=== PATIENT | female | born 1970 | race Caucasian/White ===

== ENCOUNTER 2017-04-21 10:52 | Outpatient (CLI) | payer MEDICAID | END 2017-04-21 10:53 | disposition critical access hospital (66) | LOC: EMS 10:52 | PROVIDERS: ATTEND Surgery | DX: R46.4 Slowness and poor responsiveness (principal); R73.09 Other abnormal glucose | CPT/HCPCS: A0425; A0427 ==

== ENCOUNTER 2017-04-21 11:21 | Inpatient (IN) | payer MEDICAID ==
[2017-04-21] MEDS ORDERED: SODIUM CHLORIDE 0.9% 1,000 ML IV ONE ×4 (11:36→18:14)
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
[2017-04-21 12:14] LABS: MUDS CUTOFF CONCENTRATIONS CUTOFF CONC BELOW:
[2017-04-21 12:20] LABS: VBG BASE EXCESS -32.2 mmol/L (-2 - +2); VBG PCO2 21.6 mmHg (41-51); VBG PH 6.741 (7.31-7.41); VBG PO2 71.2 mmHg (25-47); VBG TOTAL CO2 3.5 mmol/L (24-29)
[2017-04-21 12:21] LABS: BASOPHILS # (AUTO) 0.2 10^3/uL (0.0-0.1); BASOPHILS % (AUTO) 0.7 %; HGB - HEMOGLOBIN 12.2 g/dL (12.0-16.0); LYMPHOCYTES # (AUTO) 1.5 10^3/uL (1.5-3.5); LYMPHOCYTES % (AUTO) 5.8 %; MEAN CORPUSCULAR HGB CONC 30.5 g/dL (32.0-36.0); MEAN PLATELET VOLUME 8.5 fL (7.9-10.8); MONOCYTES # (AUTO) 3.4 10^3/uL (0.0-1.0); MONOCYTES % (AUTO) 13.7 %; NEUTROPHILS # (AUTO) 20.1 10^3/uL (1.5-6.6); NEUTROPHILS % (AUTO) 79.8 %; PLT - PLATELET COUNT 355 10^3/uL (130-450); RED BLOOD COUNT 3.82 10^6/uL (4.20-5.40); RED CELL DISTRIBUTION WIDTH 15.2 % (12.0-15.0); WHITE BLOOD COUNT 25.2 x10^3/uL (4.8-10.8)
[2017-04-21] MEDS ORDERED: INSULIN REGULAR HUMAN 100 UNIT in SODIUM CHLORIDE 0.9% 100ML 99 ML IV STA (12:22)
[2017-04-21] MEDS ORDERED: INSULIN REGULAR HUMAN 100 UNIT/1 ML 10 ML MDV IVP STA (12:22)
[2017-04-21 12:23] LABS: BILIRUBIN,URINE NEGATIVE (NEGATIVE); GLUCOSE, URINE (UA) >=1000 mg/dL (NEGATIVE); KETONES,URINE (UA) 40 mg/dL (NEGATIVE); LEUKOCYTE ESTERASE, URINE NEGATIVE (NEGATIVE); NITRITE,URINE NEGATIVE (NEGATIVE); OCCULT BLOOD,URINE LARGE (NEGATIVE); PROTEIN,URINE 100 mg/dL (NEGATIVE); UROBILINOGEN,URINE 0.2 (NORMAL) E.U./dL (NORMAL)
[2017-04-21 12:27] LABS: CLARITY,URINE CLOUDY (CLEAR); HCG UR QUAL NEGATIVE
[2017-04-21 12:33] LABS: AMORPHOUS SEDIMENT,UR Few /LPF; BACTERIA,URINE Moderate /HPF (None Seen); SQUAMOUS EPITHELIAL CELL,UR FEW Squamous (<= Few)
[2017-04-21 12:35] LABS: AMPHETAMINE SCREEN,URINE NEGATIVE (NEGATIVE); BENZODIAZEPINES SCREEN, URINE NEGATIVE (NEGATIVE); COCAINE SCREEN URINE NEGATIVE (NEGATIVE); METHADONE SCREEN, URINE NEGATIVE (NEGATIVE); METHAMPHETAMINES SCREEN, URINE NEGATIVE (NEGATIVE); OPIATE SCREEN, URINE NEGATIVE (NEGATIVE); OXYCODONE SCREEN, URINE NEGATIVE (NEGATIVE); PROPOXYPHENE SCREEN, URINE NEGATIVE (NEGATIVE); TRICYCLIC ANTIDEPRESSANT,URINE NEGATIVE (NEGATIVE)
[2017-04-21 12:41] LABS: ACETAMINOPHEN < 10 ug/mL (10-30); ALBUMIN 3.6 g/dL (3.2-5.5); ALBUMIN/GLOBULIN RATIO 0.9 (1.0-2.2); ALKALINE PHOSPHATASE 139 IU/L (42-121); ALT ALANINE AMINOTRANSFERASE 64 IU/L (10-60); AST ASPARTATE AMINOTRANSFERASE 78 IU/L (10-42); BILIRUBIN,TOTAL 1.7 mg/dL (0.2-1.0); BUN - BLOOD UREA NITROGEN 28 mg/dL (6-20); CALCIUM 8.4 mg/dL (8.5-10.3); CARBON DIOXIDE - CO2 < 6 mmol/L (21-32); CHLORIDE 88 mmol/L (101-111); CREATININE 2.5 mg/dL (0.4-1.0); GFR - MDRD 21 (>89); GLUCOSE 603 mg/dL (70-100); LIPASE 50 U/L (22-51); SALICYLATE < 6.0 mg/dL; SODIUM 123 mmol/L (135-145); TOTAL PROTEIN 7.4 g/dL (6.7-8.2)
[2017-04-21] MEDS ORDERED: cefTRIAXone 1 GM in SODIUM CHLORIDE 0.9% MINIBAG 100 ML IV STA (12:44)
[2017-04-21 12:53] LABS: RBC MORPHOLOGY (MULTIPLE) 1+ ANISOCYTOSIS (NORMAL)
[2017-04-21 13:00] LABS: KETONES, SERUM (ACETEST) SMALL (NEGATIVE)
[2017-04-21 13:39] LABS: VBG BASE EXCESS -33.5 mmol/L (-2 - +2); VBG PCO2 21.8 mmHg (41-51); VBG PH 6.694 (7.31-7.41); VBG PO2 50.5 mmHg (25-47); VBG TOTAL CO2 3.3 mmol/L (24-29)
[2017-04-21 14:01] LABS: BUN - BLOOD UREA NITROGEN 29 mg/dL (6-20); CALCIUM 7.9 mg/dL (8.5-10.3); CHLORIDE 94 mmol/L (101-111); CREATININE 2.3 mg/dL (0.4-1.0); GFR - MDRD 23 (>89); GLUCOSE 496 mg/dL (70-100); MAGNESIUM 2.5 mg/dL (1.7-2.8); SODIUM 126 mmol/L (135-145)
[2017-04-21 14:02] LABS: CARBON DIOXIDE - CO2 < 6 mmol/L (21-32)
[2017-04-21 14:33] LABS: HB2 TOTAL 13.6 g/dL; HEMOGLOBIN A1C 1.66 g/dL; HEMOGLOBIN A1C % 13.3 % (4.6-6.2)
[2017-04-21] MEDS: SODIUM CHLORIDE FLUSH 0.9% 10 ML SYRINGE IVP SCH ×2 (14:45→22:59)
[2017-04-21 15:19] LABS: KETONES, SERUM (ACETEST) MODERATE (NEGATIVE)
[2017-04-21 15:24] LABS: BUN - BLOOD UREA NITROGEN 28 mg/dL (6-20); CALCIUM 8.2 mg/dL (8.5-10.3); CHLORIDE 94 mmol/L (101-111); CREATININE 2.4 mg/dL (0.4-1.0); GFR - MDRD 22 (>89); GLUCOSE 419 mg/dL (70-100); MAGNESIUM 2.3 mg/dL (1.7-2.8); SODIUM 128 mmol/L (135-145)
[2017-04-21 15:26] LABS: CARBON DIOXIDE - CO2 6 mmol/L (21-32)
[2017-04-21 15:32] LABS: GLUCOSE, URINE (UA) >=1000 mg/dL (NEGATIVE); KETONES,URINE (UA) 40 mg/dL (NEGATIVE); LEUKOCYTE ESTERASE, URINE NEGATIVE (NEGATIVE); NITRITE,URINE NEGATIVE (NEGATIVE); OCCULT BLOOD,URINE MODERATE (NEGATIVE); PROTEIN,URINE 100 mg/dL (NEGATIVE); UROBILINOGEN,URINE 0.2 (NORMAL) E.U./dL (NORMAL)
[2017-04-21 15:38] LABS: BILIRUBIN,URINE NEGATIVE (NEGATIVE); CLARITY,URINE CLEAR (CLEAR); ICTOTEST,URINE NEGATIVE
[2017-04-21 15:46] LABS: AMORPHOUS SEDIMENT,UR Few /LPF; BACTERIA,URINE Few /HPF (None Seen); RBC,URINE 0-5 /HPF (0-5); SQUAMOUS EPITHELIAL CELL,UR FEW Squamous (<= Few)
[2017-04-21] MEDS: NS W/40 MEQ KCL 1,000 ML IV SCH ×2 (17:00→22:59)
[2017-04-21 17:27] LABS: KETONES, SERUM (ACETEST) MODERATE (NEGATIVE)
[2017-04-21 17:32] LABS: BUN - BLOOD UREA NITROGEN 30 mg/dL (6-20); CALCIUM 7.9 mg/dL (8.5-10.3); CHLORIDE 101 mmol/L (101-111); CREATININE 2.3 mg/dL (0.4-1.0); GFR - MDRD 23 (>89); GLUCOSE 287 mg/dL (70-100); MAGNESIUM 1.9 mg/dL (1.7-2.8); SODIUM 129 mmol/L (135-145)
[2017-04-21 17:33] LABS: CARBON DIOXIDE - CO2 6 mmol/L (21-32)
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
[2017-04-21] MEDS: INSULIN GLARGINE 300 UNIT/3 ML PEN SUBQ SCH (18:45)
[2017-04-21 19:42] LABS: CREATININE 2.3 mg/dL (0.4-1.0)
[2017-04-21] MEDS: POTASSIUM CHLOR 10 MEQ/100 ML 10 MEQ/100 ML BAG IV SCH ×3 (19:48→21:51)
[2017-04-21] MEDS: INSULIN REGULAR HUMAN 100 UNIT/1 ML 10 ML MDV SUBQ SCH (19:53)
[2017-04-22] MEDS: INSULIN REGULAR HUMAN 100 UNIT/1 ML 10 ML MDV SUBQ SCH ×4 (00:40→17:52)
[2017-04-22 03:27] LABS: AMYLASE 242 U/L (28-100); KETONES, SERUM (ACETEST) MODERATE (NEGATIVE)
[2017-04-22] MEDS: NS W/40 MEQ KCL 1,000 ML IV SCH ×4 (04:06→20:07)
[2017-04-22] MEDS: INSULIN REGULAR HUMAN 100 UNIT in SODIUM CHLORIDE 0.9% 100ML 99 ML IV SCH ×2 (04:06→21:22)
[2017-04-22 04:52] LABS: BASOPHILS % (AUTO) 0.6 %; HGB - HEMOGLOBIN 10.8 g/dL (12.0-16.0); LYMPHOCYTES % (AUTO) 2.4 %; MEAN CORPUSCULAR HEMOGLOBIN 31.1 pg (27.0-31.0); MEAN CORPUSCULAR HGB CONC 32.1 g/dL (32.0-36.0); MEAN CORPUSCULAR VOLUME 96.7 fL (81.0-99.0); MEAN PLATELET VOLUME 8.2 fL (7.9-10.8); MONOCYTES % (AUTO) 10.9 %; NEUTROPHILS % (AUTO) 86.1 %; PLT - PLATELET COUNT 238 10^3/uL (130-450); RED BLOOD COUNT 3.47 10^6/uL (4.20-5.40); RED CELL DISTRIBUTION WIDTH 15.3 % (12.0-15.0); WHITE BLOOD COUNT 17.2 x10^3/uL (4.8-10.8)
[2017-04-22 04:57] LABS: ABNORMAL LYMPHS % (MANUAL) 0 %
[2017-04-22 05:22] LABS: BAND NEUTROPHILS % (MANUAL) 10 %; DIFFERENTIAL COMMENT MANUAL DIFFERENTIAL; LYMPHOCYTES # (MANUAL) 0.2 10^3/uL (1.5-3.5); LYMPHOCYTES % (MANUAL) 1 %; NEUTROPHILS % (MANUAL) 83 %; PLATELET ESTIMATE, MANUAL NORMAL (130-450,000) (NORMAL); RBC MORPHOLOGY (MULTIPLE) NORMAL APPEARANCE (NORMAL)
[2017-04-22] MEDS: SODIUM CHLORIDE FLUSH 0.9% 10 ML SYRINGE IVP SCH ×3 (07:43→20:47)
[2017-04-22] MEDS ORDERED: LORazepam 2 MG/ML VIAL IVP PRN (07:50)
[2017-04-22] MEDS ORDERED: MAGNESIUM SULFATE 2 GRAM 2 GM/50 ML BAG IV ONE (07:50)
--- NOTE | 2017-04-22 07:56 | PROVIDER PROGRESS NOTE ---
Subjective - Prog Note Date Prog Note Date: 04/22/17 Prog Note Time: 17:45 - Subjective Subjective: She remains off the IV drip of insulin. That stopped last night sometime around 1900. She has been on Lantus, sliding scale insulin as well as fixed dose 4 units every 6 hours. She is eating very little. She sleeps most of the day, will awaken and speak to me, her daughter, but goes right back to sleep. Daughter thinks that she may have been down since at least 8:30 the night before admission. That was the last time she used her phone. Her blood pressures finally Is now in the 1 teens and 120s systolic regularly. Current Medications - Current Medications Current Medications: Active Medications Insulin Human Regular 100 unit (/ Sodium Chloride) 100 mls @ 6 mls/hr IV .[id number] [facility]; 6 UNIT/HR PRN Reason: Protocol Last Admin: 04/22/17 04:06 Dose: Not Given Potassium Chloride/Sodium Chloride (Normal Saline 0.9% W/40 Meq Kcl) 1,000 mls @ 200 mls/hr IV .Q5H [facility] Last Infusion: 04/22/17 07:00 Dose: 200 mls/hr Ceftriaxone Sodium 1 gm/ (Sodium Chloride) 100 mls @ 200 mls/hr IV DAILY [facility] Multivitamins 10 ml/ Sodium (Chloride) 1,010 mls @ 100 mls/hr IV DAILY [facility] Thiamine HCl 100 mg/ Folic (Acid 1 mg/ Sodium Chloride) 101.2 mls @ 50.6 mls/ hr IV DAILY [facility] Magnesium Sulfate (Magnesium Sulfate) 2 gm in 50 mls @ 50 mls/hr IV ONCE ONE Stop: 04/22/17 08:49 Insulin Glargine (Lantus Solostar) 20 unit SUBQ QPM [facility] Last Admin: 04/21/17 18:45 Dose: 20 unit Insulin Human Regular (Novolin R) 3 unit SUBQ Q6HR [facility] Last Admin: 04/22/17 06:21 Dose: 3 unit Lorazepam (Ativan Inj (Vial)) 2 mg IVP Q30M PRN; Protocol PRN Reason: CIWA >8 Sodium Chloride (Normal Saline Flush 0.9%) 10 ml IVP Q8HR [facility] Last Admin: 04/22/17 07:43 Dose: 10 ml Sodium Chloride (Normal Saline Flush 0.9%) 10 ml IVP PRN PRN PRN Reason: NEEDED PER PROVIDER ORDERS Home Medications Unobtainable [HOME MEDICATIONS UNOBTAINABLE] 04/21/17 Objective - Vital Signs/Intake & Output Reviewed Vital Signs: Yes Vital Signs: Vital Signs Temp Pulse Resp BP 04/22/17 07:00 121 H 15 120/69 04/22/17 06:00 120 H 14 119/58 L 04/22/17 05:00 126 H 15 103/58 L 04/22/17 04:00 36.7 C 124 H 14 115/63 Intake & Output: Intake & Output 04/19/17 04/20/17 04/21/17 04/22/17 23:59 23:59 23:59 23:59 Intake Total 4391.067 1580.000 Output Total 765 1845 Balance 3626.067 -265.000 - Objective General Appearance: positive: No acute distress, Other (asleep, stays awake for a few moments, answers appropriately then goes to sleep but doesn't remember why she's here or what happened to bring her here.) Eyes Bilateral: positive: PERRL, EOMI Neck: positive: No JVD. negative: Lymphadenopathy (R), Lymphadenopathy (L), Stiff neck, Carotid bruit Respiratory: positive: Chest non-tender. negative: Wheezes, Rales, Rhonchi Cardiovascular: positive: Regular rate & rhythm. negative: Systolic murmur, Gallop/S4, Friction rub Abdomen: positive: Non-tender, No organomegaly, Nml bowel sounds, No distention. negative: Guarding, Rebound Skin: positive: Warm, Dry Extremities: positive: No pedal edema Neurologic/Psychiatric: positive: CN's nml (2-12), Motor nml, Disoriented to place (at times), Disoriented to time (at times) - Lab Results Fish Bones: 04/22/17 04:10 04/22/17 06:10 Other Labs: Lab Results x24hrs 04/22/17 04/22/17 04/22/17 Range/Units 07:10 04:10 04:10 WBC 17.2 H (4.8-10.8) x10^3/uL RBC 3.47 L (4.20-5.40) 10^6/uL Hgb 10.8 L (12.0-16.0) g/dL Hct 33.5 L (37.0-47.0) % MCV 96.7 (81.0-99.0) fL MCH 31.1 H (27.0-31.0) pg MCHC 32.1 (32.0-36.0) g/dL RDW 15.3 H (12.0-15.0) % Plt Count 238 (130-450) 10^3/uL MPV 8.2 (7.9-10.8) fL Neut # Not Reportable Lymph # Not Reportable Price # Not Reportable Eos # Not Reportable Baso # Not Reportable Absolute Nucleated RBC Not Reportable Total Counted 100 Band Neuts % (Manual) 10 (0 - 10) % Abnorm Lymph % (Manual) 0 % Nucleated RBC % Not Reportable Neutrophils # (Manual) 16.0 H (1.5-6.6) 10^3/uL Lymphocytes # (Manual) 0.2 L (1.5-3.5) 10^3/uL Monocytes # (Manual) 1.0 (0.0-1.0) 10^3/uL Eosinophils # (Manual) 0.0 (0-0.7) 10^3/uL Basophils # (Manual) 0.0 (0-0.1) 10^3/uL Differential Comment MANUAL DIFFERENTIAL Platelet Estimate NORMAL (130-450,000) (NORMAL) RBC Morph Micro Appear NORMAL APPEARANCE (NORMAL) VBG pH (7.31-7.41) VBG pCO2 (41-51) mmHg VBG pO2 (25-47) mmHg VBG HCO3 (23-28) mmol/L VBG Total CO2 (24-29) mmol/L VBG O2 Saturation (60-80) % VBG Base Excess (-2 - +2) mmol/L Sodium (135-145) mmol/L Potassium (3.5-5.0) mmol/L Chloride (101-111) mmol/L Carbon Dioxide (21-32) mmol/L Anion Gap (6-13) BUN (6-20) mg/dL Creatinine (0.4-1.0) mg/dL Estimated GFR (MDRD) (>89) Glucose (70-100) mg/dL Calcium (8.5-10.3) mg/dL Magnesium (1.7-2.8) mg/dL Troponin I 0.04 (<0.49) ng/mL Amylase (28-100) U/L Urine Color Urine Clarity (CLEAR) Urine pH (5.0-7.5) PH Ur Specific Dent (1.002-1.030) Urine Protein (NEGATIVE) mg/dL Urine Glucose (UA) (NEGATIVE) mg/dL Urine Ketones (NEGATIVE) mg/dL Urine Occult Blood (NEGATIVE) Urine Nitrite (NEGATIVE) Urine Bilirubin (NEGATIVE) Urine Urobilinogen (NORMAL) E.U./dL Ur Leukocyte Esterase (NEGATIVE) Urine RBC (0-5) /HPF Urine WBC (0-5) /HPF Ur Squamous Epith Cells (<= Few) Amorphous Sediment /LPF Urine Bacteria (None Seen) /HPF Ur Microscopic Review Urine Culture Comments Serum Ketones MODERATE H (NEGATIVE) 04/22/17 04/22/17 04/22/17 Range/Units 03:05 00:10 00:10 WBC (4.8-10.8) x10^3/uL RBC (4.20-5.40) 10^6/uL Hgb (12.0-16.0) g/dL Hct (37.0-47.0) % MCV (81.0-99.0) fL MCH (27.0-31.0) pg MCHC (32.0-36.0) g/dL RDW (12.0-15.0) % Plt Count (130-450) 10^3/uL MPV (7.9-10.8) fL Neut # Lymph # Price # Eos # Baso # Absolute Nucleated RBC Total Counted Band Neuts % (Manual) (0 - 10) % Abnorm Lymph % (Manual) % Nucleated RBC % Neutrophils # (Manual) (1.5-6.6) 10^3/uL Lymphocytes # (Manual) (1.5-3.5) 10^3/uL Monocytes # (Manual) (0.0-1.0) 10^3/uL Eosinophils # (Manual) (0-0.7) 10^3/uL Basophils # (Manual) (0-0.1) 10^3/uL Differential Comment Platelet Estimate (NORMAL) RBC Morph Micro Appear (NORMAL) VBG pH (7.31-7.41) VBG pCO2 (41-51) mmHg VBG pO2 (25-47) mmHg VBG HCO3 (23-28) mmol/L VBG Total CO2 (24-29) mmol/L VBG O2 Saturation (60-80) % VBG Base Excess (-2 - +2) mmol/L Sodium (135-145) mmol/L Potassium (3.5-5.0) mmol/L Chloride (101-111) mmol/L Carbon Dioxide (21-32) mmol/L Anion Gap (6-13) BUN (6-20) mg/dL Creatinine (0.4-1.0) mg/dL Estimated GFR (MDRD) (>89) Glucose (70-100) mg/dL Calcium (8.5-10.3) mg/dL Magnesium (1.7-2.8) mg/dL Troponin I < 0.04 (<0.49) ng/mL Amylase 242 H (28-100) U/L Urine Color Urine Clarity (CLEAR) Urine pH (5.0-7.5) PH Ur Specific Dent (1.002-1.030) Urine Protein (NEGATIVE) mg/dL Urine Glucose (UA) (NEGATIVE) mg/dL Urine Ketones (NEGATIVE) mg/dL Urine Occult Blood (NEGATIVE) Urine Nitrite (NEGATIVE) Urine Bilirubin (NEGATIVE) Urine Urobilinogen (NORMAL) E.U./dL Ur Leukocyte Esterase (NEGATIVE) Urine RBC (0-5) /HPF Urine WBC (0-5) /HPF Ur Squamous Epith Cells (<= Few) Amorphous Sediment /LPF Urine Bacteria (None Seen) /HPF Ur Microscopic Review Urine Culture Comments Serum Ketones MODERATE H MODERATE H (NEGATIVE) 04/22/17 04/21/17 04/21/17 Range/Units 00:10 19:00 19:00 WBC (4.8-10.8) x10^3/uL RBC (4.20-5.40) 10^6/uL Hgb (12.0-16.0) g/dL Hct (37.0-47.0) % MCV (81.0-99.0) fL MCH (27.0-31.0) pg MCHC (32.0-36.0) g/dL RDW (12.0-15.0) % Plt Count (130-450) 10^3/uL MPV (7.9-10.8) fL Neut # Lymph # Price # Eos # Baso # Absolute Nucleated RBC Total Counted Band Neuts % (Manual) (0 - 10) % Abnorm Lymph % (Manual) % Nucleated RBC % Neutrophils # (Manual) (1.5-6.6) 10^3/uL Lymphocytes # (Manual) (1.5-3.5) 10^3/uL Monocytes # (Manual) (0.0-1.0) 10^3/uL Eosinophils # (Manual) (0-0.7) 10^3/uL Basophils # (Manual) (0-0.1) 10^3/uL Differential Comment Platelet Estimate (NORMAL) RBC Morph Micro Appear (NORMAL) VBG pH (7.31-7.41) VBG pCO2 (41-51) mmHg VBG pO2 (25-47) mmHg VBG HCO3 (23-28) mmol/L VBG Total CO2 (24-29) mmol/L VBG O2 Saturation (60-80) % VBG Base Excess (-2 - +2) mmol/L Sodium 132 L (135-145) mmol/L Potassium 2.9 L (3.5-5.0) mmol/L Chloride 106 (101-111) mmol/L Carbon Dioxide 9 L* (21-32) mmol/L Anion Gap 17.0 H (6-13) BUN 29 H (6-20) mg/dL Creatinine 2.3 H (0.4-1.0) mg/dL Estimated GFR (MDRD) 23 L (>89) Glucose 152 H 211 H (70-100) mg/dL Calcium 8.0 L (8.5-10.3) mg/dL Magnesium (1.7-2.8) mg/dL Troponin I < 0.04 (<0.49) ng/mL Amylase (28-100) U/L Urine Color Urine Clarity (CLEAR) Urine pH (5.0-7.5) PH Ur Specific [place] (1.002-1.030) Urine Protein (NEGATIVE) mg/dL Urine Glucose (UA) (NEGATIVE) mg/dL Urine Ketones (NEGATIVE) mg/dL Urine Occult Blood (NEGATIVE) Urine Nitrite (NEGATIVE) Urine Bilirubin (NEGATIVE) Urine Urobilinogen (NORMAL) E.U./dL Ur Leukocyte Esterase (NEGATIVE) Urine RBC (0-5) /HPF Urine WBC (0-5) /HPF Ur Squamous Epith Cells (<= Few) Amorphous Sediment /LPF Urine Bacteria (None Seen) /HPF Ur Microscopic Review Urine Culture Comments Serum Ketones (NEGATIVE) 04/21/17 04/21/17 04/21/17 Range/Units 17:08 16:01 15:24 WBC (4.8-10.8) x10^3/uL RBC (4.20-5.40) 10^6/uL Hgb (12.0-16.0) g/dL Hct (37.0-47.0) % MCV (81.0-99.0) fL MCH (27.0-31.0) pg MCHC (32.0-36.0) g/dL RDW (12.0-15.0) % Plt Count (130-450) 10^3/uL MPV (7.9-10.8) fL Neut # Lymph # Price # Eos # Baso # Absolute Nucleated RBC Total Counted Band Neuts % (Manual) (0 - 10) % Abnorm Lymph % (Manual) % Nucleated RBC % Neutrophils # (Manual) (1.5-6.6) 10^3/uL Lymphocytes # (Manual) (1.5-3.5) 10^3/uL Monocytes # (Manual) (0.0-1.0) 10^3/uL Eosinophils # (Manual) (0-0.7) 10^3/uL Basophils # (Manual) (0-0.1) 10^3/uL Differential Comment Platelet Estimate (NORMAL) RBC Morph Micro Appear (NORMAL) VBG pH (7.31-7.41) VBG pCO2 (41-51) mmHg VBG pO2 (25-47) mmHg VBG HCO3 (23-28) mmol/L VBG Total CO2 (24-29) mmol/L VBG O2 Saturation (60-80) % VBG Base Excess (-2 - +2) mmol/L Sodium 129 L (135-145) mmol/L Potassium 3.2 L (3.5-5.0) mmol/L Chloride 101 (101-111) mmol/L Carbon Dioxide 6 L* (21-32) mmol/L Anion Gap 22.0 H (6-13) BUN 30 H (6-20) mg/dL Creatinine 2.3 H (0.4-1.0) mg/dL Estimated GFR (MDRD) 23 L (>89) Glucose 287 H 334 H (70-100) mg/dL Calcium 7.9 L (8.5-10.3) mg/dL Magnesium 1.9 (1.7-2.8) mg/dL Troponin I (<0.49) ng/mL Amylase (28-100) U/L Urine Color YELLOW Urine Clarity CLEAR (CLEAR) Urine pH 6.0 (5.0-7.5) PH Ur Specific Dent 1.025 (1.002-1.030) Urine Protein 100 H (NEGATIVE) mg/dL Urine Glucose (UA) >=1000 H (NEGATIVE) mg/dL Urine Ketones 40 H (NEGATIVE) mg/dL Urine Occult Blood MODERATE H (NEGATIVE) Urine Nitrite NEGATIVE (NEGATIVE) Urine Bilirubin NEGATIVE (NEGATIVE) Urine Urobilinogen 0.2 (NORMAL) (NORMAL) E.U./dL Ur Leukocyte Esterase NEGATIVE (NEGATIVE) Urine RBC 0-5 (0-5) /HPF Urine WBC 6-10 H (0-5) /HPF Ur Squamous Epith Cells FEW Squamous (<= Few) Amorphous Sediment Few /LPF Urine Bacteria Few (None Seen) /HPF Ur Microscopic Review INDICATED Urine Culture Comments INDICATED Serum Ketones MODERATE H (NEGATIVE) 04/21/17 04/21/17 04/21/17 Range/Units 15:01 14:20 13:30 WBC (4.8-10.8) x10^3/uL RBC (4.20-5.40) 10^6/uL Hgb (12.0-16.0) g/dL Hct (37.0-47.0) % MCV (81.0-99.0) fL MCH (27.0-31.0) pg MCHC (32.0-36.0) g/dL RDW (12.0-15.0) % Plt Count (130-450) 10^3/uL MPV (7.9-10.8) fL Neut # Lymph # Price # Eos # Baso # Absolute Nucleated RBC Total Counted Band Neuts % (Manual) (0 - 10) % Abnorm Lymph % (Manual) % Nucleated RBC % Neutrophils # (Manual) (1.5-6.6) 10^3/uL Lymphocytes # (Manual) (1.5-3.5) 10^3/uL Monocytes # (Manual) (0.0-1.0) 10^3/uL Eosinophils # (Manual) (0-0.7) 10^3/uL Basophils # (Manual) (0-0.1) 10^3/uL Differential Comment Platelet Estimate (NORMAL) RBC Morph Micro Appear (NORMAL) VBG pH (7.31-7.41) VBG pCO2 (41-51) mmHg VBG pO2 (25-47) mmHg VBG HCO3 (23-28) mmol/L VBG Total CO2 (24-29) mmol/L VBG O2 Saturation (60-80) % VBG Base Excess (-2 - +2) mmol/L Sodium 128 L 126 L (135-145) mmol/L Potassium 3.3 L 3.6 (3.5-5.0) mmol/L Chloride 94 L 94 L (101-111) mmol/L Carbon Dioxide 6 L* < 6 L* (21-32) mmol/L Anion Gap 29.0 H 29.0 H (6-13) BUN 28 H 29 H (6-20) mg/dL Creatinine 2.4 H 2.3 H (0.4-1.0) mg/dL Estimated GFR (MDRD) 22 L 23 L (>89) Glucose 419 H 453 H 496 H (70-100) mg/dL Calcium 8.2 L 7.9 L (8.5-10.3) mg/dL Magnesium 2.3 2.5 (1.7-2.8) mg/dL Troponin I (<0.49) ng/mL Amylase (28-100) U/L Urine Color Urine Clarity (CLEAR) Urine pH (5.0-7.5) PH Ur Specific Dent (1.002-1.030) Urine Protein (NEGATIVE) mg/dL Urine Glucose (UA) (NEGATIVE) mg/dL Urine Ketones (NEGATIVE) mg/dL Urine Occult Blood (NEGATIVE) Urine Nitrite (NEGATIVE) Urine Bilirubin (NEGATIVE) Urine Urobilinogen (NORMAL) E.U./dL Ur Leukocyte Esterase (NEGATIVE) Urine RBC (0-5) /HPF Urine WBC (0-5) /HPF Ur Squamous Epith Cells (<= Few) Amorphous Sediment /LPF Urine Bacteria (None Seen) /HPF Ur Microscopic Review Urine Culture Comments Serum Ketones MODERATE H (NEGATIVE) 04/21/17 Range/Units 13:29 WBC (4.8-10.8) x10^3/uL RBC (4.20-5.40) 10^6/uL Hgb (12.0-16.0) g/dL Hct (37.0-47.0) % MCV (81.0-99.0) fL MCH (27.0-31.0) pg MCHC (32.0-36.0) g/dL RDW (12.0-15.0) % Plt Count (130-450) 10^3/uL MPV (7.9-10.8) fL Neut # Lymph # Price # Eos # Baso # Absolute Nucleated RBC Total Counted Band Neuts % (Manual) (0 - 10) % Abnorm Lymph % (Manual) % Nucleated RBC % Neutrophils # (Manual) (1.5-6.6) 10^3/uL Lymphocytes # (Manual) (1.5-3.5) 10^3/uL Monocytes # (Manual) (0.0-1.0) 10^3/uL Eosinophils # (Manual) (0-0.7) 10^3/uL Basophils # (Manual) (0-0.1) 10^3/uL Differential Comment Platelet Estimate (NORMAL) RBC Morph Micro Appear (NORMAL) VBG pH 6.694 L (7.31-7.41) VBG pCO2 21.8 L (41-51) mmHg VBG pO2 50.5 H (25-47) mmHg VBG HCO3 2.6 L (23-28) mmol/L VBG Total CO2 3.3 L (24-29) mmol/L VBG O2 Saturation 80.0 (60-80) % VBG Base Excess -33.5 L (-2 - +2) mmol/L Sodium (135-145) mmol/L Potassium (3.5-5.0) mmol/L Chloride (101-111) mmol/L Carbon Dioxide (21-32) mmol/L Anion Gap (6-13) BUN (6-20) mg/dL Creatinine (0.4-1.0) mg/dL Estimated GFR (MDRD) (>89) Glucose (70-100) mg/dL Calcium (8.5-10.3) mg/dL Magnesium (1.7-2.8) mg/dL Troponin I (<0.49) ng/mL Amylase (28-100) U/L Urine Color Urine Clarity (CLEAR) Urine pH (5.0-7.5) PH Ur Specific Dent (1.002-1.030) Urine Protein (NEGATIVE) mg/dL Urine Glucose (UA) (NEGATIVE) mg/dL Urine Ketones (NEGATIVE) mg/dL Urine Occult Blood (NEGATIVE) Urine Nitrite (NEGATIVE) Urine Bilirubin (NEGATIVE) Urine Urobilinogen (NORMAL) E.U./dL Ur Leukocyte Esterase (NEGATIVE) Urine RBC (0-5) /HPF Urine WBC (0-5) /HPF Ur Squamous Epith Cells (<= Few) Amorphous Sediment /LPF Urine Bacteria (None Seen) /HPF Ur Microscopic Review Urine Culture Comments Serum Ketones (NEGATIVE) Assessment/Plan - Problem List (1) Acute metabolic encephalopathy Impression: from DKA, dehydration and I wonder if there was any hypoxia while down bc she's not waking up very quickly. her labs have normalized. Vitals have normalized. Urine tox screen ordered this am and negative. CT of head in am if not back to baseline. (2) DKA (diabetic ketoacidoses) Impression: new diagnosis suspect chronic pancreatitis resolved. Qualifiers: Diabetes mellitus type: type 2 Diabetes mellitus complication detail: with coma Qualified Code(s): E11.11 - Type 2 diabetes mellitus with ketoacidosis with coma (3) Type 2 diabetes mellitus, uncontrolled Impression: new diagnosis for her. waiting for her to become more alert to begin education. right now on lantus and short acting q6h. discussed with her daughter. Qualifiers: Diabetes mellitus complication status: with unspecified complications
[2017-04-22 08:20] LABS: ALBUMIN 2.9 g/dL (3.2-5.5); ALBUMIN/GLOBULIN RATIO 0.9 (1.0-2.2); BILIRUBIN,TOTAL 1.4 mg/dL (0.2-1.0); CREATININE 2.1 mg/dL (0.4-1.0); TOTAL PROTEIN 6.2 g/dL (6.7-8.2)
[2017-04-22] MEDS ORDERED: cefTRIAXone 1 GM VIAL IVP SCH (09:00)
[2017-04-22 09:05] LABS: INR 1.2 (0.8-1.2); PT - PROTHROMBIN TIME 13.4 secs (9.9-12.6)
[2017-04-22] MEDS: SODIUM BICARBONATE 100 MEQ in DEXTROSE 5% 1,000 ML IV SCH ×2 (11:00→21:39)
[2017-04-22] MEDS: cefTRIAXone 1 GM in SODIUM CHLORIDE 0.9% MINIBAG 100 ML IV SCH (11:00)
[2017-04-22] MEDS: SODIUM CHLORIDE FLUSH 0.9% 10 ML SYRINGE IVP PRN (11:19)
[2017-04-22] MEDS: THIAMINE INJ 100 MG, FOLIC ACID INJ 1 MG in SODIUM CHLORIDE 0.9% 100ML 100 ML IV SCH (11:25)
[2017-04-22] MEDS: MULTIVITAMIN 10 ML in SODIUM CHLORIDE 0.9% 1,000 ML IV SCH (13:15)
[2017-04-22 17:13] LABS: MUDS CUTOFF CONCENTRATIONS CUTOFF CONC BELOW:
[2017-04-22 17:29] LABS: AMPHETAMINE SCREEN,URINE NEGATIVE (NEGATIVE); BENZODIAZEPINES SCREEN, URINE NEGATIVE (NEGATIVE); COCAINE SCREEN URINE NEGATIVE (NEGATIVE); METHADONE SCREEN, URINE NEGATIVE (NEGATIVE); METHAMPHETAMINES SCREEN, URINE NEGATIVE (NEGATIVE); OPIATE SCREEN, URINE NEGATIVE (NEGATIVE); OXYCODONE SCREEN, URINE NEGATIVE (NEGATIVE); PROPOXYPHENE SCREEN, URINE NEGATIVE (NEGATIVE); TRICYCLIC ANTIDEPRESSANT,URINE NEGATIVE (NEGATIVE)
[2017-04-22] MEDS: INSULIN GLARGINE 300 UNIT/3 ML PEN SUBQ SCH (20:45)
[2017-04-23] MEDS: INSULIN REGULAR HUMAN 100 UNIT/1 ML 10 ML MDV SUBQ SCH ×3 (00:08→11:56)
[2017-04-23] MEDS: NS W/40 MEQ KCL 1,000 ML IV SCH ×3 (01:07→10:41)
[2017-04-23 05:04] LABS: BASOPHILS % (AUTO) 0.4 %; HGB - HEMOGLOBIN 10.1 g/dL (12.0-16.0); LYMPHOCYTES # (AUTO) 0.9 10^3/uL (1.5-3.5); LYMPHOCYTES % (AUTO) 9.1 %; MEAN CORPUSCULAR HEMOGLOBIN 32.2 pg (27.0-31.0); MEAN CORPUSCULAR HGB CONC 34.1 g/dL (32.0-36.0); MEAN CORPUSCULAR VOLUME 94.3 fL (81.0-99.0); MEAN PLATELET VOLUME 8.1 fL (7.9-10.8); MONOCYTES # (AUTO) 1.1 10^3/uL (0.0-1.0); MONOCYTES % (AUTO) 11.2 %; NEUTROPHILS # (AUTO) 7.5 10^3/uL (1.5-6.6); NEUTROPHILS % (AUTO) 79.3 %; PLT - PLATELET COUNT 166 10^3/uL (130-450); RED BLOOD COUNT 3.15 10^6/uL (4.20-5.40); RED CELL DISTRIBUTION WIDTH 16.1 % (12.0-15.0); WHITE BLOOD COUNT 9.5 x10^3/uL (4.8-10.8)
--- NOTE | 2017-04-23 06:44 | PROVIDER PROGRESS NOTE ---
Subjective - Prog Note Date Prog Note Date: 04/23/17 Prog Note Time: 06:42 - Subjective Pt reports feeling: Improved Subjective: she is awake, eating her grilled cheese and tomato soup. doesn't remember last 3 days. remembers falling last week. she and daughter and friend discuss a 5th of vodka a day for her intake. She has been changing with mentation for close to 2 years. Falling asleep while out with friends, drooling, slack. When living in [place], did other recreational drugs like speed. Current Medications - Current Medications Current Medications: Active Medications Insulin Human Regular 100 unit (/ Sodium Chloride) 100 mls @ 6 mls/hr IV .[id number] [facility]; 6 UNIT/HR PRN Reason: Protocol Last Admin: 04/22/17 21:22 Dose: Not Given Potassium Chloride/Sodium Chloride (Normal Saline 0.9% W/40 Meq Kcl) 1,000 mls @ 200 mls/hr IV .Q5H [facility] Last Admin: 04/23/17 05:12 Dose: Not Given Ceftriaxone Sodium 1 gm/ (Sodium Chloride) 100 mls @ 200 mls/hr IV DAILY [facility] Last Infusion: 04/22/17 11:40 Dose: Infused Multivitamins 10 ml/ Sodium (Chloride) 1,010 mls @ 100 mls/hr IV DAILY [facility] Last Infusion: 04/22/17 23:30 Dose: Infused Thiamine HCl 100 mg/ Folic (Acid 1 mg/ Sodium Chloride) 101.2 mls @ 50.6 mls/ hr IV DAILY [facility] Last Infusion: 04/22/17 13:15 Dose: Infused Sodium Bicarbonate 100 meq/ (Dextrose) 1,100 mls @ 100 mls/hr IV .Q11H [facility] Last Infusion: 04/23/17 05:00 Dose: 100 mls/hr Insulin Glargine (Lantus Solostar) 20 unit SUBQ QPM [facility] Last Admin: 04/22/17 20:45 Dose: 20 unit Insulin Human Regular (Novolin R) 4 unit SUBQ Q6HR [facility] Last Admin: 04/23/17 06:21 Dose: 4 unit Lorazepam (Ativan Inj (Vial)) 2 mg IVP Q30M PRN; Protocol PRN Reason: CIWA >8 Sodium Chloride (Normal Saline Flush 0.9%) 10 ml IVP Q8HR [facility] Last Admin: 04/22/17 20:47 Dose: 10 ml Sodium Chloride (Normal Saline Flush 0.9%) 10 ml IVP PRN PRN PRN Reason: NEEDED PER PROVIDER ORDERS Last Admin: 04/22/17 11:19 Dose: 10 ml Home Medications Unobtainable [HOME MEDICATIONS UNOBTAINABLE] 04/21/17 Objective - Vital Signs/Intake & Output Reviewed Vital Signs: Yes Vital Signs: Vital Signs Pulse Resp BP Pulse Ox 04/23/17 06:00 98 10 L 114/71 04/23/17 05:00 110 H 18 132/83 H 04/23/17 04:00 106 H 18 131/84 H 97 04/23/17 03:00 105 H 16 134/80 H Intake & Output: Intake & Output 04/20/17 04/21/17 04/22/17 04/23/17 23:59 23:59 23:59 23:59 Intake Total 4396.667 7037.867 1799.999 Output Total 765 5500 1530 Balance 3631.667 1537.867 269.999 - Objective General Appearance: positive: No acute distress, Other (still slow with conversation but overall much more alert than the entire admit. has occ word finding problems. she has to think and slowly bring her food to her mouth, remember to chew and does all this in slow motion. Not happy w daughter and friends conversation where they share her history with me.) Eyes Bilateral: positive: PERRL, EOMI ENT: positive: Pharynx nml Neck: positive: No JVD. negative: Stiff neck, Carotid bruit Respiratory: positive: Chest non-tender. negative: Wheezes, Rales, Rhonchi Cardiovascular: positive: Regular rate & rhythm. negative: Gallop/S4, Friction rub Abdomen: positive: Non-tender, No organomegaly, Nml bowel sounds, No distention Skin: positive: Warm, Dry Extremities: positive: Full ROM, No pedal edema Neurologic/Psychiatric: positive: CN's nml (2-12), Disoriented to time, Slurred/ abnml speech, Other (no recollection of last 3 days). negative: Motor nml ( slow slow responses) - Lab Results Fish Bones: 04/23/17 04:09 04/23/17 04:09 Other Labs: Lab Results x24hrs 04/23/17 04/22/17 04/22/17 Range/Units 04:09 17:00 08:50 WBC 9.5 (4.8-10.8) x10^3/uL RBC 3.15 L (4.20-5.40) 10^6/uL Hgb 10.1 L (12.0-16.0) g/dL Hct 29.7 L (37.0-47.0) % MCV 94.3 (81.0-99.0) fL MCH 32.2 H (27.0-31.0) pg MCHC 34.1 (32.0-36.0) g/dL RDW 16.1 H (12.0-15.0) % Plt Count 166 (130-450) 10^3/uL MPV 8.1 (7.9-10.8) fL Neut # 7.5 H (1.5-6.6) 10^3/uL Lymph # 0.9 L (1.5-3.5) 10^3/uL [place] # 1.1 H (0.0-1.0) 10^3/uL Eos # 0.0 (0.0-0.7) 10^3/uL Baso # 0.0 (0.0-0.1) 10^3/uL Absolute Nucleated RBC 0.01 x10^3/uL Nucleated RBC % 0.1 /100WBC PT 13.4 H (9.9-12.6) secs INR 1.2 (0.8-1.2) Sodium (135-145) mmol/L Potassium (3.5-5.0) mmol/L Chloride (101-111) mmol/L Carbon Dioxide (21-32) mmol/L Anion Gap (6-13) BUN (6-20) mg/dL Creatinine (0.4-1.0) mg/dL Estimated GFR (MDRD) (>89) Glucose (70-100) mg/dL Calcium (8.5-10.3) mg/dL Total Bilirubin (0.2-1.0) mg/dL AST (10-42) IU/L ALT (10-60) IU/L Alkaline Phosphatase (42-121) IU/L Troponin I (<0.49) ng/mL Total Protein (6.7-8.2) g/dL Albumin (3.2-5.5) g/dL Globulin (2.1-4.2) g/dL Albumin/Globulin Ratio (1.0-2.2) Urine Opiates Screen NEGATIVE (NEGATIVE) Ur Oxycodone Screen NEGATIVE (NEGATIVE) Urine Methadone Screen NEGATIVE (NEGATIVE) Ur Propoxyphene Screen NEGATIVE (NEGATIVE) Ur Barbiturates Screen NEGATIVE (NEGATIVE) Ur Tricyclics Screen NEGATIVE (NEGATIVE) Ur Phencyclidine Scrn NEGATIVE (NEGATIVE) Ur Amphetamine Screen NEGATIVE (NEGATIVE) U Methamphetamines Scrn NEGATIVE (NEGATIVE) U Benzodiazepines Scrn NEGATIVE (NEGATIVE) Urine Cocaine Screen NEGATIVE (NEGATIVE) U Cannabinoids Screen NEGATIVE (NEGATIVE) Serum Ketones (NEGATIVE) 04/22/17 04/22/17 04/22/17 Range/Units 07:10 07:10 06:10 WBC (4.8-10.8) x10^3/uL RBC (4.20-5.40) 10^6/uL Hgb (12.0-16.0) g/dL Hct (37.0-47.0) % MCV (81.0-99.0) fL MCH (27.0-31.0) pg MCHC (32.0-36.0) g/dL RDW (12.0-15.0) % Plt Count (130-450) 10^3/uL MPV (7.9-10.8) fL Neut # (1.5-6.6) 10^3/uL Lymph # (1.5-3.5) 10^3/uL [place] # (0.0-1.0) 10^3/uL Eos # (0.0-0.7) 10^3/uL Baso # (0.0-0.1) 10^3/uL Absolute Nucleated RBC x10^3/uL Nucleated RBC % /100WBC PT (9.9-12.6) secs INR (0.8-1.2) Sodium 138 (135-145) mmol/L Potassium 4.7 (3.5-5.0) mmol/L Chloride 117 H (101-111) mmol/L Carbon Dioxide 8 L* (21-32) mmol/L Anion Gap 12.0 (6-13) BUN 30 H (6-20) mg/dL Creatinine 2.1 H (0.4-1.0) mg/dL Estimated GFR (MDRD) 25 L (>89) Glucose 177 H (70-100) mg/dL Calcium 9.0 (8.5-10.3) mg/dL Total Bilirubin 1.4 H (0.2-1.0) mg/dL AST 41 (10-42) IU/L ALT 40 (10-60) IU/L Alkaline Phosphatase 100 (42-121) IU/L Troponin I 0.04 (<0.49) ng/mL Total Protein 6.2 L (6.7-8.2) g/dL Albumin 2.9 L (3.2-5.5) g/dL Globulin 3.3 (2.1-4.2) g/dL Albumin/Globulin Ratio 0.9 L (1.0-2.2) Urine Opiates Screen (NEGATIVE) Ur Oxycodone Screen (NEGATIVE) Urine Methadone Screen (NEGATIVE) Ur Propoxyphene Screen (NEGATIVE) Ur Barbiturates Screen (NEGATIVE) Ur Tricyclics Screen (NEGATIVE) Ur Phencyclidine Scrn (NEGATIVE) Ur Amphetamine Screen (NEGATIVE) U Methamphetamines Scrn (NEGATIVE) U Benzodiazepines Scrn (NEGATIVE) Urine Cocaine Screen (NEGATIVE) U Cannabinoids Screen (NEGATIVE) Serum Ketones MODERATE H (NEGATIVE) Assessment/Plan - Problem List (1) Acute metabolic encephalopathy Impression: from DKA, dehydration and I wonder if there was any hypoxia while down bc she's did not wake up very quickly. her labs and vital signs normalized by 04/22/17. Urine tox screen negative. CT of head in am if not back to baseline. But she is more awake this am. Friend and daughter feel she already had cognitive changes in the last year so what I am seeing is slightly worse but not surprising. Bc of the fall last week, will go ahead and do CT head (2) DKA (diabetic ketoacidoses) Impression: new diagnosis suspect chronic pancreatitis resolved. Qualifiers: Diabetes mellitus type: type 2 Diabetes mellitus complication detail: with coma Qualified Code(s): E11.11 - Type 2 diabetes mellitus with ketoacidosis with coma (3) Type 2 diabetes mellitus, uncontrolled Impression: new diagnosis for her. I was waiting for her to become more alert to begin education. right now on lantus and short acting q6h. discussed with her daughter and friend. With her cognition impaired, I don't know how much she will learn to be safe right now. Qualifiers: Diabetes mellitus complication status: with unspecified complications (4) Alcohol abuse Impression: on going rose mary barbosa and [facility] protocol. So far no benzo's needed. Abuse may have affected cognition and this latest illness has made it worse. Social Service Consult.
[2017-04-23] MEDS: SODIUM CHLORIDE FLUSH 0.9% 10 ML SYRINGE IVP SCH ×3 (07:04→20:58)
[2017-04-23 07:50] LABS: ALBUMIN 2.5 g/dL (3.2-5.5); ALBUMIN/GLOBULIN RATIO 0.9 (1.0-2.2); BILIRUBIN,TOTAL 0.5 mg/dL (0.2-1.0); CALCIUM 8.7 mg/dL (8.5-10.3); CREATININE 1.5 mg/dL (0.4-1.0); TOTAL PROTEIN 5.4 g/dL (6.7-8.2)
[2017-04-23] MEDS: cefTRIAXone 1 GM in SODIUM CHLORIDE 0.9% MINIBAG 100 ML IV SCH (08:48)
[2017-04-23] MEDS: MULTIVITAMIN 10 ML in SODIUM CHLORIDE 0.9% 1,000 ML IV SCH (08:59)
[2017-04-23] MEDS: THIAMINE INJ 100 MG, FOLIC ACID INJ 1 MG in SODIUM CHLORIDE 0.9% 100ML 100 ML IV SCH (08:59)
[2017-04-23] MEDS ORDERED: DEXTROSE 5% 1,000 ML IV ONE (11:52)
[2017-04-23] MEDS: DEXTROSE 5% 1,000 ML IV SCH ×2 (12:07→20:01)
[2017-04-23] MEDS: SODIUM CHLORIDE FLUSH 0.9% 10 ML SYRINGE IVP PRN (12:08)
[2017-04-23 19:29] LABS: HB2 TOTAL 10.5 g/dL; HEMOGLOBIN A1C 1.35 g/dL; HEMOGLOBIN A1C % 13.9 % (4.6-6.2)
[2017-04-23] MEDS: POTASSIUM PHOSPHATE 15 MMOL in SODIUM CHLORIDE 0.9% 250 ML IV SCH (20:01)
[2017-04-23] MEDS: INSULIN GLARGINE 300 UNIT/3 ML PEN SUBQ SCH (20:57)
[2017-04-23] MEDS: INSULIN ASPART 300 UNIT/3 ML PEN SUBQ SCH (20:57)
[2017-04-24] MEDS: POTASSIUM PHOSPHATE 15 MMOL in SODIUM CHLORIDE 0.9% 250 ML IV SCH (00:02)
[2017-04-24] MEDS: DEXTROSE 5% 1,000 ML IV SCH (03:32)
[2017-04-24 04:31] LABS: BASOPHILS % (AUTO) 0.7 %; EOSINOPHILS % (AUTO) 0.4 %; HGB - HEMOGLOBIN 9.4 g/dL (12.0-16.0); LYMPHOCYTES # (AUTO) 1.4 10^3/uL (1.5-3.5); LYMPHOCYTES % (AUTO) 28.5 %; MEAN CORPUSCULAR HEMOGLOBIN 32.2 pg (27.0-31.0); MEAN CORPUSCULAR VOLUME 94.7 fL (81.0-99.0); MEAN PLATELET VOLUME 7.9 fL (7.9-10.8); MONOCYTES # (AUTO) 0.5 10^3/uL (0.0-1.0); MONOCYTES % (AUTO) 10.8 %; NEUTROPHILS % (AUTO) 59.6 %; PLT - PLATELET COUNT 130 10^3/uL (130-450); RED BLOOD COUNT 2.91 10^6/uL (4.20-5.40); RED CELL DISTRIBUTION WIDTH 15.8 % (12.0-15.0)
[2017-04-24 04:54] LABS: ALBUMIN 2.2 g/dL (3.2-5.5); ALBUMIN/GLOBULIN RATIO 0.9 (1.0-2.2); ALKALINE PHOSPHATASE 101 IU/L (42-121); ALT ALANINE AMINOTRANSFERASE 27 IU/L (10-60); AST ASPARTATE AMINOTRANSFERASE 26 IU/L (10-42); BILIRUBIN,TOTAL 0.6 mg/dL (0.2-1.0); BUN - BLOOD UREA NITROGEN 11 mg/dL (6-20); CALCIUM 8.1 mg/dL (8.5-10.3); CARBON DIOXIDE - CO2 20 mmol/L (21-32); CHLORIDE 109 mmol/L (101-111); CREATININE 1.1 mg/dL (0.4-1.0); GFR - MDRD 53 (>89); GLUCOSE 383 mg/dL (70-100); MAGNESIUM 1.3 mg/dL (1.7-2.8); PHOSPHORUS 3.5 mg/dL (2.5-4.6); SODIUM 138 mmol/L (135-145); TOTAL PROTEIN 4.6 g/dL (6.7-8.2)
[2017-04-24 05:01] LABS: VBG PH 7.431 (7.31-7.41)
[2017-04-24] MEDS: MAGNESIUM SULFATE 2 GRAM 2 GM/50 ML BAG IV SCH ×2 (05:42→06:43)
[2017-04-24] MEDS: SODIUM CHLORIDE FLUSH 0.9% 10 ML SYRINGE IVP SCH ×3 (05:43→21:22)
[2017-04-24] MEDS ORDERED: MAGNESIUM SULFATE 2 GRAM 2 GM/50 ML BAG IV SCH (08:00)
[2017-04-24] MEDS: INSULIN ASPART 300 UNIT/3 ML PEN SUBQ SCH ×3 (08:08→21:22)
[2017-04-24] MEDS: cefTRIAXone 1 GM in SODIUM CHLORIDE 0.9% MINIBAG 100 ML IV SCH (09:32)
[2017-04-24] MEDS: MULTIVITAMIN 10 ML in SODIUM CHLORIDE 0.9% 1,000 ML IV SCH (10:13)
[2017-04-24] MEDS: THIAMINE INJ 100 MG, FOLIC ACID INJ 1 MG in SODIUM CHLORIDE 0.9% 100ML 100 ML IV SCH (10:17)
[2017-04-24] MEDS ORDERED: INSULIN ASPART 300 UNIT/3 ML PEN SUBQ SCH (12:00)
--- NOTE | 2017-04-24 18:33 | PROVIDER PROGRESS NOTE ---
Subjective - Prog Note Date Prog Note Date: 04/24/17 Prog Note Time: 18:31 - Subjective Pt reports feeling: Improved (Patient is able to communicate and make her needs known easily. She appears to be back to her baseline mentation.) Current Medications - Current Medications Current Medications: Ceftriaxone, D5W, NovoLog, Lantus, Ativan, sodium chloride, Multivitamins, thiamine, folic acid Objective - Vital Signs/Intake & Output Reviewed Vital Signs: Yes Vital Signs: Vital Signs Temp Pulse Resp BP Pulse Ox 04/24/17 17:00 36.9 C 98 123/72 04/24/17 15:56 82 13 124/71 98 Intake & Output: Intake & Output 04/21/17 04/22/17 04/23/17 04/24/17 23:59 23:59 23:59 23:59 Intake Total 4396.667 7037.867 8470.033 3663.833 Output Total 765 5500 5290 4210 Balance 3631.667 5937.827 6650.033 -546.167 - Objective General Appearance: positive: No acute distress, Alert Eyes Bilateral: positive: Normal inspection, PERRL, EOMI, No lid inflammation, Conjunctivae nml, No scleral icterus ENT: positive: ENT inspection nml, Pharynx nml, No signs of dehydration Neck: positive: Nml inspection, Thyroid nml, No JVD, Trachea midline. negative : Thyromegaly Respiratory: positive: Chest non-tender, No respiratory distress, Breath sounds nml. negative: Wheezes, Rales, Rhonchi Cardiovascular: positive: Regular rate & rhythm, No murmur, No gallop Abdomen: positive: Non-tender, No organomegaly, Nml bowel sounds, No distention. negative: Guarding, Rebound Back: positive: Nml inspection. negative: CVA tenderness (R), CVA tenderness (L ) Skin: positive: Color nml, No rash, Warm, Dry. negative: Cyanosis Extremities: positive: Non-tender, Full ROM, Nml appearance Neurologic/Psychiatric: positive: Oriented x3, CN's nml (2-12), Motor nml, Sensation nml, Mood/affect nml - Lab Results Fish Bones: 04/24/17 04:10 04/24/17 04:10 Other Labs: Lab Results x24hrs 04/24/17 04/24/17 04/24/17 Range/Units 10:00 04:10 04:10 WBC (4.8-10.8) x10^3/uL RBC (4.20-5.40) 10^6/uL Hgb (12.0-16.0) g/dL Hct (37.0-47.0) % MCV (81.0-99.0) fL MCH (27.0-31.0) pg MCHC (32.0-36.0) g/dL RDW (12.0-15.0) % Plt Count (130-450) 10^3/uL MPV (7.9-10.8) fL Neut # (1.5-6.6) 10^3/uL Lymph # (1.5-3.5) 10^3/uL [place] # (0.0-1.0) 10^3/uL Eos # (0.0-0.7) 10^3/uL Baso # (0.0-0.1) 10^3/uL Absolute Nucleated RBC x10^3/uL Nucleated RBC % /100WBC VBG pH 7.431 H (7.31-7.41) Ionized Calcium 1.14 L YES (1.15-1.33) mmol/L Sodium 138 (135-145) mmol/L Potassium 3.8 (3.5-5.0) mmol/L Chloride 109 (101-111) mmol/L Carbon Dioxide 20 L (21-32) mmol/L Anion Gap 9.0 (6-13) BUN 11 (6-20) mg/dL Creatinine 1.1 H (0.4-1.0) mg/dL Estimated GFR (MDRD) 53 L (>89) Glucose 383 H (70-100) mg/dL Glycated Hemoglobin (4.6-6.2) % Estim Average Glucose (70-100) Calcium 8.1 L (8.5-10.3) mg/dL Phosphorus 3.5 (2.5-4.6) mg/dL Magnesium 2.7 1.3 L (1.7-2.8) mg/dL Total Bilirubin 0.6 (0.2-1.0) mg/dL AST 26 (10-42) IU/L ALT 27 (10-60) IU/L Alkaline Phosphatase 101 (42-121) IU/L Total Protein 4.6 L (6.7-8.2) g/dL Albumin 2.2 L (3.2-5.5) g/dL Globulin 2.4 (2.1-4.2) g/dL Albumin/Globulin Ratio 0.9 L (1.0-2.2) 04/24/17 04/23/17 04/23/17 Range/Units 04:10 04:09 04:09 WBC 5.0 (4.8-10.8) x10^3/uL RBC 2.91 L (4.20-5.40) 10^6/uL Hgb 9.4 L (12.0-16.0) g/dL Hct 27.5 L (37.0-47.0) % MCV 94.7 (81.0-99.0) fL MCH 32.2 H (27.0-31.0) pg MCHC 34.0 (32.0-36.0) g/dL RDW 15.8 H (12.0-15.0) % Plt Count 130 (130-450) 10^3/uL MPV 7.9 (7.9-10.8) fL Neut # 3.0 (1.5-6.6) 10^3/uL Lymph # 1.4 L (1.5-3.5) 10^3/uL [place] # 0.5 (0.0-1.0) 10^3/uL Eos # 0.0 (0.0-0.7) 10^3/uL Baso # 0.0 (0.0-0.1) 10^3/uL Absolute Nucleated RBC 0.00 x10^3/uL Nucleated RBC % 0.0 /100WBC VBG pH (7.31-7.41) Ionized Calcium (1.15-1.33) mmol/L Sodium (135-145) mmol/L Potassium (3.5-5.0) mmol/L Chloride (101-111) mmol/L Carbon Dioxide (21-32) mmol/L Anion Gap (6-13) BUN (6-20) mg/dL Creatinine (0.4-1.0) mg/dL Estimated GFR (MDRD) (>89) Glucose (70-100) mg/dL Glycated Hemoglobin 13.9 H (4.6-6.2) % Estim Average Glucose 352 H (70-100) Calcium (8.5-10.3) mg/dL Phosphorus < 1.0 L* (2.5-4.6) mg/dL Magnesium (1.7-2.8) mg/dL Total Bilirubin (0.2-1.0) mg/dL AST (10-42) IU/L ALT (10-60) IU/L Alkaline Phosphatase (42-121) IU/L Total Protein (6.7-8.2) g/dL Albumin (3.2-5.5) g/dL Globulin (2.1-4.2) g/dL Albumin/Globulin Ratio (1.0-2.2) 04/23/17 Range/Units 04:09 WBC (4.8-10.8) x10^3/uL RBC (4.20-5.40) 10^6/uL Hgb (12.0-16.0) g/dL Hct (37.0-47.0) % MCV (81.0-99.0) fL MCH (27.0-31.0) pg MCHC (32.0-36.0) g/dL RDW (12.0-15.0) % Plt Count (130-450) 10^3/uL MPV (7.9-10.8) fL Neut # (1.5-6.6) 10^3/uL Lymph # (1.5-3.5) 10^3/uL [place] # (0.0-1.0) 10^3/uL Eos # (0.0-0.7) 10^3/uL Baso # (0.0-0.1) 10^3/uL Absolute Nucleated RBC x10^3/uL Nucleated RBC % /100WBC VBG pH (7.31-7.41) Ionized Calcium (1.15-1.33) mmol/L Sodium (135-145) mmol/L Potassium (3.5-5.0) mmol/L Chloride (101-111) mmol/L Carbon Dioxide (21-32) mmol/L Anion Gap (6-13) BUN (6-20) mg/dL Creatinine (0.4-1.0) mg/dL Estimated GFR (MDRD) (>89) Glucose (70-100) mg/dL Glycated Hemoglobin (4.6-6.2) % Estim Average Glucose (70-100) Calcium (8.5-10.3) mg/dL Phosphorus (2.5-4.6) mg/dL Magnesium 2.0 (1.7-2.8) mg/dL Total Bilirubin (0.2-1.0) mg/dL AST (10-42) IU/L ALT (10-60) IU/L Alkaline Phosphatase (42-121) IU/L Total Protein (6.7-8.2) g/dL Albumin (3.2-5.5) g/dL Globulin (2.1-4.2) g/dL Albumin/Globulin Ratio (1.0-2.2) Assessment/Plan - Problem List (1) Acute metabolic encephalopathy Impression: Likely related to the patient's diabetic ketoacidosis, the patient appears to be back to her baseline with regards to her mentation. She is able to make her needs known and is able to converse easily. (2) DKA (diabetic ketoacidoses) Impression: Resolved. (3) Type 2 diabetes mellitus, uncontrolled Impression: Newly diagnosed. The patient is on Lantus with a sliding scale for coverage. We will stop the D5W as her blood sugars are increasing and transfer her to the floor as she no longer has criteria for ICU admission. (4) Alcohol abuse Impression: The patient reportedly was drinking 1/5 of vodka daily.Speak with her. The patient states that she will no longer drink as she is now a diabetic. There have not been any signs of alcohol withdrawal during this admission.
[2017-04-24] MEDS ORDERED: LORazepam 0.5 MG TABLET PO PRN (19:53)
[2017-04-24] MEDS: INSULIN GLARGINE 300 UNIT/3 ML PEN SUBQ SCH (21:23)
[2017-04-25 05:21] LABS: BASOPHILS % (AUTO) 0.8 %; EOSINOPHILS # (AUTO) 0.1 10^3/uL (0.0-0.7); EOSINOPHILS % (AUTO) 1.2 %; HGB - HEMOGLOBIN 9.3 g/dL (12.0-16.0); LYMPHOCYTES # (AUTO) 1.7 10^3/uL (1.5-3.5); LYMPHOCYTES % (AUTO) 38.7 %; MEAN CORPUSCULAR HEMOGLOBIN 31.5 pg (27.0-31.0); MEAN CORPUSCULAR HGB CONC 33.3 g/dL (32.0-36.0); MEAN CORPUSCULAR VOLUME 94.6 fL (81.0-99.0); MEAN PLATELET VOLUME 7.7 fL (7.9-10.8); MONOCYTES # (AUTO) 0.4 10^3/uL (0.0-1.0); NEUTROPHILS # (AUTO) 2.2 10^3/uL (1.5-6.6); NEUTROPHILS % (AUTO) 50.3 %; PLT - PLATELET COUNT 137 10^3/uL (130-450); RED BLOOD COUNT 2.95 10^6/uL (4.20-5.40); RED CELL DISTRIBUTION WIDTH 15.9 % (12.0-15.0); WHITE BLOOD COUNT 4.5 x10^3/uL (4.8-10.8)
[2017-04-25 05:28] LABS: ALBUMIN 2.3 g/dL (3.2-5.5); ALBUMIN/GLOBULIN RATIO 0.9 (1.0-2.2); ALKALINE PHOSPHATASE 92 IU/L (42-121); ALT ALANINE AMINOTRANSFERASE 24 IU/L (10-60); AST ASPARTATE AMINOTRANSFERASE 23 IU/L (10-42); BILIRUBIN,TOTAL 0.4 mg/dL (0.2-1.0); BUN - BLOOD UREA NITROGEN 11 mg/dL (6-20); CALCIUM 8.8 mg/dL (8.5-10.3); CARBON DIOXIDE - CO2 23 mmol/L (21-32); CHLORIDE 106 mmol/L (101-111); CREATININE 0.9 mg/dL (0.4-1.0); GFR - MDRD 67 (>89); GLUCOSE 67 mg/dL (70-100); MAGNESIUM 1.9 mg/dL (1.7-2.8); PHOSPHORUS 3.2 mg/dL (2.5-4.6); SODIUM 140 mmol/L (135-145); TOTAL PROTEIN 4.9 g/dL (6.7-8.2)
[2017-04-25] MEDS ORDERED: POTASSIUM CHLORIDE 20 MEQ TABLET PO SCH (05:51)
[2017-04-25] MEDS ORDERED: POTASSIUM CHLOR 10 MEQ/100 ML 10 MEQ/100 ML BAG IV SCH (05:52)
[2017-04-25] MEDS: SODIUM CHLORIDE FLUSH 0.9% 10 ML SYRINGE IVP SCH ×3 (06:50→22:42)
[2017-04-25] MEDS: SODIUM CHLORIDE FLUSH 0.9% 10 ML SYRINGE IVP PRN (06:50)
[2017-04-25] MEDS ORDERED: POTASSIUM CHLOR 20 MEQ/100 ML 20 MEQ/100 ML BAG IV SCH (07:00)
[2017-04-25] MEDS: INSULIN ASPART 300 UNIT/3 ML PEN SUBQ SCH ×4 (08:29→22:41)
[2017-04-25] MEDS: MULTIVITAMIN 10 ML in SODIUM CHLORIDE 0.9% 1,000 ML IV SCH (08:30)
[2017-04-25] MEDS: cefTRIAXone 1 GM in SODIUM CHLORIDE 0.9% MINIBAG 100 ML IV SCH (08:30)
[2017-04-25] MEDS: THIAMINE INJ 100 MG, FOLIC ACID INJ 1 MG in SODIUM CHLORIDE 0.9% 100ML 100 ML IV SCH (08:30)
--- NOTE | 2017-04-25 08:51 | PROVIDER PROGRESS NOTE ---
Subjective - Prog Note Date Prog Note Date: 04/25/17 Prog Note Time: 08:48 - Subjective Pt reports feeling: Improved Subjective: I last saw her 04/23 and between then and now she is back to baseline and even better than what she usually is. Her best friend and daughter are at the bedside and they feel she is so good right now. They postulate alcohol in the outpt setting was affecting her cognitively as well. Now that no alcohol and glucose controlled, she is so much more lucid and thinking more clearly. no abd pain eating breakfast had hypoglcyemia this am Objective - Vital Signs/Intake & Output Vital Signs: Vital Signs x48h Temp Pulse Resp BP Pulse Ox 04/25/17 08:22 37.2 C 109 H 18 118/98 H 98 Intake & Output: Intake & Output 04/22/17 04/23/17 04/24/17 04/25/17 23:59 23:59 23:59 23:59 Intake Total 7037.867 8470.033 5253.833 200 Output Total 5500 5290 4660 Balance 3910.517 4808.033 593.833 200 - Lab Results Fish Bones: 04/25/17 04:56 04/25/17 04:56 Other Labs: Lab Results x24hrs 04/25/17 04/25/17 04/24/17 Range/Units 04:56 04:56 18:40 WBC 4.5 L (4.8-10.8) x10^3/uL RBC 2.95 L (4.20-5.40) 10^6/uL Hgb 9.3 L (12.0-16.0) g/dL Hct 27.9 L (37.0-47.0) % MCV 94.6 (81.0-99.0) fL MCH 31.5 H (27.0-31.0) pg MCHC 33.3 (32.0-36.0) g/dL RDW 15.9 H (12.0-15.0) % Plt Count 137 (130-450) 10^3/uL MPV 7.7 L (7.9-10.8) fL Neut # 2.2 (1.5-6.6) 10^3/uL Lymph # 1.7 (1.5-3.5) 10^3/uL [place] # 0.4 (0.0-1.0) 10^3/uL Eos # 0.1 (0.0-0.7) 10^3/uL Baso # 0.0 (0.0-0.1) 10^3/uL Absolute Nucleated RBC 0.00 x10^3/uL Nucleated RBC % 0.0 /100WBC Sodium 140 (135-145) mmol/L Potassium 2.8 L (3.5-5.0) mmol/L Chloride 106 (101-111) mmol/L Carbon Dioxide 23 (21-32) mmol/L Anion Gap 11.0 (6-13) BUN 11 (6-20) mg/dL Creatinine 0.9 (0.4-1.0) mg/dL Estimated GFR (MDRD) 67 L (>89) Glucose 67 L (70-100) mg/dL Calcium 8.8 (8.5-10.3) mg/dL Ionized Calcium NO Phosphorus 3.2 (2.5-4.6) mg/dL Magnesium 1.9 2.2 (1.7-2.8) mg/dL Total Bilirubin 0.4 (0.2-1.0) mg/dL AST 23 (10-42) IU/L ALT 24 (10-60) IU/L Alkaline Phosphatase 92 (42-121) IU/L Total Protein 4.9 L (6.7-8.2) g/dL Albumin 2.3 L (3.2-5.5) g/dL Globulin 2.6 (2.1-4.2) g/dL Albumin/Globulin Ratio 0.9 L (1.0-2.2) 04/24/17 Range/Units 10:00 WBC (4.8-10.8) x10^3/uL RBC (4.20-5.40) 10^6/uL Hgb (12.0-16.0) g/dL Hct (37.0-47.0) % MCV (81.0-99.0) fL MCH (27.0-31.0) pg MCHC (32.0-36.0) g/dL RDW (12.0-15.0) % Plt Count (130-450) 10^3/uL MPV (7.9-10.8) fL Neut # (1.5-6.6) 10^3/uL Lymph # (1.5-3.5) 10^3/uL [place] # (0.0-1.0) 10^3/uL Eos # (0.0-0.7) 10^3/uL Baso # (0.0-0.1) 10^3/uL Absolute Nucleated RBC x10^3/uL Nucleated RBC % /100WBC Sodium (135-145) mmol/L Potassium (3.5-5.0) mmol/L Chloride (101-111) mmol/L Carbon Dioxide (21-32) mmol/L Anion Gap (6-13) BUN (6-20) mg/dL Creatinine (0.4-1.0) mg/dL Estimated GFR (MDRD) (>89) Glucose (70-100) mg/dL Calcium (8.5-10.3) mg/dL Ionized Calcium Phosphorus (2.5-4.6) mg/dL Magnesium 2.7 (1.7-2.8) mg/dL Total Bilirubin (0.2-1.0) mg/dL AST (10-42) IU/L ALT (10-60) IU/L Alkaline Phosphatase (42-121) IU/L Total Protein (6.7-8.2) g/dL Albumin (3.2-5.5) g/dL Globulin (2.1-4.2) g/dL Albumin/Globulin Ratio (1.0-2.2) Assessment/Plan - Problem List (1) Acute metabolic encephalopathy Impression: Resolved. from DKA, dehydration and I wonder if there was any hypoxia while down bc she did not wake up very quickly. her labs and vital signs normalized by 04/22/17. Urine tox screen negative. CT of head was going to be ordered if not back to baseline but became more awake and more aware by 04/23. Friend and daughter feel she already had cognitive changes in the last year so what I am seeing is slightly worse but not surprising. CT head not ordered. (2) DKA (diabetic ketoacidoses) Impression: new diagnosis suspect chronic pancreatitis resolved. Qualifiers: Diabetes mellitus type: type 2 Diabetes mellitus complication detail: with coma Qualified Code(s): E11.11 - Type 2 diabetes mellitus with ketoacidosis with coma (3) Type 2 diabetes mellitus, uncontrolled Impression: new diagnosis for her. I was waiting for her to become more alert to begin education. Able to give herself insulin and able to feel the hypoglycemia from this morning. Plan for dc tomorrow am. Lantus 20 is in the evening. consider changing to morning since she is hypoglycemic in the morning. Diabetes mellitus complication status: with unspecified complications (4) Alcohol abuse Impression: on going bannana bag and CIWA protocol. So far no benzo's needed. Abuse may have affected cognition and this latest illness has made it worse. Social Service Consult ordered and family will speak to her today. Will stop IV vitamins and change to po.
[2017-04-25] MEDS: POTASSIUM CHLORIDE 20 MEQ TABLET PO SCH (13:48)
[2017-04-25] MEDS: INSULIN GLARGINE 300 UNIT/3 ML PEN SUBQ SCH (13:48)
[2017-04-26] MEDS: SODIUM CHLORIDE FLUSH 0.9% 10 ML SYRINGE IVP SCH (05:06)
[2017-04-26] MEDS: SODIUM CHLORIDE FLUSH 0.9% 10 ML SYRINGE IVP PRN (05:06)
[2017-04-26 05:29] LABS: ALBUMIN 2.5 g/dL (3.2-5.5); ALBUMIN/GLOBULIN RATIO 0.9 (1.0-2.2); ALKALINE PHOSPHATASE 100 IU/L (42-121); ALT ALANINE AMINOTRANSFERASE 23 IU/L (10-60); AST ASPARTATE AMINOTRANSFERASE 25 IU/L (10-42); BILIRUBIN,TOTAL 0.5 mg/dL (0.2-1.0); BUN - BLOOD UREA NITROGEN 10 mg/dL (6-20); CALCIUM 9.1 mg/dL (8.5-10.3); CARBON DIOXIDE - CO2 22 mmol/L (21-32); CHLORIDE 108 mmol/L (101-111); CREATININE 0.7 mg/dL (0.4-1.0); GFR - MDRD 89 (>89); GLUCOSE 88 mg/dL (70-100); MAGNESIUM 1.6 mg/dL (1.7-2.8); SODIUM 139 mmol/L (135-145); TOTAL PROTEIN 5.3 g/dL (6.7-8.2)
[2017-04-26] MEDS: POTASSIUM CHLORIDE 20 MEQ TABLET PO SCH (08:27)
[2017-04-26] MEDS: INSULIN GLARGINE 300 UNIT/3 ML PEN SUBQ SCH (08:32)
[2017-04-26] MEDS: INSULIN ASPART 300 UNIT/3 ML PEN SUBQ SCH (08:34)
[2017-04-26] MEDS: cefTRIAXone 1 GM in SODIUM CHLORIDE 0.9% MINIBAG 100 ML IV SCH (08:35)
[2017-04-26] MEDS ORDERED: ACETAMINOPHEN 325 MG TABLET PO PRN (10:17)
--- NOTE | 2017-04-26 10:28 | Discharge Plan ---
Discharge Plan Disposition: Home, Self Care Condition: Good Prescriptions: Blood Sugar Diagnostic [Glucometer Strips] 1 each QID #120 strip Blood-Glucose Meter [Glucometer] 1 each MC DAILY #1 each Insulin Aspart [Novolog Flexpen] 100 unit SQ TIDWM #3 insuln.pen Insulin Glargine [Lantus Solostar] 20 unit SQ DAILY #3 pen Lancets 1 each MC QID #120 each [place], Disposable [Needle] 1 each QID #120 dis.needle Diet: Diabetic Activity Restrictions: No Restrictions Shower Restrictions: No Driving Restrictions: No Weight Bearing: Full Weight Additional Instructions or Follow Up instructions: Stop drinking alcohol. If you need help look for an Alcoholics Anonymous group. No Smoking: If you smoke, Please STOP! Call for help.
--- NOTE | 2017-04-26 10:33 | DISCHARGE SUMMARY ---
Discharge Summary Admit Date: 04/21/17 Discharge Date: 04/26/17 Discharging Provider: Klaudia Rich DO Primary Care Provider: None Condition at Discharge: Good Discharge Disposition: 01 Home, Self Care - DIAGNOSES Admission Diagnoses: 1) Acute metabolic encephalopathy 2) Diabetic ketoacidosis 3) Type 2 diabetes mellitus 4) Alcohol abuse Discharge Diagnoses with Status of Each Condition: 1) Acute metabolic encephalopathy- resolved. Friends and family note that this is the clearest mentation she has had for several years. 2) Diabetic ketoacidosis- resolved. 3) Type 2 diabetes mellitus- new onset, pt is being discharged on insulin. She will need to find a PCP for refills and ongoing monitoring. 4) Alcohol abuse- Pt states that she has quit drinking alcohol. I have advised her to seek out Alcoholics Anonymous if she has difficulty with sobriety. - HPI History of Present Illness: From Dr. Cerda's note: Ms. Ros Daigle is a 46-year-old female who has been living on [facility] for about 4 years and does not have a primary care provider. The patient had pancreatitis about 8 years ago and was hospitalized at [facility] with probable alcoholic pancreatitis. There is no other medical major medical issues and she continues to drink, reportedly up to 1/5 of vodka daily. She was brought to the emergency department very minimally responsive and was found to be in diabetic ketoacidosis. - HOSPITAL COURSE Hospital Course: Ms. Ros Daigle is a 46-year-old female who has been living on [facility] for about 4 years and does not have a primary care provider. The patient had pancreatitis about 8 years ago and was hospitalized at [facility] with probable alcoholic pancreatitis. There is no other medical major medical issues and she continues to drink, reportedly up to 1/5 of vodka daily. She was brought to the emergency department very minimally responsive and was found to be in diabetic ketoacidosis.She was admitted to the intensive care unit and placed on insulin drip. Her diabetic ketoacidosis resolved after about 2 days and the next day her mentation began to improve. She was transferred out of the unit Tuesday, and has done well enough to be discharged today. - ALLERGIES Allergies/Adverse Reactions: Allergies Allergy/AdvReac Type Severity Reaction Status Date / Time No Known Drug Allergies Allergy Verified 04/26/17 02:10 - MEDICATIONS Home Medications: Ambulatory Orders Medication Instructions Recorded Confirmed Blood Sugar Diagnostic [Glucometer 1 each QID #120 strip 04/25/17 Strips] Blood-Glucose Meter [Glucometer] 1 each DAILY #1 each 04/25/17 Insulin Aspart [Novolog Flexpen] 100 unit SQ TIDWM #3 insuln.pen 04/25/17 Insulin Glargine [Lantus Solostar] 20 unit SQ DAILY #3 pen 04/25/17 Lancets 1 each QID #120 each 04/25/17 [place], Disposable [Needle] 1 each QID #120 dis.needle 04/25/17 - PHYSICAL EXAM AT DISCHARGE General Appearance: positive: No acute distress, Alert Eyes Bilateral: positive: Normal inspection, PERRL, EOMI, No lid inflammation, Conjunctivae nml, No scleral icterus ENT: positive: ENT inspection nml, Pharynx nml, No signs of dehydration. negative: Oral lesions Neck: positive: Nml inspection, Thyroid nml, No JVD, Trachea midline. negative : Thyromegaly Respiratory: positive: Chest non-tender, No respiratory distress, Breath sounds nml. negative: Wheezes, Rales, Rhonchi Cardiovascular: positive: Regular rate & rhythm, No murmur, No gallop Peripheral Pulses: positive: 1+ Abdomen: positive: Non-tender, No organomegaly, Nml bowel sounds, No distention Back: positive: Nml inspection. negative: CVA tenderness (R), CVA tenderness (L ) Skin: positive: Color nml, No rash, Warm, Dry. negative: Cyanosis Extremities: positive: Non-tender, Full ROM, Nml appearance Neurologic/Psychiatric: positive: Oriented x3, CN's nml (2-12), Motor nml, Sensation nml, Mood/affect nml - LABS Result Diagrams: 04/25/17 04:56 04/26/17 05:07 - FOLLOW UP Follow Up: With a primary care physician this week. - TIME SPENT Time Spent in Discharge (Minutes): 40
[2017-04-26 11:18] VITALS: BP 113/85
== END 2017-04-26 11:30 | disposition home or self-care (01) | DRG 637 ==
LOC: EDUNIT# → ED 11:21 → ICU 12:58 → MS2 04-24 19:07
PROVIDERS: ADMIT Specialist; ATTEND Hospitalist
DX: E11.11 Type 2 diabetes mellitus with ketoacidosis with coma (principal); G93.41 Metabolic encephalopathy; E87.1 Hypo-osmolality and hyponatremia; F10.10 Alcohol abuse, uncomplicated; I95.9 Hypotension, unspecified; E86.0 Dehydration; F17.200 Nicotine dependence, unspecified, uncomplicated; Z87.19 Personal history of other diseases of the digestive system
CPT/HCPCS: 36415; 51702; 80048; 80053; 80306; 80307; 80320; 80329; 81001; 81003; 81025; 82009; 82150; 82330; 82803; 82947; 83036; 83605; 83690; 83735; 84100; 84484; 85025; 85610; 87086; 87150; 93005; 96361; 96365; 99285; 99291

== ENCOUNTER 2017-04-28 09:13 | Emergency (ER) | payer MEDICAID ==
[2017-04-28 09:26] VITALS: BP 124/68
--- NOTE | 2017-04-28 09:47 | ED Physician Documentation ---
History of Present Illness - Stated complaint Stated Complaint: MEDICATION - Chief complaint Chief Complaint: General - History obtained from History obtained from: Patient, Family - History of Present Illness Timing: Today Pain level max: 0 Pain level now: 0 - Additonal information Additional information: Patient was recently diagnosed with DKA and new onset diabetes. She was discharged on insulin, Lantus 20units SQ q AM and novolin 100mg SQ TIDWM. This was corrected with a paper rx to a sliding scale, correction supposed to be 2, 4 , 6, 8 units SQ, but reported as 20, 40, 60, 80 units SQ. Has been hypoglycemic at home. Has stopped any alcohol use since being discharged and quit smoking as well. Came in as she is switching insurances and doesn't see her new PCP for 2 weeks. 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 - Present Medications Home Medications: Ambulatory Orders Medication Instructions Recorded Confirmed Blood Sugar Diagnostic [Glucometer 1 each QID #120 strip 04/25/17 Strips] Blood-Glucose Meter [Glucometer] 1 each DAILY #1 each 04/25/17 Insulin Aspart [Novolog Flexpen] 100 unit SQ TIDWM #3 insuln.pen 04/25/17 Insulin Glargine [Lantus Solostar] 20 unit SQ DAILY #3 pen 04/25/17 Lancets 1 each QID #120 each 04/25/17 [place], Disposable [Needle] 1 each QID #120 dis.needle 04/25/17 - Allergies Allergies/Adverse Reactions: Allergies Allergy/AdvReac Type Severity Reaction Status Date / Time No Known Drug Allergies Allergy Verified 04/26/17 02:10 - Social History Does the pt smoke?: No Smoking Status: Never smoker Does the pt drink ETOH?: No Does the pt have substance abuse?: No PD ED PE NORMAL - Vitals Vital signs reviewed: Yes - General General: Alert and oriented X 3, No acute distress - HEENT HEENT: Moist mucous membranes - Neck Neck: Supple, no meningeal sign - Cardiac Cardiac: RRR, Strong equal pulses - Respiratory Respiratory: No respiratory distress, Clear bilaterally - Abdomen Abdomen: Soft, Non tender, Non distended - Derm Derm: Warm and dry, No rash - Extremities Extremities: No edema - Neuro Neuro: Alert and oriented X 3 Results - Vitals Vitals: Vital Signs - 24 hr 04/28/17 09:17 Temperature 36.0 C L Heart Rate 102 H Respiratory 18 Rate Blood Pressure 124/68 O2 Saturation 99 Oxygen O2 Source Room air - Labs Labs: Laboratory Tests 04/28/17 09:45 POC Whole Bld Glucose 196 H PD MEDICAL DECISION MAKING - ED course Complexity details: reviewed old records, reviewed results, considered differential, d/w patient, d/w family, d/w financial planning consultant (Alana Roseitian) ED course: Patient is a 46-year-old female who presents to the emergency department with difficulties with an insulin prescription. Will have her stop her corrections as she has completely changed her diet and will just start her on the Lantus, 15 units subcu in the a.m. Will have her check her blood sugar twice a day and follow-up with her doctor in 2 weeks as scheduled. This will allow them to adjust her medications in the office. Patient and family counseled regarding signs and symptoms for which I believe and urgent re-evaluation would be necessary. Patient with good understanding of and agreement to plan and is comfortable going home at this time This document was made in part using voice recognition software. While efforts are made to proofread this document, sound alike and grammatical errors may occur. Departure - Departure Disposition: 01 Home, Self Care Clinical Impression: Type 2 diabetes mellitus, uncontrolled Qualifiers: Diabetes mellitus complication status: without complication Diabetes mellitus fci insulin use: with fci use Qualified Code(s): E11.65 - Type 2 diabetes mellitus with hyperglycemia Condition: Good Instructions: ED Diabetes General Info Follow-Up: CRISTIANO BOOKER [Physician No Access] - (as scheduled) Comments: Please stop any corrective insulin and just take the lantus 15 units in the morning. Take your blood sugar twice a day and keep a log for your doctor. Return if you worsen. Discharge Date/Time: 04/28/17 10:06
== END 2017-04-28 10:06 | disposition home or self-care (01) ==
LOC: ED 09:13
DX: E11.65 Type 2 diabetes mellitus with hyperglycemia (principal); Z79.4 Long term (current) use of insulin
CPT/HCPCS: 99283

== ENCOUNTER 2022-03-19 17:53 | Outpatient (CLI) | payer MEDICAID | END 2022-03-19 17:54 | disposition critical access hospital (66) | LOC: EMS 17:53 | DX: R06.02 Shortness of breath (principal); R05.9 Cough, unspecified; R42 Dizziness and giddiness; K59.00 Constipation, unspecified; R35.0 Frequency of micturition; R68.2 Dry mouth, unspecified; E11.65 Type 2 diabetes mellitus with hyperglycemia; Z79.4 Long term (current) use of insulin; R00.0 Tachycardia, unspecified | CPT/HCPCS: A0425; A0427; A0999 ==

== ENCOUNTER 2022-03-19 18:20 | Observation (INO) | payer MEDICAID ==
[2022-03-19] MEDS ORDERED: SODIUM CHLORIDE 0.9% 1,000 ML IV STA (18:48)
--- NOTE | 2022-03-19 18:58 | ED Physician Documentation ---
History of Present Illness - Stated complaint Stated Complaint: SOA - Chief complaint Chief Complaint: Resp - History obtained from History obtained from: Patient - Additonal information Additional information: 51-year-old woman with history of DKA, type 2 diabetes has been sick since yesterday. She developed a headache and subsequently forgot to take her insulin last night. Today she is feeling sicker, appeared very dizzy and short of breath with dry mouth. Brought in by ambulance with blood sugar in the high 400s. 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: Tubal ligation - Present Medications Home Medications: Ambulatory Orders Medication Instructions Recorded Confirmed Blood Sugar Diagnostic [Glucometer 1 each QID #120 strip 04/25/17 06/24/17 Strips] Blood-Glucose Meter [Glucometer] 1 each DAILY #1 each 04/25/17 06/24/17 Lancets 1 each QID #120 each 04/25/17 06/24/17 [place], Disposable [Needle] 1 each QID #120 dis.needle 04/25/17 06/24/17 Ascorbic Acid [Vitamin C] 1,000 mg PO DAILY 06/24/17 06/24/17 Biotin 1,000 mcg PO DAILY 06/24/17 06/24/17 Insulin Glargine [Lantus Solostar] 12 unit SQ DAILY 06/24/17 06/24/17 Insulin Regular Human [NovoLIN R] 2 unit SUBQ TIDWM 06/24/17 06/24/17 Vitamin E (Dl,Tocopheryl Acet) 1,000 unit PO DAILY 06/24/17 06/24/17 [Vitamin E] - Allergies Allergies/Adverse Reactions: Allergies Allergy/AdvReac Type Severity Reaction Status Date / Time No Known Drug Allergies Allergy Verified 04/26/17 02:10 - Social History Does the pt smoke?: No Smoking Status: Former smoker Does the pt drink ETOH?: No Does the pt have substance abuse?: No PD ED PE NORMAL - Vitals Vital signs reviewed: Yes - General General: Alert and oriented X 3, 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) - HEENT HEENT: Other (Dry mucous membranes) - Neck Neck: Supple, no meningeal sign, No bony TTP - Cardiac Cardiac: Other (Tachycardic but regular without murmur) - Respiratory Respiratory: Other (Tachypneic deep breathing without abnormal auscultation) - Abdomen Abdomen: Non tender - Back Back: No CVA TTP, No spinal TTP - Derm Derm: Normal color, Warm and dry - Extremities Extremities: No edema, No calf tenderness / cord - Neuro Neuro: Alert and oriented X 3, Normal speech Eye Opening: To Voice Motor: Obeys Commands Verbal: Oriented GCS Score: 14 Results - Vitals Vitals: Vital Signs - 24 hr 03/19/22 18:39 Temperature 35.6 C L Heart Rate 123 H Respiratory 26 H Rate Blood Pressure 112/76 O2 Saturation 100 Oxygen O2 Source Room air - Labs Labs: Laboratory Tests 03/19/22 03/19/22 03/19/22 18:50 18:50 18:50 WBC 18.0 H RBC 3.16 L Hgb 10.2 L Hct 34.8 L MCV 110.1 H MCH 32.3 H MCHC 29.3 L RDW 13.6 Plt Count 369 MPV 9.6 Neut # (Auto) Not Reportable Lymph # (Auto) Not Reportable [place] # (Auto) Not Reportable Eos # (Auto) Not Reportable Baso # (Auto) Not Reportable Absolute Nucleated RBC Not Reportable Total Counted 100 Band Neuts % (Manual) 8 Abnorm Lymph % (Manual) 0 Myelocytes % 2 H Nucleated RBC % Not Reportable Neutrophils # (Manual) 16.0 H Lymphocytes # (Manual) 1.1 L Monocytes # (Manual) 0.5 Eosinophils # (Manual) 0.0 Basophils # (Manual) 0.0 Differential Comment MANUAL DIFFERENTIAL WBC Morphology 2+ TOXIC GRANULATION Platelet Estimate NORMAL (130-450,000) Platelet Morphology NORMAL APPEARANCE RBC Morph Micro Appear 2+ MACROCYTOSIS VBG pH 6.804 L VBG pCO2 19.1 L VBG pO2 57.8 H VBG HCO3 2.9 L VBG Total CO2 3.5 L VBG O2 Saturation 83.1 H VBG Base Excess -30.4 L Sodium 129 L Potassium 4.8 Chloride 97 L Carbon Dioxide < 6 L* Anion Gap 29.0 H BUN 24 H Creatinine 1.2 H Estimated GFR (MDRD) 47 L Glucose 520 H* Calcium 9.0 Phosphorus 4.3 Magnesium 2.2 Total Bilirubin 2.3 H AST 18 ALT 14 Alkaline Phosphatase 131 H Total Protein 7.9 Albumin 3.4 Globulin 4.5 H Albumin/Globulin Ratio 0.8 L Lipase 80 H Urine Color Urine Clarity Urine pH Ur Specific [place] Urine Protein Urine Glucose (UA) Urine Ketones Urine Occult Blood Urine Nitrite Urine Bilirubin Urine Urobilinogen Ur Leukocyte Esterase Ur Microscopic Review Urine Culture Comments Urine HCG, Qual Nasal Adenovirus (PCR) Nasal B. parapertussis DNA (PCR) Nasal Coronavir 229E PCR Nasal Coronavir HKU1 PCR Nasal Coronavir NL63 PCR Nasal Coronavir OC43 PCR Nasal Enterovir/Rhinovir PCR Nasal Influenza B PCR Nasal Influenza A PCR Nasal Parainfluen 1 PCR Nasal Parainfluen 2 PCR Nasal Parainfluen 3 PCR Nasal Parainfluen 4 PCR Nasal RSV (PCR) Nasal B.pertussis DNA PCR Nasal C.pneumoniae (PCR) Gadiel Human Metapneumo PCR Nasal M.pneumoniae (PCR) Nasal SARS-CoV-2 (PCR) Ethyl Alcohol < 5.0 Serum Ketones LARGE H 03/19/22 03/19/22 03/19/22 19:11 19:54 19:54 WBC RBC Hgb Hct MCV MCH MCHC RDW Plt Count MPV Neut # (Auto) Lymph # (Auto) [place] # (Auto) Eos # (Auto) Baso # (Auto) Absolute Nucleated RBC Total Counted Band Neuts % (Manual) Abnorm Lymph % (Manual) Myelocytes % Nucleated RBC % Neutrophils # (Manual) Lymphocytes # (Manual) Monocytes # (Manual) Eosinophils # (Manual) Basophils # (Manual) Differential Comment WBC Morphology Platelet Estimate Platelet Morphology RBC Morph Micro Appear VBG pH 6.803 L VBG pCO2 17.1 L VBG pO2 66.9 H VBG HCO3 2.6 L VBG Total CO2 3.1 L VBG O2 Saturation 88.0 H VBG Base Excess -30.8 L Sodium 131 L Potassium 4.6 Chloride 98 L Carbon Dioxide < 6 L* Anion Gap 27.0 H BUN 24 H Creatinine 1.3 H Estimated GFR (MDRD) 43 L Glucose 527 H* Calcium 9.0 Phosphorus Magnesium 2.1 Total Bilirubin AST ALT Alkaline Phosphatase Total Protein Albumin Globulin Albumin/Globulin Ratio Lipase Urine Color Urine Clarity Urine pH Ur Specific [place] Urine Protein Urine Glucose (UA) Urine Ketones Urine Occult Blood Urine Nitrite Urine Bilirubin Urine Urobilinogen Ur Leukocyte Esterase Ur Microscopic Review Urine Culture Comments Urine HCG, Qual Nasal Adenovirus (PCR) NOT DETECTED Nasal B. parapertussis DNA (PCR) NOT DETECTED Nasal Coronavir 229E PCR NOT DETECTED Nasal Coronavir HKU1 PCR NOT DETECTED Nasal Coronavir NL63 PCR NOT DETECTED Nasal Coronavir OC43 PCR NOT DETECTED Nasal Enterovir/Rhinovir PCR NOT DETECTED Nasal Influenza B PCR NOT DETECTED Nasal Influenza A PCR NOT DETECTED Nasal Parainfluen 1 PCR NOT DETECTED Nasal Parainfluen 2 PCR NOT DETECTED Nasal Parainfluen 3 PCR NOT DETECTED Nasal Parainfluen 4 PCR NOT DETECTED Nasal RSV (PCR) NOT DETECTED Nasal B.pertussis DNA PCR NOT DETECTED Nasal C.pneumoniae (PCR) NOT DETECTED Gadiel Human Metapneumo PCR NOT DETECTED Nasal M.pneumoniae (PCR) NOT DETECTED Nasal SARS-CoV-2 (PCR) NOT DETECTED Ethyl Alcohol Serum Ketones 03/19/22 21:24 WBC RBC Hgb Hct MCV MCH MCHC RDW Plt Count MPV Neut # (Auto) Lymph # (Auto) [place] # (Auto) Eos # (Auto) Baso # (Auto) Absolute Nucleated RBC Total Counted Band Neuts % (Manual) Abnorm Lymph % (Manual) Myelocytes % Nucleated RBC % Neutrophils # (Manual) Lymphocytes # (Manual) Monocytes # (Manual) Eosinophils # (Manual) Basophils # (Manual) Differential Comment WBC Morphology Platelet Estimate Platelet Morphology RBC Morph Micro Appear VBG pH VBG pCO2 VBG pO2 VBG HCO3 VBG Total CO2 VBG O2 Saturation VBG Base Excess Sodium Potassium Chloride Carbon Dioxide Anion Gap BUN Creatinine Estimated GFR (MDRD) Glucose Calcium Phosphorus Magnesium Total Bilirubin AST ALT Alkaline Phosphatase Total Protein Albumin Globulin Albumin/Globulin Ratio Lipase Urine Color YELLOW Urine Clarity HAZY Urine pH 6.0 Ur Specific [place] 1.025 Urine Protein 30 H Urine Glucose (UA) >=1000 H Urine Ketones >=80 H Urine Occult Blood MODERATE H Urine Nitrite NEGATIVE Urine Bilirubin NEGATIVE Urine Urobilinogen 0.2 (NORMAL) Ur Leukocyte Esterase NEGATIVE Ur Microscopic Review INDICATED Urine Culture Comments Not Reportable Urine HCG, Qual NEGATIVE Nasal Adenovirus (PCR) Nasal B. parapertussis DNA (PCR) Nasal Coronavir 229E PCR Nasal Coronavir HKU1 PCR Nasal Coronavir NL63 PCR Nasal Coronavir OC43 PCR Nasal Enterovir/Rhinovir PCR Nasal Influenza B PCR Nasal Influenza A PCR Nasal Parainfluen 1 PCR Nasal Parainfluen 2 PCR Nasal Parainfluen 3 PCR Nasal Parainfluen 4 PCR Nasal RSV (PCR) Nasal B.pertussis DNA PCR Nasal C.pneumoniae (PCR) Gadiel Human Metapneumo PCR Nasal M.pneumoniae (PCR) Nasal SARS-CoV-2 (PCR) Ethyl Alcohol Serum Ketones PD Medical Decision Making - ED course ED course: 51-year-old woman presents with looking like she is in DKA, corroborated on labs with venous pH of 7.8, bicarb of less than 6, anion gap of 29, pseudohyponatremia, and elevated blood glucose at 520. Electrolytes initially unremarkable. She is started on IV fluid resuscitation and an insulin drip. The decision to admit was made at approximately 7:25 PM on March 19. There are no beds available in the ICU and she will be boarding in the emergency department pending bed availability or improvement. Care to overnight emergency physician at shift change. - Critical Care Time(min): 45 Time Includes: Direct patient care, Review records, Reassess patient, Document care, Coordinate care Data interpretation: Labs, Pulse ox Procedures included in critical care time: Peripheral IV Departure - Departure Disposition: 66 [facility] DC/Xfer Clinical Impression: DKA (diabetic ketoacidoses) Condition: Critical
[2022-03-19 19:01] LABS: BASOPHILS % (AUTO) 0.3 %; MONOCYTES % (AUTO) 5.3 %; RED CELL DISTRIBUTION WIDTH 13.6 % (12.0-15.0)
[2022-03-19 19:04] LABS: EOSINOPHILS % (AUTO) 0.1 %; HCT - HEMATOCRIT 34.8 % (37.0-47.0); HGB - HEMOGLOBIN 10.2 g/dL (12.0-16.0); LYMPHOCYTES % (AUTO) 7.1 %; MEAN CORPUSCULAR HEMOGLOBIN 32.3 pg (27.0-31.0); MEAN CORPUSCULAR HGB CONC 29.3 g/dL (32.0-36.0); MEAN CORPUSCULAR VOLUME 110.1 fL (81.0-99.0); MEAN PLATELET VOLUME 9.6 fL (7.9-10.8); NEUTROPHILS % (AUTO) 85.3 %; PLT - PLATELET COUNT 369 10^3/uL (130-450); RED BLOOD COUNT 3.16 10^6/uL (4.20-5.40)
[2022-03-19 19:07] LABS: ABNORMAL LYMPHS % (MANUAL) 0 %; VBG BASE EXCESS -30.4 mmol/L (-2 - +2); VBG HCO3 2.9 mmol/L (23-28); VBG OXYGEN SATURATION 83.1 % (60-80); VBG PCO2 19.1 mmHg (41-51); VBG PO2 57.8 mmHg (25-47); VBG TOTAL CO2 3.5 mmol/L (24-29)
[2022-03-19 19:09] LABS: KETONES, SERUM (ACETEST) LARGE (NEGATIVE); VBG PH 6.804 (7.31-7.41)
[2022-03-19 19:18] LABS: ALBUMIN 3.4 g/dL (3.2-5.5); ALBUMIN/GLOBULIN RATIO 0.8 (1.0-2.2); ALKALINE PHOSPHATASE 131 IU/L (42-121); ALT ALANINE AMINOTRANSFERASE 14 IU/L (10-60); AST ASPARTATE AMINOTRANSFERASE 18 IU/L (10-42); BILIRUBIN,TOTAL 2.3 mg/dL (0.2-1.0); BUN - BLOOD UREA NITROGEN 24 mg/dL (6-20); CHLORIDE 97 mmol/L (101-111); CREATININE 1.2 mg/dL (0.4-1.0); ETOH - ETHANOL < 5.0 mg/dL; GFR - MDRD 47 (>89); LIPASE 80 U/L (22-51); MAGNESIUM 2.2 mg/dL (1.7-2.8); PHOSPHORUS 4.3 mg/dL (2.5-4.6); POTASSIUM 4.8 mmol/L (3.5-5.0); SODIUM 129 mmol/L (135-145); TOTAL PROTEIN 7.9 g/dL (6.7-8.2)
[2022-03-19] MEDS ORDERED: ONDANSETRON 4 MG/2 ML VIAL IVP STA (19:22)
[2022-03-19 19:24] LABS: CARBON DIOXIDE - CO2 < 6 mmol/L (21-32); GLUCOSE 520 mg/dL (70-100)
[2022-03-19] MEDS ORDERED: ONDANSETRON 4 MG/2 ML VIAL IVP PRN (19:25)
[2022-03-19] MEDS ORDERED: ACETAMINOPHEN 500 MG TABLET PO PRN (19:25)
[2022-03-19] MEDS ORDERED: INSULIN REGULAR HUMAN 100 UNIT/1 ML 10 ML MDV ONE (19:43)
[2022-03-19] MEDS ORDERED: NS W/20 MEQ KCL 1,000 ML IV STA (19:47)
[2022-03-19 19:52] LABS: BAND NEUTROPHILS % (MANUAL) 8 %; LYMPHOCYTES # (MANUAL) 1.1 10^3/uL (1.5-3.5); LYMPHOCYTES % (MANUAL) 6 %; MONOCYTES # (MANUAL) 0.5 10^3/uL (0.0-1.0); MYELOCYTES % (MANUAL) 2 %
[2022-03-19 19:53] LABS: DIFFERENTIAL COMMENT MANUAL DIFFERENTIAL; PLATELET ESTIMATE, MANUAL NORMAL (130-450,000) (NORMAL); PLATELET MORPHOLOGY NORMAL APPEARANCE (NORMAL); RBC MORPHOLOGY (MULTIPLE) 2+ MACROCYTOSIS (NORMAL); WBC MORPHOLOGY (MULTIPLE) 2+ TOXIC GRANULATION (NORMAL)
[2022-03-19] MEDS ORDERED: INSULIN REGULAR HUMAN 100 UNIT in SODIUM CHLORIDE 0.9% 100ML 99 ML IV SCH (20:00)
[2022-03-19 20:01] LABS: VBG BASE EXCESS -30.8 mmol/L (-2 - +2); VBG HCO3 2.6 mmol/L (23-28); VBG PCO2 17.1 mmHg (41-51); VBG PO2 66.9 mmHg (25-47); VBG TOTAL CO2 3.1 mmol/L (24-29)
[2022-03-19 20:03] LABS: VBG PH 6.803 (7.31-7.41)
[2022-03-19 20:11] LABS: BUN - BLOOD UREA NITROGEN 24 mg/dL (6-20); CHLORIDE 98 mmol/L (101-111); CREATININE 1.3 mg/dL (0.4-1.0); GFR - MDRD 43 (>89); MAGNESIUM 2.1 mg/dL (1.7-2.8); POTASSIUM 4.6 mmol/L (3.5-5.0); SODIUM 131 mmol/L (135-145)
[2022-03-19 20:15] LABS: CARBON DIOXIDE - CO2 < 6 mmol/L (21-32); GLUCOSE 527 mg/dL (70-100)
[2022-03-19 20:54] LABS: B. PARAPERTUSSIS- RESP PCR PAN NOT DETECTED; B. PERTUSSIS- RESP PCR PANEL NOT DETECTED; C. PNEUMONIAE- RESP PCR PANEL NOT DETECTED; CORONAVIRUS 229E-RESP PCR NOT DETECTED; CORONAVIRUS HKU1-RESP PCR NOT DETECTED; CORONAVIRUS NL63-RESP PCR NOT DETECTED; CORONAVIRUS OC43-RESP PCR NOT DETECTED; HUMAN METAPNEUMOVIRUS NOT DETECTED; INFLUENZA A- RESP PCR PANEL NOT DETECTED; INFLUENZA B - RESP PCR PANEL NOT DETECTED; M. PNEUMONIAE- RESP PCR PANEL NOT DETECTED; PARAINFLUENZA VIRUS 1 NOT DETECTED; PARAINFLUENZA VIRUS 2 NOT DETECTED; PARAINFLUENZA VIRUS 3 NOT DETECTED; PARAINFLUENZA VIRUS 4 NOT DETECTED; RHINOVIRUS/ENTEROVIRUS NOT DETECTED; RSV- RESP PCR PANEL NOT DETECTED; SARS-CoV-2 -RESP PCR PANEL NOT DETECTED
[2022-03-19 21:34] LABS: GLUCOSE, URINE (UA) >=1000 mg/dL (NEGATIVE); KETONES,URINE (UA) >=80 mg/dL (NEGATIVE); LEUKOCYTE ESTERASE, URINE NEGATIVE (NEGATIVE); NITRITE,URINE NEGATIVE (NEGATIVE); OCCULT BLOOD,URINE MODERATE (NEGATIVE); PROTEIN,URINE 30 mg/dL (NEGATIVE); UROBILINOGEN,URINE 0.2 (NORMAL) E.U./dL (NORMAL)
[2022-03-19 21:36] LABS: BILIRUBIN,URINE NEGATIVE (NEGATIVE); CLARITY,URINE HAZY (CLEAR); HCG UR QUAL NEGATIVE; ICTOTEST,URINE NEGATIVE
[2022-03-19 21:44] LABS: AMORPHOUS SEDIMENT,UR Few /LPF; BACTERIA,URINE Few /HPF (None Seen); EPITHELIAL CELLS,UR FEW Transitional /HPF (<= Few); SQUAMOUS EPITHELIAL CELL,UR NONE SEEN (<= Few); WBC,URINE >25 /HPF (0-5)
[2022-03-19 21:50] LABS: BUN - BLOOD UREA NITROGEN 23 mg/dL (6-20); CHLORIDE 99 mmol/L (101-111); CREATININE 1.2 mg/dL (0.4-1.0); GFR - MDRD 47 (>89); GLUCOSE 465 mg/dL (70-100); MAGNESIUM 2.4 mg/dL (1.7-2.8); POTASSIUM 4.5 mmol/L (3.5-5.0); SODIUM 130 mmol/L (135-145)
[2022-03-19 21:51] LABS: CARBON DIOXIDE - CO2 < 6 mmol/L (21-32)
[2022-03-19] MEDS ORDERED: cefTRIAXone 1 GM in SODIUM CHLORIDE 0.9% MINIBAG 100 ML IV STA (22:22)
[2022-03-19] MEDS ORDERED: cefTRIAXone 1 GM VIAL ONE (23:08)
[2022-03-19 23:59] LABS: BUN - BLOOD UREA NITROGEN 24 mg/dL (6-20); CHLORIDE 101 mmol/L (101-111); CREATININE 1.1 mg/dL (0.4-1.0); GFR - MDRD 52 (>89); GLUCOSE 354 mg/dL (70-100); POTASSIUM 4.3 mmol/L (3.5-5.0); SODIUM 131 mmol/L (135-145)
[2022-03-20 00:03] LABS: CARBON DIOXIDE - CO2 < 6 mmol/L (21-32)
[2022-03-20] MEDS ORDERED: [UNRECOGNIZED DRUG - OTHER] IV ONE (01:10)
[2022-03-20] MEDS: D5.45NS W/20 MEQ KCL 1,000 ML IV SCH ×5 (01:14→22:31)
[2022-03-20 02:23] LABS: CALCIUM 8.9 mg/dL (8.5-10.3); CREATININE 1.1 mg/dL (0.4-1.0); MAGNESIUM 1.8 mg/dL (1.7-2.8); POTASSIUM 4.3 mmol/L (3.5-5.0)
[2022-03-20 04:29] LABS: BASOPHILS % (AUTO) 0.1 %; HCT - HEMATOCRIT 30.1 % (37.0-47.0); HGB - HEMOGLOBIN 9.4 g/dL (12.0-16.0); LYMPHOCYTES % (AUTO) 7.9 %; MEAN CORPUSCULAR HEMOGLOBIN 32.2 pg (27.0-31.0); MEAN CORPUSCULAR HGB CONC 31.2 g/dL (32.0-36.0); MEAN CORPUSCULAR VOLUME 103.1 fL (81.0-99.0); MEAN PLATELET VOLUME 9.1 fL (7.9-10.8); MONOCYTES % (AUTO) 2.3 %; NEUTROPHILS % (AUTO) 89.1 %; PLT - PLATELET COUNT 243 10^3/uL (130-450); RED BLOOD COUNT 2.92 10^6/uL (4.20-5.40); RED CELL DISTRIBUTION WIDTH 13.5 % (12.0-15.0); WHITE BLOOD COUNT 14.4 x10^3/uL (4.8-10.8)
[2022-03-20 04:43] LABS: POTASSIUM 4.1 mmol/L (3.5-5.0)
[2022-03-20 04:44] LABS: VBG BASE EXCESS -17.5 mmol/L (-2 - +2); VBG HCO3 9.8 mmol/L (23-28); VBG OXYGEN SATURATION 85.1 % (60-80); VBG PCO2 28.3 mmHg (41-51); VBG PO2 46.2 mmHg (25-47); VBG TOTAL CO2 10.7 mmol/L (24-29)
[2022-03-20 04:46] LABS: VBG PH 7.157 (7.31-7.41)
[2022-03-20 04:56] LABS: ABNORMAL LYMPHS % (MANUAL) 0 %
[2022-03-20 05:20] LABS: BAND NEUTROPHILS % (MANUAL) 16 %; LYMPHOCYTES # (MANUAL) 1.4 10^3/uL (1.5-3.5); LYMPHOCYTES % (MANUAL) 10 %; MONOCYTES # (MANUAL) 0.1 10^3/uL (0.0-1.0); NEUTROPHILS # (MANUAL) 12.8 10^3/uL (1.5-6.6); PLATELET ESTIMATE, MANUAL NORMAL (130-450,000) (NORMAL); RBC MORPHOLOGY (MULTIPLE) NORMAL APPEARANCE (NORMAL)
[2022-03-20 05:21] LABS: DIFFERENTIAL COMMENT MANUAL DIFFERENTIAL; WBC MORPHOLOGY (MULTIPLE) 1+ TOXIC GRANULATION (NORMAL)
[2022-03-20] MEDS ORDERED: SODIUM PHOSPHATE 20 MMOL in SODIUM CHLORIDE 0.9% 250 ML IV ONE (05:32)
[2022-03-20 08:16] LABS: CALCIUM 8.8 mg/dL (8.5-10.3); CREATININE 0.9 mg/dL (0.4-1.0); POTASSIUM 3.7 mmol/L (3.5-5.0)
[2022-03-20] MEDS: PANTOPRAZOLE 40 MG TABLET PO SCH (08:39)
[2022-03-20] MEDS ORDERED: cefTRIAXone 1 GM in SODIUM CHLORIDE 0.9% MINIBAG 100 ML IV SCH (09:00)
[2022-03-20] MEDS ORDERED: ENOXAPARIN 40 MG/0.4 ML SYRINGE SUBQ SCH (09:00)
--- NOTE | 2022-03-20 09:00 | ED Physician Documentation ---
ED Addendum - Addendum Addendum: 03/20/22 08:58 The patient is awake alert and conversant. No nausea at this time. She denies any localized pains. She states she had had some malaise and mild congestion for a day or 2 prior to this. She has only been diabetic for 4 years. Her typical insulin doses Lantus 40 mg daily. She has not had DKA other than her initial episode of new onset diabetes. Her blood test this morning are shows an improving blood gas with now pH 7.1. Her anion gap is decreasing and was 12. Blood sugar is moderate and so we had already initiated a D5 drip. We will continue watching the blood sugars every hour for now. She is on the insulin drip. Otherwise her potassium is good. Her phosphorus is low and getting replacement therapy. We will continue electrolytes every 3 hours and blood sugar hourly. Can check blood gas venous every 3 hours for now. Initial blood culture was showing positive for gram negative bacilli. She is already been started on ceftriaxone which should be reasonable coverage. Her urine culture is in progress. Continue with current therapies and watch closely her electrolytes, sugar, modulate the insulin and dextrose drips and reassess through the day.
[2022-03-20 11:05] LABS: VBG BASE EXCESS -11.3 mmol/L (-2 - +2); VBG HCO3 15.1 mmol/L (23-28); VBG OXYGEN SATURATION 73.7 % (60-80); VBG PCO2 35.9 mmHg (41-51); VBG PH 7.242 (7.31-7.41); VBG PO2 33.7 mmHg (25-47); VBG TOTAL CO2 16.2 mmol/L (24-29)
[2022-03-20 11:32] LABS: CALCIUM 8.8 mg/dL (8.5-10.3); CREATININE 0.7 mg/dL (0.4-1.0); POTASSIUM 3.4 mmol/L (3.5-5.0)
[2022-03-20] MEDS ORDERED: INSULIN GLARGINE-YFGN 300 UNIT/3 ML PEN SUBQ STA (12:02)
[2022-03-20 14:22] LABS: VBG PCO2 28.8 mmHg (41-51); VBG PH 7.323 (7.31-7.41); VBG PO2 70.6 mmHg (25-47)
[2022-03-20 14:23] LABS: VBG BASE EXCESS -10.2 mmol/L (-2 - +2); VBG HCO3 14.6 mmol/L (23-28); VBG OXYGEN SATURATION 94.8 % (60-80); VBG TOTAL CO2 15.5 mmol/L (24-29)
[2022-03-20 14:33] LABS: CALCIUM 8.2 mg/dL (8.5-10.3); CREATININE 0.6 mg/dL (0.4-1.0); POTASSIUM 3.5 mmol/L (3.5-5.0)
[2022-03-20] MEDS ORDERED: oxyCODONE 5 MG TABLET PO PRN (15:31)
[2022-03-20] MEDS ORDERED: SODIUM CHLORIDE FLUSH 0.9% 10 ML SYRINGE IVP PRN (15:31)
[2022-03-20] MEDS ORDERED: ONDANSETRON 4 MG/2 ML VIAL IVP PRN (15:31)
[2022-03-20] MEDS ORDERED: ONDANSETRON ODT 4 MG TABLET TL PRN (15:31)
--- NOTE | 2022-03-20 15:49 | HISTORY & PHYSICAL EXAMINATION ---
Chief Complaint - Chief Complaint Chief Complaint: Shortness of breath History of Present Illness - Admitted From Admitted From:: Home via EMS - History Obtained From Records Reviewed: [facility] [employer] History obtained from: Patient and Dr. Dietz Exam Limitations: None - History of Present Illness HPI Comment/Other: 51-year-old female with diagnosis of type 2 diabetes mellitus requiring insulin that presented to the emergency room 03/19/22 because she was short of breath. Shortness of breath started the day before she was seen in the emergency room and gradually getting worse. She had a cough, sore throat, and had polyuria, polydipsia. She felt bloated and constipated but did not have abdominal pain. Her shortness of breath got to the point that she called the ambulance. Came to [facility] 2013. To be with a fianc. It did not work out and she started living with her father's best friend. 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 She has a history of Pancreatitis [address] [facility] with probable alcoholic pancreatitis. Continue to drink. In April 2017 became suddenly ill. Became unresponsive at her employer's house and was found hypotensive, naked, unresponsive. She was in shock, DKA, with a UTI. That was her first diagnosis for diabetes In the emergency room she was 100% saturated on room air, respiratory rate was 26, blood pressure 112/76, heart rate 123, and temperature 35.6. Between her first triage vitals at 6:30 in the evening on March 19 to now the patient has remained tachycardic. She varies anywhere between 106-128. Blood pressure was initially low and will go down to 100 systolic but is now 132. She is remained normally oxygenating between when she was seen in the ER and when the ER doctor is call me now. With the March 19 ER evaluation she was alert and oriented, following commands, had dry mucous membranes, was tachycardic but with a regular rate and rhythm. Tachypneic deep breathing without abnormal auscultation. Her white blood count was 18,000. Hemoglobin 10.2. MCV 110. Initial venous blood gas showed a pH of 6.8, PCO2 19, PO2 57, bicarb 2.9 and low. Base excess was -30. Sodium was 129. Potassium 4.8. BUN 24, creatinine 1.2, glucose 520. She had a large amount of ketones. Urinalysis had moderate occult blood, negative nitrates, negative bilirubin, leukocyte Estrace negative, There were no ICU beds available. As such the patient remained in the ER and was started on an insulin drip. Attempt [place] Insulin drip has managed to bring her down with regards to glucose. Her anion gap is closed. Carbon dioxide remains low at 16 but it started at 6. Lactic acid is 1.5. She was started on Rocephin and received a dose on the sixth and received a dose today. Blood cultures were positive growing gram-negative bacilli. White cell count started at 18,000 and is 14,000 today. Now that she is off the insulin drip, and has been started on her home Lantus, the ER provider has discussed the case at length with me. We went over the pros and cons of how long to keep her on an insulin drip. I think she is safe to come off the drip and we can admit her to [facility]. History - Past Medical History Cardiovascular: reports: None Respiratory: reports: None Neuro: reports: None Endocrine/Autoimmune: reports: Type 2 diabetes GI: reports: Pancreatitis KITCHEN HAND: reports: Other () : reports: None HEENT: reports: None Psych: reports: None Musculoskeletal: reports: None - Past Surgical History /KITCHEN HAND: reports: Tubal ligation - Family & Social History Family History Comment/Other: Father is 78 with heart disease manifested as stents and a pacer. Mom of unknown type of cancer. 1 brother has survived an unknown type of cancer. 1 brother is healthy. 1 brother has type 2 diabetes mellitus. Daughter is completely healthy Living arrangement: At home Living Situation: With family (she lives w dad and takes care of him) Social History Notes: Born in [facility]. Has worked at [employer], [employer] Was living in [place], then [place], then moved to [facility] in 2013. Now living w dad and taking care of him. No his tory of recreational substance abuse. She drinks very rarely now. She said her last drink was 3 weeks ago.Currently a non Smoker.Used to smoke A pack to a pack per day for 20 years Meds/Allgy - Home Medications Home Medications: Ambulatory Orders Medication Instructions Recorded Confirmed Insulin Glargine [Lantus Solostar] 40 unit SQ QPM 06/24/17 03/20/22 Aspirin Chewable [[facility] 81 mg PO DAILY 03/20/22 03/20/22 Aspirin] Biotin 800 mcg PO DAILY 03/20/22 03/20/22 metFORMIN [Glucophage] 1,000 mg PO BIDWM 03/20/22 03/20/22 - Allergies Allergies/Adverse Reactions: Allergies Allergy/AdvReac Type Severity Reaction Status Date / Time No Known Drug Allergies Allergy Verified 04/26/17 02:10 Review of Systems - Constitutional Constitutional: denies: Fatigue, Fever, Chills, Malaise, Weakness, Poor appetite - Eyes Eyes: denies: Pain, Amaurosis, Blurred vision, Vision loss - Ears, Nose & Throat Ears, Nose & Throat: denies: Ear pain, Hearing loss, Nasal pain, Sore throat, Hoarseness - Cardiovascular Cariovascular: denies: Irregular heart rate, Palpitations, Chest pain, Exertional dyspnea, Decr. exercise tolerance - Respiratory Respiratory: denies: Cough, Sputum production, Wheezing - Gastrointestinal Gastrointestinal: reports: Reflux/heartburn, Bloating. denies: Abdominal pain, Abdominal distention - Genitourinary Genitourinary: denies: Dysuria, Frequency, Urgency - Musculoskeletal Musculoskeletal: reports: Muscle aches, Joint pain - Integumentary Integumentary: denies: Rash, Pruritis, Lesions - Neurological Neurological: denies: General weakness, Focal weakness, Headache, Memory problems, Pre-existing deficit - Psychiatric Psychiatric: denies: Depression, Anxiety, Suicidal - Endocrine Endocrine: denies: Polyuria, Polydypsia, Polyphagia - Hematologic/Lymphatic Hematologic/Lymphatic: denies: Anemia, Bruising, Petechiae Prior Level of Functionality: She says that she is when that runs the household. She drives a car, pays bills, cleans house, takes care of her dad without any use of durable medical equipment Exam - Vital Signs Reviewed Vital Signs: Yes Vital Signs: Vital Signs x48h Temp Pulse Resp BP Pulse Ox 03/20/22 15:00 116 H 14 132/81 H 100 03/20/22 14:30 112 H 18 132/81 H 100 03/20/22 14:00 36.5 C 118 H 17 130/74 100 03/20/22 13:30 36.5 C 106 H 15 130/75 100 03/20/22 13:00 111 H 14 119/71 100 03/20/22 12:30 128 H 18 129/71 100 03/20/22 12:00 128 H 17 115/66 100 03/20/22 11:30 128 H 18 113/66 100 03/20/22 11:00 123 H 21 128/70 100 03/20/22 10:30 126 H 18 114/71 100 03/20/22 10:00 131 H 16 134/63 H 100 03/20/22 09:30 36.4 C L 135 H 18 146/86 H 100 03/20/22 09:00 113 H 18 137/70 H 100 03/20/22 08:30 114 H 18 137/70 H 100 03/20/22 08:01 113 H 20 132/74 H 100 - Physical Exam General Appearance: positive: Alert (But very fatigued. She says she just wants just to let her sleep) Eyes Bilateral: positive: PERRL, EOMI ENT: positive: Dry mucous membranes, Other (Lips cracked) Neck: positive: Thyroid nml, No JVD. negative: Stiff neck Respiratory: positive: No respiratory distress. negative: Wheezes, Rales, Rhonchi Cardiovascular: positive: Regular rate & rhythm. negative: Systolic murmur, Gallop/S4 Peripheral Pulses: positive: 1+ Abdomen: positive: No organomegaly, Nml bowel sounds, No distention, Tenderness (Mild and vague, diffuse.). negative: Guarding, Rebound Skin: positive: Warm, Dry. negative: Pallor Extremities: positive: Full ROM, No pedal edema Neurologic/Psychiatric: positive: Oriented x3, CN's nml (2-12), Motor nml, Mood/affect nml (exhausted and wants to sleep) Conclusion/Plan - Problem List (1) DKA (diabetic ketoacidoses) Conclusion/Plan: When she was transferred from the emergency room, there was a miscommunication. I had intended for her to be on MedSurg. Not on the DKA protocol. But she came over on an IV insulin drip and as such we scramble to put her in the ICU. Right now she is on 3 units. Carbon dioxide is 15. Anion gap is 10. Much improved when she was seen in the emergency room yesterday. It appears that the cause of her DKA is another UTI. This was her presentation when she was with us a couple of years ago. Urine is clear but gram-negative bacteremia is present on blood cultures. Plan: Keep her in the ICU and change her status from MedSurg to ICU Continue insulin drip at 3 units an hour and start the DKA protocol Reevaluated tomorrow morning. See if I can stop her insulin drip then and transition her to Lantus and short acting insulin Qualifiers: Diabetes mellitus type: type 2 Diabetes mellitus complication detail: without coma Qualified Code(s): E11.10 - Type 2 diabetes mellitus with ketoacidosis without coma (2) E coli bacteremia Conclusion/Plan: with presumed source being urine. Urine culture is pending. She denies urgency, frequency dysuria in the days before presentation. But she says she never remember being sick the last time either with a UTI. Plan: Reviewed urine cultures when available Continue Rocephin When sensitivities available changed to p.o. abx (3) Electrolyte depletion Conclusion/Plan: She has hypokalemia, and I anticipate hypophosphatemia and hypocalcemia. She will be started on the electrolyte protocol and all of these will be supplemented as needed. (4) Anemia Conclusion/Plan: Appears to be a chronic problem for her in 2018, with her first admission for septic shock with DKA, her hemoglobin was 9.4 at that time. We will do anemia panel, fecal occult stool Qualifiers: Anemia type: unspecified type Qualified Code(s): D64.9 - Anemia, unspecified - Lab Results Lab results reviewed: Yes Fish Bones: 03/20/22 04:17 03/20/22 16:58 Core Measures - Anticipated LOS I expect patient to be DC'd or transferred within 96 hours.: Yes - DVT/VTE - Prophylaxis VTE/DVT Prophylaxis med ordered at admit?: Yes
--- NOTE | 2022-03-20 15:52 | ED Physician Documentation ---
ED Addendum - Addendum Addendum: 03/20/22 15:49 The patient was a week and conversant and interacting well. She did know that she was able to take oral foods and fluids. She was given lunch. As she was starting to eat, we also did give her half of her normal dose of Lantus. She typically takes 40 units daily we gave 20 units. In we had decreased the insulin drip to just 1 unit. Her repeat blood sugars were running better. She had gone down to approximately 86 on the prior dosing. With this dose now her repeat sugar was 200. We should be able to go with short acting subcutaneous though as her pH has improved to 7.3 to and her anion gap is normal at 9. Her electrolytes remained stable. I talked with the hospitalist for consultation on the treatment plan. Given the above course and improvement, the patient would now be suitable for Medr and did not need the ICU. As such we do have beds available and Dr. Mendoza will write admission orders for the patient. Disposition: The patient is a placed in observation to the medical floor Diagnoses: 1. Hyperglycemia with DKA 2. Nausea and vomiting 3. UTI 4. Bacteremia with gram-negative bacilli 5. Insulin-dependent diabetes
--- NOTE | 2022-03-20 16:36 | PHARMACY PROGRESS NOTE ---
- Best Possible Medication History Admit Date and Time: 03/20/22 1531 Processed by: Pharmacy Medication History completed: Yes Patient Interview: Pt interview ONLY source As the person ultimately responsible for medication therapy, providers are able to order a medication from an existing home medication list in [facility] via the "Reconcile Routine" prior to Confirmation of that medication by technical support technician. Such practice is discouraged except when the physician, in their clinical judgment, deems that a medical need exists for a medication without regard to previous use.
[2022-03-20] MEDS ORDERED: INSULIN LISPRO 300 UNIT/3 ML PEN SUBQ SCH ×2 (17:00)
[2022-03-20 17:07] LABS: VBG PCO2 26.4 mmHg (41-51); VBG PH 7.34 (7.31-7.41); VBG PO2 89.2 mmHg (25-47)
[2022-03-20 17:08] LABS: VBG BASE EXCESS -10.4 mmol/L (-2 - +2); VBG HCO3 13.9 mmol/L (23-28); VBG OXYGEN SATURATION 96.7 % (60-80); VBG TOTAL CO2 14.7 mmol/L (24-29)
[2022-03-20 17:13] LABS: CALCIUM 8.3 mg/dL (8.5-10.3); CREATININE 0.7 mg/dL (0.4-1.0); POTASSIUM 3.4 mmol/L (3.5-5.0)
[2022-03-20] MEDS ORDERED: POTASSIUM CHLOR 10 MEQ/100 ML 10 MEQ/100 ML BAG IV ONE (18:10)
[2022-03-20 18:39] LABS: MAGNESIUM 1.4 mg/dL (1.7-2.8); PHOSPHORUS 1.1 mg/dL (2.5-4.6)
[2022-03-20] MEDS: DEXTROSE 5%-0.9% NACL 1,000 ML IV SCH (18:54)
[2022-03-20] MEDS ORDERED: INSULIN REGULAR HUMAN 100 UNIT in SODIUM CHLORIDE 0.9% 100ML 99 ML IV SCH (19:00)
[2022-03-20] MEDS ORDERED: POTASSIUM PHOSPHATE 21 MMOL in SODIUM CHLORIDE 0.9% 250 ML IV ONE (19:25)
[2022-03-20 20:11] LABS: CALCIUM 8.5 mg/dL (8.5-10.3); CREATININE 0.5 mg/dL (0.4-1.0); POTASSIUM 3.1 mmol/L (3.5-5.0)
[2022-03-20] MEDS: MAGNESIUM SULFATE 2 GRAM 2 GM/50 ML BAG IV SCH ×2 (20:56→21:59)
[2022-03-20] MEDS ORDERED: INSULIN GLARGINE-YFGN 300 UNIT/3 ML PEN SUBQ SCH (21:00)
[2022-03-20] MEDS: SODIUM CHLORIDE FLUSH 0.9% 10 ML SYRINGE IVP SCH (21:26)
[2022-03-20] MEDS: INSULIN LISPRO 300 UNIT/3 ML PEN SUBQ SCH (21:27)
[2022-03-20] MEDS ORDERED: ZINC OXIDE 20% OINT 30 GM TUBE TOP PRN (21:41)
[2022-03-20] MEDS: SODIUM CHLORIDE 0.9% 1,000 ML IV SCH (21:44)
[2022-03-20] MEDS ORDERED: POTASSIUM CHLOR 10 MEQ/100 ML 10 MEQ/100 ML BAG IV SCH (22:00)
[2022-03-20] MEDS: INSULIN GLARGINE-YFGN 300 UNIT/3 ML PEN SUBQ SCH (22:03)
[2022-03-20] MEDS: NS W/20 MEQ KCL 1,000 ML IV SCH (22:05)
[2022-03-21 00:20] LABS: VBG HCO3 15.2 mmol/L (23-28); VBG OXYGEN SATURATION 96.4 % (60-80); VBG PCO2 27.8 mmHg (41-51); VBG PH 7.356 (7.31-7.41); VBG PO2 78.7 mmHg (25-47); VBG TOTAL CO2 16.1 mmol/L (24-29)
[2022-03-21 00:29] LABS: CALCIUM 8.4 mg/dL (8.5-10.3); CREATININE 0.6 mg/dL (0.4-1.0); MAGNESIUM 2.6 mg/dL (1.7-2.8); POTASSIUM 4.5 mmol/L (3.5-5.0)
[2022-03-21] MEDS: ACETAMINOPHEN 325 MG TABLET PO PRN ×2 (00:37→22:33)
[2022-03-21] MEDS: SODIUM CHLORIDE FLUSH 0.9% 10 ML SYRINGE IVP SCH ×3 (00:54→18:00)
[2022-03-21] MEDS: D5.45NS W/20 MEQ KCL 1,000 ML IV SCH (02:12)
[2022-03-21] MEDS: NS W/20 MEQ KCL 1,000 ML IV SCH ×2 (04:50→18:12)
[2022-03-21] MEDS: DEXTROSE 5%-0.9% NACL 1,000 ML IV SCH (04:50)
[2022-03-21] MEDS: SODIUM CHLORIDE 0.9% 1,000 ML IV SCH (04:50)
[2022-03-21 05:04] LABS: CALCIUM, IONIZED 1.2 mmol/L (1.15-1.33); VBG PH 7.39 (7.31-7.41)
[2022-03-21 05:26] LABS: CREATININE 0.6 mg/dL (0.4-1.0); MAGNESIUM 2.6 mg/dL (1.7-2.8); POTASSIUM 3.6 mmol/L (3.5-5.0)
[2022-03-21] MEDS ORDERED: DEXTROSE GEL 37.5 GM TUBE PO ONE (05:47)
[2022-03-21] MEDS ORDERED: DEXTROSE GEL 37.5 GM TUBE ONE (05:47)
[2022-03-21] MEDS: PANTOPRAZOLE 40 MG TABLET PO SCH (06:51)
[2022-03-21] MEDS: NEUTRA-PHOS 250 MG TABLET PO SCH ×2 (06:51→09:18)
[2022-03-21] MEDS ORDERED: POTASSIUM CHLORIDE 20 MEQ TABLET PO ONE (07:00)
[2022-03-21] MEDS: INSULIN LISPRO 300 UNIT/3 ML PEN SUBQ SCH ×4 (08:27→20:47)
[2022-03-21] MEDS: cefTRIAXone 1 GM in SODIUM CHLORIDE 0.9% MINIBAG 100 ML IV SCH (09:17)
[2022-03-21] MEDS: ENOXAPARIN 40 MG/0.4 ML SYRINGE SUBQ SCH (09:18)
[2022-03-21 09:31] LABS: ESTIMATED AVERAGE GLUCOSE 309 mg/dL (70-100); HEMOGLOBIN A1c% 12.4 % (4.27-6.07)
--- NOTE | 2022-03-21 14:43 | PROVIDER PROGRESS NOTE ---
Progress Note March 2022 2:39 PM She received 40 units of Lantus last night. This around 10:30 at night and then insulin drip was shut off. This morning she was hypoglycemic to the 50s. We verified that that is what she takes at home. She says that she does take the 40 but she only checks her sugar once a day. When we asked her how does she know if she is too high or too low she says she usually knows when she is too low when she gets a little "shaky". After the hypoglycemia was treated this morning, she has been stable. She ate breakfast and she was 271. Before lunch she was 194. A1c came back and she was 12.4%. Active Medications Acetaminophen (Acetaminophen 325 Mg Tablet) 650 mg PO Q4HR PRN PRN Reason: Pain 1 to 4, or Fever Last Admin: 03/21/22 00:37 Dose: 650 mg Enoxaparin Sodium (Enoxaparin 40 Mg/0.4 Ml Syringe) 40 mg SUBQ DAILY [facility] Last Admin: 03/21/22 09:18 Dose: 40 mg Potassium Chloride/Sodium Chloride (Normal Saline 0.9% W/20 Meq Kcl) 1,000 mls @ 100 mls/hr IV .Q10H [facility] Last Infusion: 03/21/22 07:48 Dose: 100 mls/hr Ceftriaxone Sodium 1 gm/ (Sodium Chloride) 100 mls @ 200 mls/hr IV DAILY [facility] Last Infusion: 03/21/22 10:00 Dose: Infused Sodium Chloride (Normal Saline 0.9%) 1,000 mls @ 125 mls/hr IV .Q8H [facility] Last Admin: 03/21/22 04:50 Dose: Not Given Dextrose/Sodium Chloride (D5ns) 1,000 mls @ 125 mls/hr IV .Q8H [facility] Last Admin: 03/21/22 04:50 Dose: Not Given Insulin Glargine-yfgn (Insulin Glargine-Yfgn 300 Unit/3 Ml Pen) 40 unit SUBQ QPM [facility] Last Admin: 03/20/22 22:03 Dose: 40 unit Insulin Human Lispro (Insulin Lispro 300 Unit/3 Ml Pen) 1 - 5 unit SUBQ 0800,1200,1700,2100 [facility]; Protocol Last Admin: 03/21/22 12:00 Dose: 2 unit Multi-Ingredient Ointment (Zinc Oxide 20% Oint 30 Gm Tube) 1 applic TOP PRN PRN PRN Reason: Skin Care Last Admin: 03/21/22 00:33 Dose: 1 applic Ondansetron HCl (Ondansetron Odt 4 Mg Tablet) 4 mg TL Q6HR PRN PRN Reason: Nausea / Vomiting Ondansetron HCl (Ondansetron 4 Mg/2 Ml Vial) 4 mg IVP Q6HR PRN PRN Reason: Nausea / Vomiting Oxycodone HCl (Oxycodone 5 Mg Tablet) 5 mg PO Q4HR PRN PRN Reason: Pain 5 to 7 Pantoprazole Sodium (Pantoprazole 40 Mg Tablet) 40 mg PO QDAC [facility] Last Admin: 03/21/22 06:51 Dose: 40 mg Sodium Chloride (Sodium Chloride Flush 0.9% 10 Ml Syringe) 10 ml IVP PRN PRN PRN Reason: NEEDED PER PROVIDER ORDERS Sodium Chloride (Sodium Chloride Flush 0.9% 10 Ml Syringe) 10 ml IVP 0100,0900,1700 [facility] Last Admin: 03/21/22 09:18 Dose: 10 ml Insulin Glargine [Lantus Solostar] 40 unit SQ QPM 06/24/17 Aspirin Chewable [[facility] Aspirin] 81 mg PO DAILY 03/20/22 Biotin 800 mcg PO DAILY 03/20/22 metFORMIN [Glucophage] 1,000 mg PO BIDWM 03/20/22 Exam: Temperature is 36.5, heart rate 92, blood pressure 95/61, respiratory rate 11- 13. She is 98% on room air She is a very small, thin statured female at 5 feet 3 inches tall, 44.5 kg Looks older than stated age and looks very tired Neck is supple without adenopathy Lungs are clear without any tachypnea, crackles, rhonchi Regular rate and rhythm. She has been consistently tachycardic overnight, and finally started having her pulse rate go below 100 this morning. Abdomen is soft, nontender Extremities or without clubbing cyanosis or edema Sodium 136, potassium 3.6, chloride 112, carbon dioxide 19, anion gap 5, BUN 8, creatinine 0.6. Calcium magnesium phosphorus are all being monitored and supplemented with the electrolyte protocol. Magnesium was 2.6 this morning, phosphorus was 1.6, calcium 8.0 Both urine and blood culture are growing E. coli. Sensitivities are pending. Conclusion/Plan - Problem List (1) DKA (diabetic ketoacidoses) Conclusion/Plan: When she was transferred from the emergency room, there was a miscommunication. I had intended for her to be on MedSurg. Not on the DKA protocol. But she came over on an IV insulin drip and as such we scrambled to put her in the ICU last night and she came over on 3 units,. She is now off insulin drip. She has been transitioned to Lantus and sliding scale insulin. Over the course the day she is needed very small amount before breakfast and before lunch. It appears that the cause of her DKA is another UTI. This was her presentation when she was with us a couple of years ago. Urine and blood cultures are growing E. coli Plan: She is observation status. MedSurg status in the ICU. I would leave it up to nursing and administration to decide where she goes. Anticipate continuing to monitor her glucose before meals. Making sure she does not go back into DKA. So far she is stable today and anticipate discharge tomorrow That being said, the patient needs a lot more diabetic instruction. She is not checking her sugars at home. Sometimes she takes 20 units, sometimes she takes 40 units of Lantus. We only tell me how she decides to do 1 or the other. Qualifiers: Diabetes mellitus type: type 2 Diabetes mellitus complication detail: without coma Qualified Code(s): E11.10 - Type 2 diabetes mellitus with ketoacidosis without coma (2) E coli bacteremia Conclusion/Plan: with presumed source being urine. Urine culture is also positive for E. coli. She denies urgency, frequency dysuria in the days before presentation. But she says she never remember being sick the last time either with a UTI. Plan: Continue Rocephin When sensitivities available changed to p.o. abx (3) Electrolyte depletion Conclusion/Plan: She has hypokalemia, and I anticipate hypophosphatemia and hypocalcemia. She is currently on the electrolyte protocol. That we will continue while in ICU (4) Anemia Conclusion/Plan: Appears to be a chronic problem for her in 2018, with her first admission for septic shock with DKA, her hemoglobin was 9.4 at that time. We will do anemia panel, fecal occult stool Qualifiers: Anemia type: unspecified type Qualified Code(s): D64.9 - Anemia, unspecified
[2022-03-21 15:07] LABS: ABSOLUTE RETICS # AUTO 0.017 10^6/uL (0.020-0.110); RED BLOOD COUNT 2.49 10^6/uL (4.20-5.40); RETICULOCYTE COUNT % (AUTO) 0.67 % (0.5-2.3)
[2022-03-21 15:30] LABS: % IRON SATURATION 15 % (20-50); IRON 26 ug/dL (28-170); TOTAL IRON BINDING CAPACITY 179 ug/dL (250-450); TRANSFERRIN 128 mg/dL (192-382)
[2022-03-21 16:01] LABS: FERRITIN 216.4 ng/mL (11.0-306.8)
[2022-03-21] MEDS: INSULIN GLARGINE-YFGN 300 UNIT/3 ML PEN SUBQ SCH (20:46)
[2022-03-22] MEDS: SODIUM CHLORIDE FLUSH 0.9% 10 ML SYRINGE IVP SCH ×2 (01:00→08:32)
[2022-03-22] MEDS: NS W/20 MEQ KCL 1,000 ML IV SCH ×2 (03:54→10:27)
[2022-03-22] MEDS: PANTOPRAZOLE 40 MG TABLET PO SCH (05:50)
[2022-03-22 06:12] LABS: BASOPHILS % (AUTO) 0.9 %; CALCIUM, IONIZED 1.16 mmol/L (1.15-1.33); EOSINOPHILS % (AUTO) 0.9 %; HCT - HEMATOCRIT 26.2 % (37.0-47.0); HGB - HEMOGLOBIN 8.5 g/dL (12.0-16.0); LYMPHOCYTES # (AUTO) 1.3 10^3/uL (1.5-3.5); LYMPHOCYTES % (AUTO) 31.4 %; MEAN CORPUSCULAR HEMOGLOBIN 32.1 pg (27.0-31.0); MEAN CORPUSCULAR HGB CONC 32.4 g/dL (32.0-36.0); MEAN CORPUSCULAR VOLUME 98.9 fL (81.0-99.0); MEAN PLATELET VOLUME 9.9 fL (7.9-10.8); MONOCYTES # (AUTO) 0.5 10^3/uL (0.0-1.0); NEUTROPHILS # (AUTO) 2.4 10^3/uL (1.5-6.6); NEUTROPHILS % (AUTO) 55.6 %; PLT - PLATELET COUNT 141 10^3/uL (130-450); RED BLOOD COUNT 2.65 10^6/uL (4.20-5.40); RED CELL DISTRIBUTION WIDTH 13.9 % (12.0-15.0); VBG PH 7.431 (7.31-7.41); WHITE BLOOD COUNT 4.3 x10^3/uL (4.8-10.8)
[2022-03-22 06:27] LABS: MAGNESIUM 1.9 mg/dL (1.7-2.8); PHOSPHORUS 1.8 mg/dL (2.5-4.6)
[2022-03-22 08:12] LABS: CALCIUM 8.2 mg/dL (8.5-10.3); CREATININE 0.4 mg/dL (0.4-1.0); POTASSIUM 4.4 mmol/L (3.5-5.0)
[2022-03-22] MEDS: INSULIN LISPRO 300 UNIT/3 ML PEN SUBQ SCH (08:12)
[2022-03-22] MEDS: ENOXAPARIN 40 MG/0.4 ML SYRINGE SUBQ SCH (08:30)
[2022-03-22] MEDS: cefTRIAXone 1 GM in SODIUM CHLORIDE 0.9% MINIBAG 100 ML IV SCH (08:32)
--- NOTE | 2022-03-22 09:14 | Discharge Plan ---
Discharge Plan Problem Reviewed?: Yes Disposition: Home, Self Care Condition: Good Prescriptions: Sulfamethox/Trimeth 800/160 [Bactrim Ds] 1 tablet PO BID 7 Days #8 tablet Ferrous Gluconate 324 mg PO DAILY #30 tablet Diet: Diabetic Activity Restrictions: Activity as Tolerated Shower Restrictions: No Driving Restrictions: No Health Concerns: You came into the hospital because you were very, very short of breath. One of the staff in the ER told you that you were having a panic attack. I personally think that you were hyperventilating because you were in DKA. Diabetic ketoacidosis causes dangerous levels of blood acid to accumulate. One of the ways you get rid of acid is to hyperventilate. I think that your body was making you hyperventilate to blow off the acid from the diabetic ketoacidosis. You were placed on an insulin drip. We had no beds in the hospital and you had to stay in the ER for a day. The next day you were able to go into the hospital room. You have gradually come off the insulin drip, and are back on your Lantus 40 units at night. We identified you as having a urinary tract infection that grew in your bladder and spread into your bloodstream. We think that is what caused you to go into DKA as well. One other problem we saw was iron deficiency anemia. Most women have iron deficiency anemia because they have a regular menstrual cycle. Since you are not currently menstruating, we have to look for other causes for iron deficiency anemia. Plan of Treatment: 1. Please establish yourself with a new primary care provider as soon as possible. You will no longer be seeing your previous provider, and the bilingual social worker is given you a list of primary care providers to call. 2. I am sending you home with 4 more days of antibiotic therapy. I am sending you home with Bactrim, 1 tablet twice a day for the next 4 days. 3. Please check your sugar more than once a day. You need to check your sugar before breakfast lunch and dinner. In case you need more test trips, I am calling in a bottle of test trips to [facility]. 4. When you see your new doctor, let them know that we diagnosed you with iron deficiency anemia and they will have to do a work-up looking for the causes of it. It is important you do so. Because some of the causes are of iron deficiency anemia are things like colon cancer. Care Goals: To have your diabetes safely under control without any ups or downs that are severe enough to cause threat to your life Assessment: Patient is alert, oriented. States that she will follow through. Has a list of providers that she is going to call to try and get in to make an appointment No Smoking: If you smoke, Please STOP! Call for help.
--- NOTE | 2022-03-22 09:20 | DISCHARGE SUMMARY ---
Discharge Summary Admit Date: 03/20/22 Discharge Date: 03/22/22 Discharging Provider: Juli Cerda MD Primary Care Provider: NO PCP Code Status: Attempt Resuscitation Condition at Discharge: Good Discharge Disposition: 01 Home, Self Care - DIAGNOSES Discharge Diagnoses with Status of Each Condition: 1. Type 2 diabetes mellitus with ketoacidosis without coma 2. E. coli bacteremia 3. E. coli UTI 4. Hypokalemia, hypocalcemia, hypomagnesemia 5. Hyperventilation due to DKA 6. Iron deficiency anemia - HPI History of Present Illness: 51-year-old female with diagnosis of type 2 diabetes mellitus requiring insulin that presented to the emergency room 03/19/22 because she was short of breath. Shortness of breath started the day before she was seen in the emergency room and gradually getting worse. She had a cough, sore throat, and had polyuria, polydipsia. She felt bloated and constipated but did not have abdominal pain. Her shortness of breath got to the point that she called the ambulance. She told us later that she really does not check her sugar more than once a day. She is not in regular contact with her primary care provider. She really, really does not like him. And she has been getting refills from that office and has not managed to find another provider. Came to [facility] 2013. To be with a fianc. It did not work out and she started living with her father's best friend. 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 She has a history of Pancreatitis 2009 and hospitalized at [facility] with probable alcoholic pancreatitis. Continue to drink. In April 2017 became suddenly ill. Became unresponsive at her employer's house and was found hypotensive, naked, unresponsive. She was in shock, DKA, with a UTI. That was her first diagnosis for diabetes In the emergency room she was 100% saturated on room air, respiratory rate was 26, blood pressure 112/76, heart rate 123, and temperature 35.6. Between her first triage vitals at 6:30 in the evening on March 19 to now the patient has remained tachycardic. She varies anywhere between 106-128. Blood pressure was initially low and will go down to 100 systolic but is now 132. She is remained normally oxygenating between when she was seen in the ER and when the ER doctor is call me now. With the March 19 ER evaluation she was alert and oriented, following commands, had dry mucous membranes, was tachycardic but with a regular rate and rhythm. Tachypneic deep breathing without abnormal auscultation. Her white blood count was 18,000. Hemoglobin 10.2. MCV 110. Initial venous blood gas showed a pH of 6.8, PCO2 19, PO2 57, bicarb 2.9 and low. Base excess was -30. Sodium was 129. Potassium 4.8. BUN 24, creatinine 1.2, glucose 520. She had a large amount of ketones. Urinalysis had moderate occult blood, negative nitrates, negative bilirubin, leukocyte Estrace negative, There were no ICU beds available. As such the patient remained in the ER and was started on an insulin drip. Attempt [place] Insulin drip has managed to bring her down with regards to glucose. Her anion gap is closed. Carbon dioxide remains low at 16 but it started at 6. Lactic acid is 1.5. She was started on Rocephin and received a dose on the sixth and received a dose today. Blood cultures were positive growing gram-negative bacilli. White cell count started at 18,000 and is 14,000 today. Now that she is off the insulin drip, and has been started on her home Lantus, the ER provider has discussed the case at length with me. We went over the pros and cons of how long to keep her on an insulin drip. I think she is safe to come off the drip and we can admit her to [facility]. - Past Medical History Cardiovascular: reports: None Respiratory: reports: None Neuro: reports: None Endocrine/Autoimmune: reports: Type 2 diabetes GI: reports: Pancreatitis RADIO RIGGER: reports: Other () : reports: None HEENT: reports: None Psych: reports: None Musculoskeletal: reports: None - Past Surgical History /RADIO RIGGER: reports: Tubal ligation - HOSPITAL COURSE Hospital Course: The patient was transferred to the ICU and still remained on an insulin drip for a few more hours. By 10 PM that night, maybe 1030, she stayed on the drip and we transitioned her to Lantus 40 units. The next morning she was hypoglycemic and we really verified that she was on 40 units. She says that she is. But that she only checks her sugar maybe once a day at home. She recognizes hypoglycemia by getting "a little shaky". We reinstructed her on the importance of checking her sugar before meals at least 3 times a day. And reemphasized that if she is getting take Lantus 40 units at night, she must eat the next day. After adequate control was achieved, the patient was felt stable enough for discharge. She does not like her primary care provider. His only met with him a few times and feels like they are not compatible. As such we have given her a list of other primary care providers they could she can meet with in this area. I also emphasized that she probably needs to go back to diabetic education classes. Urine and blood culture did grow out E. coli. She was on empiric antibiotics for both of these. She was transition from oral antibiotics to p.o. antibiotics. She is to take Bactrim for 4 more days until she has had a total of 7 days treatment. She is also identified as having iron deficiency anemia, and she is nonmenstrual eating. I have asked her to follow through with that problem. I explained to her that it can be GI blood loss. So she should have an upper GI and lower GI. When she establishes her self with her primary care provider to please let them know that she needs this referral. She is discharged in stable condition. No change in her home medications of Lantus.Discharge exam had a temperature of 36.7. Heart rate of 86. Blood pressure 101/56. Respirations 18. 99% on room air. She is 5 foot 3 inches tall, and weighs 44.5 kg. Very slender, tiny female. Looks older than stated age. Neck is supple. Lungs are clear to auscultation and percussion. PMI is normally placed she has a regular rate and rhythm. Abdomen is soft, nontender, normal bowel sounds. Extremities are without edema. She reiterates diabetic instructions to both myself and the nurse. Agrees to follow through. Greater than 30 minutes was spent coordinating discharge and going over diabetic management with this patient. - ALLERGIES Allergies/Adverse Reactions: Allergies Allergy/AdvReac Type Severity Reaction Status Date / Time No Known Drug Allergies Allergy Verified 04/26/17 02:10 - MEDICATIONS Home Medications: Ambulatory Orders Medication Instructions Recorded Confirmed Insulin Glargine [Lantus Solostar] 40 unit SQ QPM 06/24/17 03/20/22 Aspirin Chewable [[facility] 81 mg PO DAILY 03/20/22 03/20/22 Aspirin] Biotin 800 mcg PO DAILY 03/20/22 03/20/22 Ferrous Gluconate 324 mg PO DAILY #30 tablet 03/22/22 Sulfamethox/Trimeth 800/160 1 tablet PO BID 7 Days #8 tablet 03/22/22 [Bactrim Ds] - LABS Result Diagrams: 03/22/22 05:33 03/22/22 05:33
[2022-03-22 12:03] VITALS: BP 101/56
== END 2022-03-22 11:43 | disposition home or self-care (01) ==
LOC: EDBD → EDUNIT# → ED 18:20 → ICU 03-20 15:31 → MS2 03-21 18:14
PROVIDERS: ADMIT Specialist; ATTEND Specialist
DX: E11.10 Type 2 diabetes mellitus with ketoacidosis without coma (principal); E83.42 Hypomagnesemia; D50.9 Iron deficiency anemia, unspecified; N39.0 Urinary tract infection, site not specified; B96.20 Unspecified Escherichia coli [E. coli] as the cause of diseases classified elsewhere; E87.6 Hypokalemia; T38.3X6A Underdosing of insulin and oral hypoglycemic [antidiabetic] drugs, initial encounter; Z87.891 Personal history of nicotine dependence; Z86.39 Personal history of other endocrine, nutritional and metabolic disease; Z20.822 Contact with and (suspected) exposure to COVID-19; Z79.4 Long term (current) use of insulin; Z91.138 Patient's unintentional underdosing of medication regimen for other reason
CPT/HCPCS: 36415; 80048; 80053; 80320; 81001; 81025; 82009; 82330; 82607; 82728; 82803; 83036; 83540; 83605; 83615; 83690; 83735; 84100; 84132; 84466; 85025; 85045; 87040; 87086; 87150; 87181; 87633; 96365; 96366; 96367; 96368; 96372; 96375; 96376; 99285; 99291; A9270; G0378; J1650; J1815; 81003; 82947

== ENCOUNTER 2022-05-15 09:47 | Outpatient (CLI) | payer MEDICAID | END 2022-05-15 23:59 | disposition critical access hospital (66) | LOC: EMS 09:47 | DX: R11.2 Nausea with vomiting, unspecified (principal); R19.7 Diarrhea, unspecified; R07.9 Chest pain, unspecified; R63.8 Other symptoms and signs concerning food and fluid intake; E11.65 Type 2 diabetes mellitus with hyperglycemia; F41.9 Anxiety disorder, unspecified | CPT/HCPCS: A0425; A0427; A0999 ==

== ENCOUNTER 2022-05-15 10:48 | Inpatient (IN) | payer MEDICAID ==
[2022-05-15] MEDS ORDERED: SODIUM CHLORIDE 0.9% 1,000 ML IV STA (11:21)
[2022-05-15] MEDS ORDERED: ONDANSETRON 4 MG/2 ML VIAL IVP STA (11:21)
[2022-05-15] MEDS ORDERED: SODIUM CHLORIDE 0.9% IV STA (11:30)
--- NOTE | 2022-05-15 11:36 | ED Physician Documentation ---
History of Present Illness - Stated complaint Stated Complaint: N/V/D - Chief complaint Chief Complaint: Cardiac - Additonal information Additional information: 51-year-old woman with a history of DKA type 2 diabetes has been sick with nausea vomiting and diarrhea for the last 4 days. She was admitted to this hospital in early March for similar. Found to have E. coli bacteremia and UTI. She also had DKA and was briefly on an insulin drip before she was able to be transferred to the floors. The patient reports that she does not take any short acting insulins. She is only using Lantus 20 units each morning. She did take that this AM. She checked her blood sugars prior to calling EMS and they were 433. In the room the patient is hypothermic with a temperature 35.1. She has sinus tachycardia rate of 125 on the monitor. She however is normotensive 112/77. With the preceding history we initially ordered fluids under sepsis protocol as well as initiated blood cultures and a DKA/sepsis work-up. Review of Systems Constitutional: reports: Chills, Myalgias. denies: Fever Cardiac: denies: Chest pain / pressure, Palpitations Respiratory: reports: Cough. denies: Dyspnea GI: reports: Nausea, Vomiting, Diarrhea. denies: Abdominal Pain : reports: Reviewed and negative Skin: denies: Rash, Lesions PD PAST MEDICAL HISTORY - Past Medical History Cardiovascular: None Respiratory: None Neuro: None Endocrine/Autoimmune: Type 2 diabetes GI: Pancreatitis ARMAMENT MECHANIC: Other () : None HEENT: None Psych: None Musculoskeletal: None Derm: None - Past Surgical History Past Surgical History: Yes /ARMAMENT MECHANIC: Tubal ligation - Present Medications Home Medications: Ambulatory Orders Medication Instructions Recorded Confirmed Insulin Glargine [Lantus Solostar] 40 unit SQ QPM 06/24/17 03/20/22 Aspirin Chewable [[facility] 81 mg PO DAILY 03/20/22 03/20/22 Aspirin] Biotin 800 mcg PO DAILY 03/20/22 03/20/22 Ferrous Gluconate 324 mg PO DAILY #30 tablet 03/22/22 Sulfamethox/Trimeth 800/160 1 tablet PO BID 7 Days #8 tablet 03/22/22 [Bactrim Ds] - Allergies Allergies/Adverse Reactions: Allergies Allergy/AdvReac Type Severity Reaction Status Date / Time No Known Drug Allergies Allergy Verified 04/26/17 02:10 - Social History Does the pt smoke?: No Smoking Status: Former smoker Does the pt drink ETOH?: No Does the pt have substance abuse?: No PD ED PE EXPANDED - General General: Alert, Disheveled, poorly kept, In distress. No: Well developed/nourished (Thin cachectic malnourished and wasted appearance) - Cardiac Cardiac: Regular Rate, Tachy, Radial strong equal, Pedal strong equal, Cap refill < 2 sec. No: Murmur Present - Respiratory Respiratory: Clear to ausultation robin. No: Distress, Labored - Abdomen Abdomen: Normal Bowel sounds, Other (Generally benign abdominal exam without guarding or rebound). No: Tender to palpation - Derm Derm: Normal color, Warm and dry, Other (Dry tented skin. Multiple areas of bruising on the upper arms and feet) - Extremities Extremities: Normal. No: Deformity, Tenderness, Pedal edema bilateral - Neuro Neuro: Alert and Oriented X 3, CNII-XII intact, Normal speech - GCS Eye Opening: Spontaneous Motor: Obeys Commands Verbal: Oriented Total: 15 Results - Vitals Vitals: Vital Signs - 24 hr 05/15/22 05/15/22 05/15/22 11:16 11:52 12:03 Temperature 35.1 C L Heart Rate 130 H 119 H 118 H Respiratory 24 18 20 Rate Blood Pressure 112/77 118/75 121/61 O2 Saturation 100 100 100 05/15/22 12:44 Temperature Heart Rate 115 H Respiratory 18 Rate Blood Pressure 128/80 O2 Saturation 96 Oxygen O2 Source Room air - EKG (time done) 1117 Rate: Rate (enter#) (121) Rhythm: Sinus tachycardia Intervals: Normal OK QRS: Poor R wave progression Ischemia: Q waves (anterior leads), Non specific changes Compare to prior EKG: Changed from prior EKG (q waves anterior new from 2018) Computer interpretation: Agree with computer - Labs Labs: Laboratory Tests 05/15/22 05/15/22 05/15/22 11:42 11:42 12:00 WBC 12.9 H RBC 3.89 L Hgb 12.3 Hct 41.4 MCV 106.4 H MCH 31.6 H MCHC 29.7 L RDW 12.9 Plt Count 234 MPV 9.8 Neut # (Auto) 11.2 H Lymph # (Auto) 0.6 L Lumpkin # (Auto) 0.9 Eos # (Auto) 0.0 Baso # (Auto) 0.1 Absolute Nucleated RBC 0.00 Nucleated RBC % 0.0 VBG pH VBG pCO2 VBG pO2 VBG HCO3 VBG Total CO2 VBG O2 Saturation VBG Base Excess Sodium Potassium Chloride Carbon Dioxide Anion Gap BUN Creatinine Estimated GFR (MDRD) Glucose Lactic Acid Calcium Phosphorus Magnesium Total Bilirubin AST ALT Alkaline Phosphatase Total Protein Albumin Globulin Albumin/Globulin Ratio Lipase Urine Color LT RED Urine Clarity CLEAR Urine pH 6.0 Ur Specific Howe >=1.030 H Urine Protein 100 H Urine Glucose (UA) 500 H Urine Ketones >=80 H Urine Occult Blood LARGE H Urine Nitrite NEGATIVE Urine Bilirubin NEGATIVE Urine Urobilinogen 0.2 (NORMAL) Ur Leukocyte Esterase NEGATIVE Urine RBC TNTC H Urine WBC 11-25 H Ur Squamous Epith Cells NONE SEEN Urine Bacteria Few Urine Casts 0-2 Hyaline Casts Ur Microscopic Review INDICATED Urine Culture Comments INDICATED Nasal Adenovirus (PCR) Nasal B. parapertussis DNA (PCR) Nasal Coronavir 229E PCR Nasal Coronavir HKU1 PCR Nasal Coronavir NL63 PCR Nasal Coronavir OC43 PCR Nasal Enterovir/Rhinovir PCR Nasal Influenza B PCR Nasal Influenza A PCR Nasal Parainfluen 1 PCR Nasal Parainfluen 2 PCR Nasal Parainfluen 3 PCR Nasal Parainfluen 4 PCR Nasal RSV (PCR) Nasal B.pertussis DNA PCR Nasal C.pneumoniae (PCR) Gadiel Human Metapneumo PCR Nasal M.pneumoniae (PCR) Nasal SARS-CoV-2 (PCR) Urine Opiates Screen NEGATIVE Ur Oxycodone Screen NEGATIVE Urine Methadone Screen NEGATIVE Ur Propoxyphene Screen NEGATIVE Ur Barbiturates Screen NEGATIVE Ur Tricyclics Screen NEGATIVE Ur Phencyclidine Scrn NEGATIVE Ur Amphetamine Screen NEGATIVE U Methamphetamines Scrn NEGATIVE U Benzodiazepines Scrn NEGATIVE Urine Cocaine Screen NEGATIVE U Cannabinoids Screen NEGATIVE Serum Ketones 05/15/22 05/15/22 05/15/22 12:00 12:00 12:00 WBC RBC Hgb Hct MCV MCH MCHC RDW Plt Count MPV Neut # (Auto) Lymph # (Auto) Lumpkin # (Auto) Eos # (Auto) Baso # (Auto) Absolute Nucleated RBC Nucleated RBC % VBG pH 6.979 L VBG pCO2 23.3 L VBG pO2 70.7 H VBG HCO3 5.4 L VBG Total CO2 6.1 L VBG O2 Saturation 88.9 H VBG Base Excess -25.0 L Sodium 131 L Potassium 4.5 Chloride 93 L Carbon Dioxide 6 L* Anion Gap 32.0 H BUN 12 Creatinine 1.6 H Estimated GFR (MDRD) 34 L Glucose 467 H Lactic Acid 1.8 Calcium 9.6 Phosphorus 5.1 H Magnesium 1.8 Total Bilirubin 1.2 H AST 28 ALT 19 Alkaline Phosphatase 117 Total Protein 8.0 Albumin 3.8 Globulin 4.2 Albumin/Globulin Ratio 0.9 L Lipase 22 Urine Color Urine Clarity Urine pH Ur Specific Howe Urine Protein Urine Glucose (UA) Urine Ketones Urine Occult Blood Urine Nitrite Urine Bilirubin Urine Urobilinogen Ur Leukocyte Esterase Urine RBC Urine WBC Ur Squamous Epith Cells Urine Bacteria Urine Casts Ur Microscopic Review Urine Culture Comments Nasal Adenovirus (PCR) Nasal B. parapertussis DNA (PCR) Nasal Coronavir 229E PCR Nasal Coronavir HKU1 PCR Nasal Coronavir NL63 PCR Nasal Coronavir OC43 PCR Nasal Enterovir/Rhinovir PCR Nasal Influenza B PCR Nasal Influenza A PCR Nasal Parainfluen 1 PCR Nasal Parainfluen 2 PCR Nasal Parainfluen 3 PCR Nasal Parainfluen 4 PCR Nasal RSV (PCR) Nasal B.pertussis DNA PCR Nasal C.pneumoniae (PCR) Gadiel Human Metapneumo PCR Nasal M.pneumoniae (PCR) Nasal SARS-CoV-2 (PCR) Urine Opiates Screen Ur Oxycodone Screen Urine Methadone Screen Ur Propoxyphene Screen Ur Barbiturates Screen Ur Tricyclics Screen Ur Phencyclidine Scrn Ur Amphetamine Screen U Methamphetamines Scrn U Benzodiazepines Scrn Urine Cocaine Screen U Cannabinoids Screen Serum Ketones MODERATE H 05/15/22 12:54 WBC RBC Hgb Hct MCV MCH MCHC RDW Plt Count MPV Neut # (Auto) Lymph # (Auto) Lumpkin # (Auto) Eos # (Auto) Baso # (Auto) Absolute Nucleated RBC Nucleated RBC % VBG pH VBG pCO2 VBG pO2 VBG HCO3 VBG Total CO2 VBG O2 Saturation VBG Base Excess Sodium Potassium Chloride Carbon Dioxide Anion Gap BUN Creatinine Estimated GFR (MDRD) Glucose Lactic Acid Calcium Phosphorus Magnesium Total Bilirubin AST ALT Alkaline Phosphatase Total Protein Albumin Globulin Albumin/Globulin Ratio Lipase Urine Color Urine Clarity Urine pH Ur Specific Howe Urine Protein Urine Glucose (UA) Urine Ketones Urine Occult Blood Urine Nitrite Urine Bilirubin Urine Urobilinogen Ur Leukocyte Esterase Urine RBC Urine WBC Ur Squamous Epith Cells Urine Bacteria Urine Casts Ur Microscopic Review Urine Culture Comments Nasal Adenovirus (PCR) NOT DETECTED Nasal B. parapertussis DNA (PCR) NOT DETECTED Nasal Coronavir 229E PCR NOT DETECTED Nasal Coronavir HKU1 PCR NOT DETECTED Nasal Coronavir NL63 PCR NOT DETECTED Nasal Coronavir OC43 PCR NOT DETECTED Nasal Enterovir/Rhinovir PCR NOT DETECTED Nasal Influenza B PCR NOT DETECTED Nasal Influenza A PCR NOT DETECTED Nasal Parainfluen 1 PCR NOT DETECTED Nasal Parainfluen 2 PCR NOT DETECTED Nasal Parainfluen 3 PCR NOT DETECTED Nasal Parainfluen 4 PCR NOT DETECTED Nasal RSV (PCR) NOT DETECTED Nasal B.pertussis DNA PCR NOT DETECTED Nasal C.pneumoniae (PCR) NOT DETECTED Gadiel Human Metapneumo PCR NOT DETECTED Nasal M.pneumoniae (PCR) NOT DETECTED Nasal SARS-CoV-2 (PCR) NOT DETECTED Urine Opiates Screen Ur Oxycodone Screen Urine Methadone Screen Ur Propoxyphene Screen Ur Barbiturates Screen Ur Tricyclics Screen Ur Phencyclidine Scrn Ur Amphetamine Screen U Methamphetamines Scrn U Benzodiazepines Scrn Urine Cocaine Screen U Cannabinoids Screen Serum Ketones - Rads (name of study) cxr Radiology: EMP read indepedently (No acute cardiopulmonary process) PD Medical Decision Making - ED course Complexity details: reviewed old records, reviewed results, re-evaluated adrienne mosley, considered differential, d/w patient ED course: 51-year-old female presents emergency department for evaluation of 4 days nausea vomiting. She is a type II diabetic. She was recently admitted to this hospital in mid March for DKA. On presentation to the emergency department the patient is actively nauseated and vomiting. She presents with a heart rate of 120 though she is normotensive. She was also very cold on presentation with a temperature 35.1. A bear hugger was placed. Given her history and previous presentation a work-up was initiated for sepsis and DKA. I initiated fluids 30 mils per kilogram under a sepsis protocol. Subsequently CBC showed mild leukocytosis with white count of 13,000 but no worrisome anemia. Her electrolytes were significantly deranged. She is acidotic with a pH of 6.9. She has an anion gap of 3. CO2 of 6. Ketones are positive. Her potassium was normal. Laboratory exam findings are consistent with DKA. Urinalysis is again consistent with acute cystitis. She was administered 1 g of ceftriaxone IV. With the findings of DKA I did initiate the protocol for insulin administration as her potassium was normal. I also discussed this case with Dr. Cerda and they staff was able to arrange bed so that the patient could be brought into our ICU. Dr. Molina did request that we attempt to place a central venous line. 1330: I spent approximately 45 minutes attempting right IJ central line placement. Unfortunately every time I accessed the vessel the needle clotted and I was never able to advance the wire. At this point I am asking nursing staff to ensure that there are 2 large-bore IVs and will ask anesthesia to attempt central line placement 1500: Anesthesia was unable to place a central venous catheter. This was communicated with Dr. Cerda who indicated to me she would request surgery to place a subclavian line. Further care to be dictated by the inpatient hospitalist team. - Critical Care Time(min): 60 Time Includes: Direct patient care, Review records, Reassess patient Data interpretation: Labs, ABG, CXR, Prior EKG Procedures included in critical care time: Peripheral IV Procedures excluded from critical care time: Central IV Departure - Departure Disposition: [facility] DC/Xfer Clinical Impression: Diabetes with ketoacidosis Qualifiers: Diabetes mellitus type: type 2 Diabetes mellitus terminal operations supervisor insulin use: with terminal operations supervisor use Diabetes mellitus complication detail: without coma Qualified Code(s): E11.10 - Type 2 diabetes mellitus with ketoacidosis without coma Urinary tract infection Qualifiers: Urinary tract infection type: acute cystitis Hematuria presence: without hematuria Qualified Code(s): N30.00 - Acute cystitis without hematuria Condition: Critical Discharge Date/Time: 05/15/22 15:00
[2022-05-15] MEDS ORDERED: fentaNYL 100 MCG/2 ML VIAL IVP STA (11:40)
[2022-05-15 12:10] LABS: BASOPHILS # (AUTO) 0.1 10^3/uL (0.0-0.1); BASOPHILS % (AUTO) 0.9 %; EOSINOPHILS % (AUTO) 0.1 %; HCT - HEMATOCRIT 41.4 % (37.0-47.0); HGB - HEMOGLOBIN 12.3 g/dL (12.0-16.0); LYMPHOCYTES # (AUTO) 0.6 10^3/uL (1.5-3.5); LYMPHOCYTES % (AUTO) 4.4 %; MEAN CORPUSCULAR HEMOGLOBIN 31.6 pg (27.0-31.0); MEAN CORPUSCULAR HGB CONC 29.7 g/dL (32.0-36.0); MEAN CORPUSCULAR VOLUME 106.4 fL (81.0-99.0); MEAN PLATELET VOLUME 9.8 fL (7.9-10.8); MONOCYTES # (AUTO) 0.9 10^3/uL (0.0-1.0); MONOCYTES % (AUTO) 7.1 %; NEUTROPHILS # (AUTO) 11.2 10^3/uL (1.5-6.6); NEUTROPHILS % (AUTO) 86.9 %; PLT - PLATELET COUNT 234 10^3/uL (130-450); RED BLOOD COUNT 3.89 10^6/uL (4.20-5.40); RED CELL DISTRIBUTION WIDTH 12.9 % (12.0-15.0); WHITE BLOOD COUNT 12.9 x10^3/uL (4.8-10.8)
--- NOTE | 2022-05-15 12:12 | XRAY Report ---
PROCEDURE: Postcholecystectomy. INDICATIONS: The common bile duct is dilated measuring up to 16 mm TECHNIQUE: One view of the chest was acquired. COMPARISON: Not well seen due to overlying bowel gas FINDINGS: Surgical changes and devices: . Lungs and pleura: No focal consolidation or mass. No pneumothorax or pleural effusion. Mediastinum: Mediastinal contours appear normal. Heart size is normal. Bones and chest wall: No suspicious bony lesions. Overlying soft tissues appear unremarkable. IMPRESSION: No acute cardiopulmonary abnormality. Reviewed by: Wilian Robles on 05/15/2022 11:11 AM ANITA Approved by: Wilian Robles on 05/15/2022 11:11 AM [facility] Station ID: [id number]
[2022-05-15 12:22] LABS: GLUCOSE, URINE (UA) 500 mg/dL (NEGATIVE); KETONES,URINE (UA) >=80 mg/dL (NEGATIVE); LEUKOCYTE ESTERASE, URINE NEGATIVE (NEGATIVE); NITRITE,URINE NEGATIVE (NEGATIVE); OCCULT BLOOD,URINE LARGE (NEGATIVE); PROTEIN,URINE 100 mg/dL (NEGATIVE); UROBILINOGEN,URINE 0.2 (NORMAL) E.U./dL (NORMAL)
[2022-05-15 12:25] LABS: CLARITY,URINE CLEAR (CLEAR)
[2022-05-15 12:28] LABS: BILIRUBIN,URINE NEGATIVE (NEGATIVE); ICTOTEST,URINE NEGATIVE
[2022-05-15 12:31] LABS: VBG HCO3 5.4 mmol/L (23-28); VBG OXYGEN SATURATION 88.9 % (60-80); VBG PCO2 23.3 mmHg (41-51); VBG PO2 70.7 mmHg (25-47); VBG TOTAL CO2 6.1 mmol/L (24-29)
[2022-05-15 12:33] LABS: ALBUMIN 3.8 g/dL (3.2-5.5); ALBUMIN/GLOBULIN RATIO 0.9 (1.0-2.2); ALKALINE PHOSPHATASE 117 IU/L (42-121); ALT ALANINE AMINOTRANSFERASE 19 IU/L (10-60); AST ASPARTATE AMINOTRANSFERASE 28 IU/L (10-42); BILIRUBIN,TOTAL 1.2 mg/dL (0.2-1.0); BUN - BLOOD UREA NITROGEN 12 mg/dL (6-20); CALCIUM 9.6 mg/dL (8.5-10.3); CHLORIDE 93 mmol/L (101-111); CREATININE 1.6 mg/dL (0.4-1.0); GFR - MDRD 34 (>89); GLUCOSE 467 mg/dL (70-100); LIPASE 22 U/L (22-51); MAGNESIUM 1.8 mg/dL (1.7-2.8); PHOSPHORUS 5.1 mg/dL (2.5-4.6); POTASSIUM 4.5 mmol/L (3.5-5.0); SODIUM 131 mmol/L (135-145)
[2022-05-15 12:34] LABS: CARBON DIOXIDE - CO2 6 mmol/L (21-32); VBG PH 6.979 (7.31-7.41)
[2022-05-15 12:43] LABS: BACTERIA,URINE Few /HPF (None Seen); CASTS, URINE 0-2 Hyaline Casts /LPF; RBC,URINE TNTC /HPF (0-5); SQUAMOUS EPITHELIAL CELL,UR NONE SEEN (<= Few)
[2022-05-15] MEDS ORDERED: INSULIN REGULAR HUMAN 100 UNIT in SODIUM CHLORIDE 0.9% 100ML 99 ML IV STA (12:47)
[2022-05-15] MEDS ORDERED: INSULIN REGULAR HUMAN 100 UNIT/1 ML 10 ML MDV IVP STA (12:47)
[2022-05-15] MEDS ORDERED: cefTRIAXone 1 GM VIAL IVP STA (12:48)
[2022-05-15] MEDS ORDERED: PROCHLORPERAZINE 10 MG/2 ML VIAL IVP STA (13:04)
[2022-05-15 13:12] LABS: KETONES, SERUM (ACETEST) MODERATE (NEGATIVE)
[2022-05-15 13:50] LABS: B. PARAPERTUSSIS- RESP PCR PAN NOT DETECTED; B. PERTUSSIS- RESP PCR PANEL NOT DETECTED; C. PNEUMONIAE- RESP PCR PANEL NOT DETECTED; CORONAVIRUS 229E-RESP PCR NOT DETECTED; CORONAVIRUS HKU1-RESP PCR NOT DETECTED; CORONAVIRUS NL63-RESP PCR NOT DETECTED; CORONAVIRUS OC43-RESP PCR NOT DETECTED; HUMAN METAPNEUMOVIRUS NOT DETECTED; INFLUENZA A- RESP PCR PANEL NOT DETECTED; INFLUENZA B - RESP PCR PANEL NOT DETECTED; M. PNEUMONIAE- RESP PCR PANEL NOT DETECTED; PARAINFLUENZA VIRUS 1 NOT DETECTED; PARAINFLUENZA VIRUS 2 NOT DETECTED; PARAINFLUENZA VIRUS 3 NOT DETECTED; PARAINFLUENZA VIRUS 4 NOT DETECTED; RHINOVIRUS/ENTEROVIRUS NOT DETECTED; RSV- RESP PCR PANEL NOT DETECTED; SARS-CoV-2 -RESP PCR PANEL NOT DETECTED
[2022-05-15] MEDS ORDERED: ONDANSETRON ODT 4 MG TABLET TL PRN (13:59)
--- NOTE | 2022-05-15 14:13 | HISTORY & PHYSICAL EXAMINATION ---
Chief Complaint - Chief Complaint Chief Complaint: Nausea, vomiting, diarrhea and a diabetic with severe weakness History of Present Illness - Admitted From Admitted From:: Home via EMS - History Obtained From Records Reviewed: [facility] History obtained from: PADMINI Juarez Exam Limitations: None - History of Present Illness HPI Comment/Other: This is a 51-year-old female who has type 2 diabetes mellitus requiring insulin that we just admitted March 20 through March 22 for DKA. She presented with a panting respiration that made her feel short of breath. She is bloated and constipated. It was the panting that was involuntarily that made her come to the emergency room where we found her to be in DKA. She does have a history of alcohol abuse with pancreatitis resulting in hospitalization in 2009, and was in shock with this in April 2017 requiring another admission. She denies any alcohol use at this time. The patient herself states that she just does know what happened. She was doing "okay" and down to 20 units of Lantus a day. She did not think she needed it anymore. She does not give a story of checking her sugar very often. And then a couple of days ago had an abrupt onset of nausea, then the vomiting. She could not keep anything down, not even water. She denied any antecedent history of fever, chills. She does not have a sore throat, eustachian tube dysfunction, runny nose. She said the chest pain that started this morning after vomiting really bothered her and scared her and this is one of the reasons she came in. Pain is substernal, it feels like a constant burning. There is no squeezing, no pressure, no radiation. Again it started after vomiting. She has no urgency, frequency, or dysuria. No flank pain. No new skin lesions. No headache. Since this is another hospitalization, she is really worried about getting her sugar under control and getting into contact with a primary care provider. She says that was able to get an appointment but not till August 01. With her last admission she had a UTI and currently denies urgency, frequency, dysuria. Ambulance was called and she came with the symptoms and her glucose was 459. She had already taken 20 units of Lantus today. Temp was 35.1, heart rate 130, blood pressure 112/77, 100% on room air with a respiratory rate of 24. She weighs 50 kg, and exam findings were unremarkable other than frailty, and dehydration. Her carbon dioxide level is 6, anion gap is 32, BUN 12, creatinine 1.6. Glucose 467. Lactic acid 1.8. White cell count is 12.9, hemoglobin is 12.3. MCV is 106. Urinalysis had proteinuria, glucosuria, ketones, blood, too numerous to count red cells, 11-25 white cells, no squamous epithelial cells, few bacteria. The ER provider interpreted this is a UTI and she has received Rocephin. In addition to the Rocephin she has received fentanyl, started on an insulin drip, 2 L of normal saline. Repeat labs have not been done yet. After discussed testing with the ER provider, I will be bringing the patient into the ICU. I am requesting a central line. With electrolyte replacements, IV antibiotics, and an insulin drip, this patient will need multiple IV access. The ER provider has not been successful in getting a central line and is calling anesthesia. I was able to make contact with her DPOA/daughter at [phone]. Ms. Beatrice Daigle is currently in [facility] so there will be a time difference when we call. As far she knows, mom is the same as always. Mom will deny alcohol abuse but as far as the family is concerned, this patient continues to drink on a daily basis. They do feel that the root of many of her medical issues at this time is ongoing alcohol abuse. She does not remember if mom has gone through withdrawal recently. Mom is currently living with her father. She does state that she is the "caregiver" of her father. But the patient's father is alert, oriented, self-sufficient and really does not need help. It is just a way for her to get state aide and have a place to live. I did asked the patient when her last drink was. She said her last drink was a month ago. History - Past Medical History Cardiovascular: reports: None Respiratory: reports: None Neuro: reports: None Endocrine/Autoimmune: reports: Type 2 diabetes GI: reports: Pancreatitis (From alcohol abuse) ROUTE CLERK: reports: Other () : reports: None HEENT: reports: None Psych: reports: None Musculoskeletal: reports: None Derm: reports: None - Past Surgical History /ROUTE CLERK: reports: Tubal ligation - Family & Social History Family History Comment/Other: Father is 78 with heart disease manifested as stents and a pacer. Mom of unknown type of cancer. 1 brother has survived an unknown type of cancer. 1 brother is healthy. 1 brother has type 2 diabetes mellitus. Daughter is completely healthy Living Situation: With family (she lives w dad and takes care of him) Social History Notes: Born in [facility]. Has worked at [employer]. Was living in [place], then [place], then [place] to [facility] in 2013. Now living w dad and "taking care of him". No history of recreational substance abuse. She states that she does not drink anymore, but daughter says mom is not truthful. She said her last drink was 4 weeks ago.Currently a nonSmoker. Used to smoke a pack to a pack per day for 20 years - POLST Patient has POLST: No POLST Status: Full Code Meds/Allgy - Home Medications Home Medications: Ambulatory Orders Medication Instructions Recorded Confirmed Insulin Glargine [Lantus Solostar] 40 unit SQ QPM 06/24/17 03/20/22 Aspirin Chewable [[facility] 81 mg PO DAILY 03/20/22 03/20/22 Aspirin] Biotin 800 mcg PO DAILY 03/20/22 03/20/22 Ferrous Gluconate 324 mg PO DAILY #30 tablet 03/22/22 Sulfamethox/Trimeth 800/160 1 tablet PO BID 7 Days #8 tablet 03/22/22 [Bactrim Ds] - Allergies Allergies/Adverse Reactions: Allergies Allergy/AdvReac Type Severity Reaction Status Date / Time No Known Drug Allergies Allergy Verified 04/26/17 02:10 Review of Systems - Other Findings Other Findings: 13 point review of systems completed. All pertinent positives or negatives are dictated in the HPI Prior Level of Functionality: Independent with activities of daily living. Drives a car. 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 Is able to dress herself, feed herself, does not use durable medical equipment. Exam - Vital Signs Reviewed Vital Signs: Yes Vital Signs: Vital Signs x48h Temp Pulse Resp BP Pulse Ox 05/15/22 12:44 115 H 18 128/80 96 05/15/22 12:03 118 H 20 121/61 100 05/15/22 11:52 119 H 18 118/75 100 05/15/22 11:16 35.1 C L 130 H 24 112/77 100 - Physical Exam General Appearance: positive: Alert (But fatigued appearing and sleepy), Other (Pale, eyebrows painted in,) Eyes Bilateral: positive: PERRL, EOMI ENT: positive: Dry mucous membranes (And very dry lips.) Neck: positive: No JVD. negative: Stiff neck Respiratory: positive: No respiratory distress. negative: Wheezes, Rales, Rhonchi Cardiovascular: positive: Regular rate & rhythm, Tachycardia (Of 220 which is sinus tachycardia and spite of 2 L of IV fluid in the ER, and ongoing IV fluids after insulin drip stopped) Abdomen: positive: No organomegaly, Nml bowel sounds, No distention, Tenderness (There is mild and diffuse,). negative: Guarding, Rebound Skin: positive: Warm, Dry, Pallor Extremities: positive: Full ROM, No pedal edema Neurologic/Psychiatric: positive: Oriented x3, CN's nml (2-12), Motor nml Conclusion/Plan - Problem List (1) Diabetes with ketoacidosis Conclusion/Plan: At this time unknown what tipped her into DKA. She seems to have a urinalysis that indicates a UTI. The patient complained of some chest pain but no troponin was done nor was her EKG done. Chest pain has not recurred so I do not think this is the cause of it. She is only on Lantus. No sliding scale insulin. She does not check her sugars on a regular basis. So the element of noncompliance a nd probable alcohol abuse is the reason she may be in DKA again. Plan: Inpatient status ER provider tried to do a central line, then anesthesia jugular central line, but unable to get in because of severe dehydration. They tried IJ. DKA protocol with insulin drip, aggressive fluid resuscitation, management of potassium, phosphorus, magnesium, and calcium. When in the ER she was on 5 units/h drip. By the time she got to ICU glucose was 147. We have turned off the drip, and are now monitoring her. Repeat an hour and a half later is a glucose of 90. As such I am stopping insulin drip. I will not get a central line. I will start her on Lantus 20 units, feed her, and do sliding scale. 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 Patient has received Rocephin 1 g in the emergency room. I will continue Rocephin 1 g IV daily. Await urine cultures and adjust antibiotics as needed. Qualifiers: Urinary tract infection type: acute cystitis Hematuria presence: without hematuria Qualified Code(s): N30.00 - Acute cystitis without hematuria (3) Macrocytosis Conclusion/Plan: I will give part of her IV fluids as a banana bag. Give 2 banana bags and then switch over to vitamin and thiamine. Check alcohol level. Check toxicology screen. At this time she says that she is not abusing alcohol. (4) Alcohol abuse Conclusion/Plan: We will monitor for signs and symptoms of alcohol withdrawal. We would be looking for tachycardia, hypotension, hypertension, delirium, tremors, diaphoresis. If those do occur, I will start her on the CIWA protocol - Lab Results Lab results reviewed: Yes Fish Bones: 05/15/22 12:00 05/15/22 14:54 - Diagnostic Imaging Results Diagnostic Imaging Results: positive: Final report reviewed Diagnostic Imaging Results Comments: Chest x-ray is without acute cardiopulmonary abnormality
--- NOTE | 2022-05-15 14:56 | CONSULTATION NOTE ---
Consultation Report: consulted by ED for CVL placement. Informed consent obtained, pt prepped and draped in sterile fashion. US used to identify R IJ. Pt notably hypovolemic even with pt placed in steep trendelenburg. R IJ successfully accessed x3, but each time unable to thread the wire past approx 5" and almost instant clotting noted in syringe and along wire when retracting it. Attempts aborted due to inability to successfully thread wire without resistance. ED provider notified. Hospitalist, Dr Cerda notified as well and recommended to consult Gen Surgery for subclavian CVL should the need for access remain.
[2022-05-15 15:00] LABS: MUDS CUTOFF CONCENTRATIONS CUTOFF CONC BELOW:
[2022-05-15 15:03] LABS: VBG BASE EXCESS -21.1 mmol/L (-2 - +2); VBG HCO3 6.4 mmol/L (23-28); VBG PCO2 20.2 mmHg (41-51); VBG PO2 122.3 mmHg (25-47); VBG TOTAL CO2 7.1 mmol/L (24-29)
[2022-05-15 15:04] LABS: VBG OXYGEN SATURATION 98.2 % (60-80)
[2022-05-15 15:08] LABS: VBG PH 7.121 (7.31-7.41)
[2022-05-15 15:12] LABS: AMPHETAMINE SCREEN,URINE NEGATIVE (NEGATIVE); BARBITURATE SCREEN,UR NEGATIVE (NEGATIVE); BENZODIAZEPINES SCREEN, URINE NEGATIVE (NEGATIVE); COCAINE SCREEN URINE NEGATIVE (NEGATIVE); METHADONE SCREEN, URINE NEGATIVE (NEGATIVE); METHAMPHETAMINES SCREEN, URINE NEGATIVE (NEGATIVE); OPIATE SCREEN, URINE NEGATIVE (NEGATIVE); OXYCODONE SCREEN, URINE NEGATIVE (NEGATIVE); PROPOXYPHENE SCREEN, URINE NEGATIVE (NEGATIVE); THC CANNABINOID SCREEN, URINE NEGATIVE (NEGATIVE); TRICYCLIC ANTIDEPRESSANT,URINE NEGATIVE (NEGATIVE)
[2022-05-15 15:17] LABS: CALCIUM 8.3 mg/dL (8.5-10.3); CREATININE 1.3 mg/dL (0.4-1.0); POTASSIUM 3.5 mmol/L (3.5-5.0)
[2022-05-15] MEDS: INSULIN REGULAR HUMAN 100 UNIT in SODIUM CHLORIDE 0.9% 100ML 99 ML IV SCH (15:30)
[2022-05-15] MEDS: DEXTROSE 5%-0.9% NACL 1,000 ML IV SCH (16:55)
[2022-05-15] MEDS: SODIUM CHLORIDE 0.9% 1,000 ML IV SCH ×2 (17:07→23:48)
[2022-05-15] MEDS: PANTOPRAZOLE 40 MG TABLET PO SCH (17:12)
[2022-05-15] MEDS: SODIUM CHLORIDE FLUSH 0.9% 10 ML SYRINGE IVP SCH (17:12)
[2022-05-15] MEDS: ONDANSETRON 4 MG/2 ML VIAL IVP PRN (17:12)
[2022-05-15] MEDS ORDERED: MAGNESIUM SULFATE 2 GRAM 2 GM/50 ML BAG IV ONE (17:16)
[2022-05-15] MEDS ORDERED: SODIUM CHLORIDE 0.9% 1,000 ML IV ONE (17:30)
[2022-05-15] MEDS: POTASSIUM CHLOR 10 MEQ/100 ML 10 MEQ/100 ML BAG IV SCH ×4 (17:35→21:03)
[2022-05-15] MEDS: INSULIN LISPRO 300 UNIT/3 ML PEN SUBQ SCH (21:28)
[2022-05-15] MEDS: INSULIN GLARGINE-YFGN 300 UNIT/3 ML PEN SUBQ SCH (23:08)
[2022-05-15] MEDS: oxyCODONE 5 MG TABLET PO PRN (23:18)
[2022-05-15] MEDS: ACETAMINOPHEN 325 MG TABLET PO PRN (23:18)
[2022-05-16] MEDS ORDERED: NITROGLYCERIN SL 0.4 MG TABLET SL PRN (00:13)
[2022-05-16] MEDS: METOCLOPRAMIDE 10 MG/2 ML VIAL IVP PRN ×2 (00:47→06:47)
[2022-05-16] MEDS: ENOXAPARIN 60 MG/0.6 ML SYRINGE SUBQ SCH ×2 (00:48→12:00)
[2022-05-16] MEDS: DEXTROSE 5%-0.9% NACL 1,000 ML IV SCH ×2 (00:48→08:58)
[2022-05-16] MEDS: SODIUM CHLORIDE FLUSH 0.9% 10 ML SYRINGE IVP SCH ×3 (00:53→16:51)
[2022-05-16] MEDS: ONDANSETRON 4 MG/2 ML VIAL IVP PRN ×2 (03:10→08:57)
[2022-05-16 05:34] LABS: BASOPHILS % (AUTO) 0.5 %; EOSINOPHILS % (AUTO) 0.3 %; HCT - HEMATOCRIT 30.1 % (37.0-47.0); HGB - HEMOGLOBIN 9.9 g/dL (12.0-16.0); LYMPHOCYTES # (AUTO) 1.5 10^3/uL (1.5-3.5); LYMPHOCYTES % (AUTO) 20.2 %; MEAN CORPUSCULAR HGB CONC 32.9 g/dL (32.0-36.0); MEAN CORPUSCULAR VOLUME 97.4 fL (81.0-99.0); MEAN PLATELET VOLUME 9.5 fL (7.9-10.8); MONOCYTES # (AUTO) 0.8 10^3/uL (0.0-1.0); MONOCYTES % (AUTO) 10.3 %; NEUTROPHILS # (AUTO) 5.1 10^3/uL (1.5-6.6); NEUTROPHILS % (AUTO) 68.2 %; PLT - PLATELET COUNT 156 10^3/uL (130-450); RED BLOOD COUNT 3.09 10^6/uL (4.20-5.40); RED CELL DISTRIBUTION WIDTH 12.7 % (12.0-15.0); WHITE BLOOD COUNT 7.4 x10^3/uL (4.8-10.8)
[2022-05-16 05:44] LABS: CALCIUM, IONIZED 1.23 mmol/L (1.15-1.33); VBG PH 7.324 (7.31-7.41)
[2022-05-16 05:51] LABS: BUN - BLOOD UREA NITROGEN 9 mg/dL (6-20); CALCIUM 8.7 mg/dL (8.5-10.3); CARBON DIOXIDE - CO2 19 mmol/L (21-32); CHLORIDE 109 mmol/L (101-111); CREATININE 0.8 mg/dL (0.4-1.0); GFR - MDRD 75 (>89); GLUCOSE 147 mg/dL (70-100); MAGNESIUM 1.7 mg/dL (1.7-2.8); POTASSIUM 3.2 mmol/L (3.5-5.0); SODIUM 135 mmol/L (135-145)
[2022-05-16 05:56] LABS: KETONES, SERUM (ACETEST) SMALL (NEGATIVE)
[2022-05-16 06:03] LABS: PHOSPHORUS < 1.0 mg/dL (2.5-4.6)
[2022-05-16] MEDS ORDERED: MAGNESIUM SULFATE 2 GRAM 2 GM/50 ML BAG IV ONE (06:16)
[2022-05-16] MEDS: SODIUM CHLORIDE FLUSH 0.9% 10 ML SYRINGE IVP PRN (06:47)
[2022-05-16] MEDS: INSULIN LISPRO 300 UNIT/3 ML PEN SUBQ SCH ×4 (07:50→21:02)
[2022-05-16] MEDS: SODIUM CHLORIDE 0.9% 1,000 ML IV SCH (07:50)
[2022-05-16] MEDS: PANTOPRAZOLE 40 MG TABLET PO SCH (08:56)
[2022-05-16] MEDS: ACETAMINOPHEN 325 MG TABLET PO PRN ×3 (08:56→20:59)
[2022-05-16] MEDS: oxyCODONE 5 MG TABLET PO PRN ×3 (08:57→20:59)
[2022-05-16] MEDS: POTASSIUM PHOSPHATE 15 MMOL in SODIUM CHLORIDE 0.9% 250 ML IV SCH ×2 (08:57→12:01)
[2022-05-16] MEDS ORDERED: cefTRIAXone 1 GM in SODIUM CHLORIDE 0.9% MINIBAG 100 ML IV SCH (09:00)
[2022-05-16] MEDS ORDERED: ENOXAPARIN 40 MG/0.4 ML SYRINGE SUBQ SCH (09:00)
[2022-05-16 09:16] LABS: ESTIMATED AVERAGE GLUCOSE 298 mg/dL (70-100)
[2022-05-16] MEDS: INSULIN REGULAR HUMAN 100 UNIT in SODIUM CHLORIDE 0.9% 100ML 99 ML IV SCH (09:58)
--- NOTE | 2022-05-16 11:25 | PHARMACY PROGRESS NOTE ---
- Best Possible Medication History Admit Date and Time: 05/15/22 9999 Processed by: Pharmacy Medication History completed: Yes Patient Interview: Completed Secondary Source(s): Previous admit records As the person ultimately responsible for medication therapy, providers are able to order a medication from an existing home medication list in [facility] via the "Reconcile Routine" prior to Confirmation of that medication by clerical support. Such practice is discouraged except when the physician, in their clinical judgment, deems that a medical need exists for a medication without regard to previous use.
[2022-05-16] MEDS: PRENATAL VITAMIN TABLET PO SCH (12:00)
[2022-05-16] MEDS: THIAMINE 100 MG TABLET PO SCH (12:00)
[2022-05-16] MEDS: GI COCKTAIL 120 ML BOTTLE PO PRN ×2 (12:00→21:09)
--- NOTE | 2022-05-16 13:15 | PROVIDER PROGRESS NOTE ---
Progress Note May 16, 2022 1:11 PM She is alert and oriented. Last night before I left I stopped the insulin drip since glucose was already below 200. Switch her over to D5 normal saline. And started her on Lantus with some food. There is been no nausea, no vomiting. She just does not have an appetite. She denies chest pain, palpitations, but did have chest pain again last night. Repeat troponin ordered and is stable. She continues to have a burning belching chest pain that she associates with indigestion. Active Medications Acetaminophen (Acetaminophen 325 Mg Tablet) 650 mg PO Q4HR PRN PRN Reason: Pain 1 to 4, or Fever Last Admin: 05/16/22 08:56 Dose: 650 mg Enoxaparin Sodium (Enoxaparin 60 Mg/0.6 Ml Syringe) 50 mg SUBQ Q12H MAURICIO Last Admin: 05/16/22 12:00 Dose: 50 mg Ceftriaxone Sodium 1 gm/ (Sodium Chloride) 100 mls @ 200 mls/hr IV DAILY MAURICIO Last Infusion: 05/16/22 09:57 Dose: Infused Dextrose/Sodium Chloride (D5ns) 1,000 mls @ 125 mls/hr IV .Q8H MAURICIO Last Admin: 05/16/22 08:58 Dose: 125 mls/hr Potassium Phosphate 15 mmol/ (Sodium Chloride) 255 mls @ 63 mls/hr IV Q4H MAURICIO; Protocol Stop: 05/16/22 15:59 Last Admin: 05/16/22 12:01 Dose: 63 mls/hr Insulin Glargine-yfgn (Insulin Glargine-Yfgn 300 Unit/3 Ml Pen) 20 unit SUBQ QPM MAURICIO Last Admin: 05/15/22 23:08 Dose: 20 unit Insulin Human Lispro (Insulin Lispro 300 Unit/3 Ml Pen) 2 - 10 unit SUBQ 0800,1200,1700,2100 MAURICIO; Protocol Last Admin: 05/16/22 11:44 Dose: 8 unit Metoclopramide HCl (Metoclopramide 10 Mg/2 Ml Vial) 10 mg IVP Q6HR PRN PRN Reason: Nausea / Vomiting Last Admin: 05/16/22 06:47 Dose: 10 mg Multi-Ingredient Mouthwash/Gargle (Gi Cocktail 120 Ml Bottle) 30 ml PO Q4H PRN PRN Reason: Abdominal Pain Last Admin: 05/16/22 12:00 Dose: 30 ml Nitroglycerin (Nitroglycerin Sl 0.4 Mg Tablet) 0.4 mg SL Q5MIN PRN PRN Reason: Chest Pain Ondansetron HCl (Ondansetron Odt 4 Mg Tablet) 4 mg TL Q6HR PRN PRN Reason: Nausea / Vomiting Last Admin: 05/15/22 21:15 Dose: 4 mg Ondansetron HCl (Ondansetron 4 Mg/2 Ml Vial) 4 mg IVP Q6HR PRN PRN Reason: Nausea / Vomiting Last Admin: 05/16/22 08:57 Dose: 4 mg Oxycodone HCl (Oxycodone 5 Mg Tablet) 5 mg PO Q4HR PRN PRN Reason: Pain 5 to 7 Last Admin: 05/16/22 08:57 Dose: 5 mg Pantoprazole Sodium (Pantoprazole 40 Mg Tablet) 40 mg PO QDAC [facility] Last Admin: 05/16/22 08:56 Dose: 40 mg Multivit/Folic Acid/Iron ( Vitamin Tablet) 1 tab PO DAILYWM [facility] Last Admin: 05/16/22 12:00 Dose: 1 tab Sodium Chloride (Sodium Chloride Flush 0.9% 10 Ml Syringe) 10 ml IVP 0100,0900,1700 [facility] Last Admin: 05/16/22 08:58 Dose: 10 ml Sodium Chloride (Sodium Chloride Flush 0.9% 10 Ml Syringe) 10 ml IVP PRN PRN PRN Reason: NEEDED PER PROVIDER ORDERS Last Admin: 05/16/22 06:47 Dose: 10 ml Thiamine HCl (Thiamine 100 Mg Tablet) 100 mg PO DAILY [facility] Last Admin: 05/16/22 12:00 Dose: 100 mg Home Meds: Insulin Glargine [Lantus Solostar] 40 unit SQ QPM 06/24/17 Aspirin Chewable [[facility] Aspirin] 81 mg PO DAILY 03/20/22 Biotin 800 mcg PO DAILY 03/20/22 Exam: Temperature 36.6, pulse is 97, blood pressure 120/81, respirations 18, 100% on room air Thin, short statured female at 5 foot 3 inches tall that was 46.5 kg. She appears quite frail. Tired. Oral mucosa is improved. Lips were dry and cracked when she came in yesterday, and today they are moist and pink. Neck is supple Lungs are clear with shallow, unlabored respiration Regular rate and rhythm. She has been consistently tachycardic all day yesterday. I gave her a liter of normal saline bolus last night before he left the hospital and pulse improved with that. Instead of being 117 she came down to 109 this morning. I am by this dictation she is 97. Abdomen is soft, hypoactive bowel sounds, mild tenderness when I palpate diffusely but no severity. No rebound or guarding. Extremities are without edema. Labs: Sodium 135, potassium 3.2, carbon dioxide 19. Yesterday she was 6. Anion gap has closed. Yesterday she was 23. A1c is 12% Calcium is 8.7, phosphorus is less than 1, magnesium 1.7 Troponin is 60, 51, and 52 after being trended since yesterday afternoon. Urinalysis is growing E. coli Blood cultures are negative after 1 day White cell count 7.4 and has come down from 12.9 admission. Hemoglobin is 9.9. Yesterday she was not anemic, today she is. MCV has come down from 106 on admission and is 97 today. Platelets are 156. Assessment/Plan (1) Diabetes with ketoacidosis Conclusion/Plan: Since coming from ER to ICU in the afternoon 05/15, the insulin drip was stopped relatively quickly. Last night I transitioned her to Lantus 20 units subcu in the evening, sliding scale. This morning she had a glucose of 60. She really was not any eat breakfast but I strongly encouraged her to eat considering her Lantus was on board from last night. I then switched her IV fluids from normal saline to D5. Right before breakfast, after the 60 POC this morning and D5 IVF, she was 296 before breakfast. She needed sliding scale with that. A1c indicates that her type 2 diabetes mellitus is uncontrolled with hyperglycemia for at least the last 120 days. Plan: Transfer her to [facility] I am asking nursing to work with this patient to make sure that she can give her self sliding scale insulin before meals Change Lantus to daytime 20 units We explained to the patient that she must eat if she is going to take insulin I have asked social work/case management to please contact the PCP office and get her appointment moved to the next 1 to 2 weeks, not August 01. Qualifiers: Diabetes mellitus type: type 2 Diabetes mellitus terminal operator insulin use: with chcf use Diabetes mellitus complication detail: without coma Qualified Code(s): E11.10 - Type 2 diabetes mellitus with ketoacidosis without coma; Z79.4 - retirement (current) use of insulin (2) UTI (urinary tract infection) Conclusion/Plan: UA was positive on admission. White cell count was elevated on admission. Urine cultures have grown out E. coli again as they did last admission. Blood cultures are negative. Patient has received Rocephin 1 g in the emergency room. Plan: Today is day 2 of antibiotics, switch over to oral antibiotics tonight with Macrobid 100 mg po bid. With her last visit, her urine and blood cultures were positive, and her E. coli was pansensitive. Qualifiers: Urinary tract infection type: acute cystitis Hematuria presence: without hematuria Qualified Code(s): N30.00 - Acute cystitis without hematuria (3) Macrocytosis Without anemia, now anemic today Conclusion/Plan: She has completed 2 banana bags of thiamine, folic acid, and minerals. Alcohol level was less than 5. Talk screen negative for recreational substances. At this time she says that she is not abusing alcohol. Plan: vitamin and thiamine (4) Alcohol abuse Conclusion/Plan: We will monitor for signs and symptoms of alcohol withdrawal. We would be looking for tachycardia, hypotension, hypertension, delirium, tremors, diaphoresis. If those do occur, I will start her on the CIWA protocol (5) Burning chest discomfort. Probable reflux, or esophagitis after having nausea and vomiting. Troponins have been trended and are stable. Plan: Change Protonix IV to p.o., add GI cocktail to see if that helps
[2022-05-16 18:12] LABS: CALCIUM, IONIZED 1.18 mmol/L (1.15-1.33); VBG PH 7.308 (7.31-7.41)
[2022-05-16 18:20] LABS: MAGNESIUM 2.2 mg/dL (1.7-2.8); POTASSIUM 3.8 mmol/L (3.5-5.0)
[2022-05-16] MEDS: NITROFURANTOIN MACRO 100 MG CAPSULE PO SCH (20:59)
[2022-05-16] MEDS: INSULIN GLARGINE-YFGN 300 UNIT/3 ML PEN SUBQ SCH (21:00)
[2022-05-17] MEDS: SODIUM CHLORIDE FLUSH 0.9% 10 ML SYRINGE IVP SCH ×4 (00:14→20:55)
[2022-05-17] MEDS: ONDANSETRON 4 MG/2 ML VIAL IVP PRN (03:53)
[2022-05-17] MEDS: oxyCODONE 5 MG TABLET PO PRN ×3 (03:53→17:14)
[2022-05-17] MEDS: ACETAMINOPHEN 325 MG TABLET PO PRN ×3 (03:53→17:14)
[2022-05-17] MEDS: METOCLOPRAMIDE 10 MG/2 ML VIAL IVP PRN (04:46)
[2022-05-17] MEDS: SODIUM CHLORIDE FLUSH 0.9% 10 ML SYRINGE IVP PRN (04:46)
[2022-05-17] MEDS: PANTOPRAZOLE 40 MG TABLET PO SCH (05:08)
[2022-05-17 05:14] LABS: BASOPHILS % (AUTO) 0.6 %; EOSINOPHILS % (AUTO) 0.4 %; HCT - HEMATOCRIT 29.3 % (37.0-47.0); HGB - HEMOGLOBIN 9.6 g/dL (12.0-16.0); LYMPHOCYTES # (AUTO) 1.3 10^3/uL (1.5-3.5); LYMPHOCYTES % (AUTO) 26.3 %; MEAN CORPUSCULAR HEMOGLOBIN 32.1 pg (27.0-31.0); MEAN CORPUSCULAR HGB CONC 32.8 g/dL (32.0-36.0); MEAN PLATELET VOLUME 9.9 fL (7.9-10.8); MONOCYTES # (AUTO) 0.7 10^3/uL (0.0-1.0); MONOCYTES % (AUTO) 13.9 %; NEUTROPHILS # (AUTO) 2.9 10^3/uL (1.5-6.6); NEUTROPHILS % (AUTO) 58.6 %; PLT - PLATELET COUNT 114 10^3/uL (130-450); RED BLOOD COUNT 2.99 10^6/uL (4.20-5.40); WHITE BLOOD COUNT 4.9 x10^3/uL (4.8-10.8)
[2022-05-17 05:25] LABS: CALCIUM, IONIZED 1.21 mmol/L (1.15-1.33); VBG PH 7.425 (7.31-7.41)
[2022-05-17 05:33] LABS: BUN - BLOOD UREA NITROGEN < 5 mg/dL (6-20); CALCIUM 9.1 mg/dL (8.5-10.3); CARBON DIOXIDE - CO2 23 mmol/L (21-32); CHLORIDE 107 mmol/L (101-111); CREATININE 0.5 mg/dL (0.4-1.0); GFR - MDRD 129 (>89); GLUCOSE 97 mg/dL (70-100); POTASSIUM 3.5 mmol/L (3.5-5.0); SODIUM 138 mmol/L (135-145)
[2022-05-17] MEDS: THIAMINE 100 MG TABLET PO SCH (08:14)
[2022-05-17] MEDS: NITROFURANTOIN MACRO 100 MG CAPSULE PO SCH ×2 (08:14→20:55)
[2022-05-17] MEDS: PRENATAL VITAMIN TABLET PO SCH (08:14)
[2022-05-17] MEDS: ENOXAPARIN 40 MG/0.4 ML SYRINGE SUBQ SCH (08:14)
[2022-05-17] MEDS: GI COCKTAIL 120 ML BOTTLE PO PRN ×2 (08:15→17:09)
[2022-05-17] MEDS: INSULIN LISPRO 300 UNIT/3 ML PEN SUBQ SCH ×4 (08:23→20:53)
--- NOTE | 2022-05-17 17:40 | PROVIDER PROGRESS NOTE ---
Progress Note May 17, 2022 5:30 PM She has been able to keep food down today and actually ate enough. Her main problem is giving her Lantus if she does not eat and that she gets hypoglycemic. That was yesterday. Today she says that "I have been a good girl" and has eaten 3 meals. Glucose today was 115 before breakfast. 148 before lunch. And 145 before dinner. She got Lantus last night. She would like me to send prescriptions to her pharmacy. She would like the short acting pen and the Lantus pen. Temperature 36.7. Heart rate 78. Blood pressure 134/78. Respirations 16. 99% on room air. Very thin white female who looks stated age. Alert, oriented, cheerful. No acute distress. Neck is supple Lungs are clear to auscultation and percussion Regular rate and rhythm Abdomen is soft, hypoactive bowel sounds, nontender Extremities without edema Labs: Sodium 138, potassium 3.5, BUN less than 5, creatinine 0.5. White cell count 4.9, hemoglobin 9.6. She was admitted at 12.3. Platelets 114 Urine culture is final for E. coli and she is pansensitive. Assessment/Plan (1) Diabetes with ketoacidosis Conclusion/Plan: Since coming from ER to ICU in the afternoon 05/15, the insulin drip was stopped relatively quickly. I have transitioned to long acting and short acting. Since the night time lantus drops her glucose, I will switch to am lantus tomorrow in the am. Give her only a smaller dose of 5 units tonight in preparation of 20 units in the morning. I will also send the Rx for Lantus and humalog pens to pharmacy tonight wiht lancets and with strips. Her appt w the new PCP office is now 05/25/22 and my rx will carry her thru. Qualifiers: Diabetes mellitus type: type 2 Diabetes mellitus mcfp insulin use: with long distance billing operator use Diabetes mellitus complication detail: without coma Qualified Code(s): E11.10 - Type 2 diabetes mellitus with ketoacidosis without coma; Z79.4 - penitentiary (current) use of insulin (2) UTI (urinary tract infection) Conclusion/Plan: UA was positive on admission. White cell count was elevated on admission. Urine cultures have grown out E. coli again as they did last admission. Blood cultures are negative. Patient has received Rocephin 1 g in the emergency room. Plan: s/p 2 days of rocephin, switched over to oral antibiotics with Macrobid 100 mg po bid on 05/16. Today is Day #5 of abx. With her last visit, her urine and blood cultures were positive, and her E. coli was pansensitive. Since no bacteremia, Plan for total of 7 days and at dc she will need 2 days of pills. Qualifiers: Urinary tract infection type: acute cystitis Hematuria presence: without hematuria Qualified Code(s): N30.00 - Acute cystitis without hematuria (3) Macrocytosis Without anemia, now anemic today Conclusion/Plan: She has completed 2 banana bags of thiamine, folic acid, and minerals. Alcohol level was less than 5. Tox screen negative for recreational substances. At this time she says that she is not abusing alcohol. Plan: vitamin and thiamine (4) Alcohol abuse Conclusion/Plan: WE have monitored for signs and symptoms of alcohol withdrawal. We monitored for tachycardia, hypotension, hypertension, delirium, tremors, diaphoresis. She did not require the CIWA protocol (5) Burning chest discomfort. REsolved w GI cocktail Probable reflux, or esophagitis after having nausea and vomiting. Troponins have been trended and are stable. Plan: Change Protonix IV to p.o., add GI cocktail to see if that helps
[2022-05-17] MEDS ORDERED: INSULIN GLARGINE-YFGN 300 UNIT/3 ML PEN SUBQ SCH (21:00)
[2022-05-18] MEDS: oxyCODONE 5 MG TABLET PO PRN ×2 (00:04→17:37)
[2022-05-18] MEDS: ACETAMINOPHEN 325 MG TABLET PO PRN ×2 (00:04→17:37)
[2022-05-18] MEDS: GI COCKTAIL 120 ML BOTTLE PO PRN ×4 (00:08→17:37)
[2022-05-18] MEDS: ONDANSETRON 4 MG/2 ML VIAL IVP PRN (04:26)
[2022-05-18 05:20] LABS: BASOPHILS % (AUTO) 0.5 %; EOSINOPHILS % (AUTO) 0.5 %; HGB - HEMOGLOBIN 10.7 g/dL (12.0-16.0); LYMPHOCYTES % (AUTO) 46.5 %; MEAN CORPUSCULAR HEMOGLOBIN 31.8 pg (27.0-31.0); MEAN CORPUSCULAR HGB CONC 32.4 g/dL (32.0-36.0); MEAN CORPUSCULAR VOLUME 98.2 fL (81.0-99.0); MEAN PLATELET VOLUME 9.9 fL (7.9-10.8); MONOCYTES # (AUTO) 0.7 10^3/uL (0.0-1.0); MONOCYTES % (AUTO) 16.2 %; NEUTROPHILS # (AUTO) 1.5 10^3/uL (1.5-6.6); NEUTROPHILS % (AUTO) 36.1 %; PLT - PLATELET COUNT 129 10^3/uL (130-450); RED BLOOD COUNT 3.36 10^6/uL (4.20-5.40); WHITE BLOOD COUNT 4.2 x10^3/uL (4.8-10.8)
[2022-05-18 05:31] LABS: CALCIUM, IONIZED 1.18 mmol/L (1.15-1.33); VBG PH 7.452 (7.31-7.41)
[2022-05-18 05:36] LABS: CALCIUM 9.4 mg/dL (8.5-10.3); CREATININE 0.4 mg/dL (0.4-1.0); PHOSPHORUS 2.6 mg/dL (2.5-4.6); POTASSIUM 3.2 mmol/L (3.5-5.0)
[2022-05-18] MEDS: PANTOPRAZOLE 40 MG TABLET PO SCH (06:42)
[2022-05-18] MEDS: INSULIN GLARGINE-YFGN 300 UNIT/3 ML PEN SUBQ SCH (06:45)
[2022-05-18] MEDS: INSULIN LISPRO 300 UNIT/3 ML PEN SUBQ SCH ×4 (08:44→20:43)
[2022-05-18] MEDS: SODIUM CHLORIDE FLUSH 0.9% 10 ML SYRINGE IVP SCH ×2 (08:45→17:15)
[2022-05-18] MEDS: NITROFURANTOIN MACRO 100 MG CAPSULE PO SCH ×2 (08:45→20:43)
[2022-05-18] MEDS: THIAMINE 100 MG TABLET PO SCH (08:45)
[2022-05-18] MEDS: PRENATAL VITAMIN TABLET PO SCH (08:45)
[2022-05-18] MEDS: ENOXAPARIN 40 MG/0.4 ML SYRINGE SUBQ SCH (08:45)
[2022-05-18] MEDS ORDERED: POTASSIUM CHLORIDE 10 MEQ CAPSULE PO ONE (09:00)
--- NOTE | 2022-05-18 16:31 | PROVIDER PROGRESS NOTE ---
Assessment/Plan - Problem List (1) Diabetes mellitus with hyperglycemia Assessment/Plan: After coming from ER to ICU on 05/15/22, the insulin drip was stopped relatively quickly. Since then we have transitioned her to long acting and short acting Insulin. This morning her glucoses were 60 and 62, even after getting a decreased dose of evening Lantus last night. Plan: She is not yet ready for discharge until we can avoid hypoglycemia with her diabetic meds and management Since the night time lantus dose has dropped her glucose excessively, will only give am Lantus. Rx will be for Lantus and humalog We also ordered lancets and with strips. RN diabetic education was ordered. Today we learned she used to be on insulin but has not picked it up from her pharmacy and possibly a year Her appt w the new PCP office is now 05/25/22 and the new Insulin order should last her Qualifiers: Diabetes mellitus type: type 2 Diabetes mellitus long term care administrator insulin use: with long term care administrator use Diabetes mellitus complication detail: without coma Qualified Code(s): E11.10 - Type 2 diabetes mellitus with ketoacidosis without coma; Z79.4 - long-term (current) use of insulin (2) UTI (urinary tract infection) Conclusion/Plan: UA was positive on admission. White cell count was elevated on admission. Urine cultures have grown out E. coli again as they did last admission. Blood cultures are negative. Patient has received Rocephin 1 g in the emergency room. Plan: s/p 2 days of rocephin, switched over to oral antibiotics with Macrobid 100 mg po bid on 05/16. Today is Day #6 of total abx. With her last visit, her urine and blood cultures were positive, and her E. coli was pansensitive. Since no bacteremia, plan is for total of 7 days of antibx Qualifiers: Urinary tract infection type: acute cystitis Hematuria presence: without hematuria Qualified Code(s): N30.00 - Acute cystitis without hematuria (3) Macrocytosis Without anemia, now anemic today Conclusion/Plan: She has completed 2 banana bags of thiamine, folic acid, and minerals. Alcohol level was less than 5. Tox screen negative for recreational substances. At this time she says that she is not abusing alcohol. Plan: Daily vitamin and thiamine planned (4) Alcohol abuse Conclusion/Plan: We have monitored for signs and symptoms of alcohol withdrawal. We monitored for tachycardia, hypotension, hypertension, delirium, tremors, diaphoresis. She did not require the CIWA protocol (5) Burning chest discomfort. Resolved w GI cocktail Probable reflux, or esophagitis after having nausea and vomiting. Troponins have been trended and are stable. Plan: Change Protonix IV to p.o., add GI cocktail to see if that helps (6) DM with ketoacidosis Resolved - Current Meds Current Meds: Current Medications Generic Name Dose Route Start Last Admin Trade Name Freq PRN Reason Stop Dose Admin Acetaminophen 650 mg 05/15/22 13:59 05/18/22 00:04 Acetaminophen 325 Mg Tablet PO 650 mg Q4HR PRN Administration Pain 1 to 4, or Fever Enoxaparin Sodium 40 mg 05/17/22 09:00 05/18/22 08:45 Enoxaparin 40 Mg/0.4 Ml Syringe SUBQ 40 mg DAILY MAURICIO Administration Insulin Glargine-yfgn 20 unit 05/18/22 07:00 05/18/22 06:45 Insulin Glargine-Yfgn 300 Unit/3 Ml Pen SUBQ 20 unit QDAC MAURICIO Administration Insulin Human Lispro 1 - 5 unit 05/17/22 21:00 05/18/22 12:19 Insulin Lispro 300 Unit/3 Ml Pen SUBQ 4 unit 0800,1200,1700,2100 MAURICIO Administration Protocol Metoclopramide HCl 10 mg 05/16/22 00:10 05/17/22 04:46 Metoclopramide 10 Mg/2 Ml Vial IVP 10 mg Q6HR PRN Administration Nausea / Vomiting Multi-Ingredient Mouthwash/Gargle 30 ml 05/16/22 11:19 05/18/22 13:54 Gi Cocktail 120 Ml Bottle PO 30 ml Q4H PRN Administration Abdominal Pain Nitrofurantoin 100 mg 05/16/22 21:00 05/18/22 08:45 Nitrofurantoin Macro 100 Mg Capsule PO 100 mg BID MAURICIO Administration Ondansetron HCl 4 mg 05/15/22 13:59 05/15/22 21:15 Ondansetron Odt 4 Mg Tablet TL 4 mg Q6HR PRN Administration Nausea / Vomiting Ondansetron HCl 4 mg 05/15/22 13:59 05/18/22 04:26 Ondansetron 4 Mg/2 Ml Vial IVP 4 mg Q6HR PRN Administration Nausea / Vomiting Oxycodone HCl 5 mg 05/15/22 13:59 05/18/22 00:04 Oxycodone 5 Mg Tablet PO 5 mg Q4HR PRN Administration Pain 5 to 7 Pantoprazole Sodium 40 mg 05/15/22 17:00 05/18/22 06:42 Pantoprazole 40 Mg Tablet PO 40 mg QDAC MAURICIO Administration Multivit/Folic Acid/Iron 1 tab 05/16/22 12:00 05/18/22 08:45 Vitamin Tablet PO 1 tab DAILYWM MAURICIO Administration Sodium Chloride 10 ml 05/15/22 17:00 05/18/22 08:45 Sodium Chloride Flush 0.9% 10 Ml Syringe IVP 10 ml 0100,0900,1700 MAURICIO Administration Sodium Chloride 10 ml 05/15/22 13:59 05/17/22 04:46 Sodium Chloride Flush 0.9% 10 Ml Syringe IVP 10 ml PRN PRN Administration NEEDED PER PROVIDER ORDERS Thiamine HCl 100 mg 05/16/22 12:00 05/18/22 08:45 Thiamine 100 Mg Tablet PO 100 mg DAILY MAURICIO Administration - Lab Result Fish Bone Diagrams: 05/19/22 05:11 05/19/22 05:11 - Additional Planning My Orders: My Active Orders 05/18/22 08:59 Diabetic Education [RC] ONCE Subjective - Subjective Patient Reports: Other (She had shakiness and diaphoresis this morning and glucose was in the 60s. She had it again at about 1500 and glucose was again in the 60s) Objective Vital Signs: Vital Signs - 24 hr 05/17/22 05/17/22 05/18/22 20:34 23:31 04:10 Temperature 36.7 C 36.6 C 36.4 C L Heart Rate [ 82 73 81 Brachial] Respiratory 20 18 18 Rate Blood Pressure 129/82 H 145/79 H 143/86 H [Right Brachial artery] O2 Saturation 100 100 98 05/18/22 05/18/22 05/18/22 07:22 11:20 16:03 Temperature 36.4 C L 36.4 C L 36.4 C L Heart Rate [ 101 H 83 95 Brachial] Respiratory 16 16 16 Rate Blood Pressure 136/91 H 144/88 H 143/77 H [Right Brachial artery] O2 Saturation 99 100 100 Oxygen O2 Source Room air I&O (Last 24 Hrs): Intake and Output Totals x24h 05/16/22 05/17/22 05/18/22 23:59 23:59 23:59 Intake Total 4743.2 2435 760 Output Total 900 50 Balance 3843.2 2385 760 General: Alert, Oriented x3 HEENT: Atraumatic, EOMI Neck: Supple, No JVD Neuro: Alert, Non Focal Cardiovascular: Regular rate Respiratory: No respiratory distress Abdomen: Normal bowel sounds, Soft, No tenderness Extremities: No clubbing, No edema, No tenderness/swelling Skin: No rashes - Results Results: Laboratory Results WBC 4.2 x10^3/uL (4.8-10.8) L 05/18/22 04:48 RBC 3.36 10^6/uL (4.20-5.40) L 05/18/22 04:48 Hgb 10.7 g/dL (12.0-16.0) L 05/18/22 04:48 Hct 33.0 % (37.0-47.0) L 05/18/22 04:48 MCV 98.2 fL (81.0-99.0) 05/18/22 04:48 MCH 31.8 pg (27.0-31.0) H 05/18/22 04:48 MCHC 32.4 g/dL (32.0-36.0) 05/18/22 04:48 RDW 13.0 % (12.0-15.0) 05/18/22 04:48 Plt Count 129 10^3/uL (130-450) L 05/18/22 04:48 MPV 9.9 fL (7.9-10.8) 05/18/22 04:48 Neut # (Auto) 1.5 10^3/uL (1.5-6.6) 05/18/22 04:48 Lymph # (Auto) 2.0 10^3/uL (1.5-3.5) 05/18/22 04:48 [place] # (Auto) 0.7 10^3/uL (0.0-1.0) 05/18/22 04:48 Eos # (Auto) 0.0 10^3/uL (0.0-0.7) 05/18/22 04:48 Baso # (Auto) 0.0 10^3/uL (0.0-0.1) 05/18/22 04:48 Absolute Nucleated RBC 0.00 x10^3/uL 05/18/22 04:48 Nucleated RBC % 0.0 /100WBC 05/18/22 04:48 VBG pH 7.452 (7.31-7.41) H 05/18/22 04:48 VBG pCO2 20.2 mmHg (41-51) L 05/15/22 14:54 VBG pO2 122.3 mmHg (25-47) H 05/15/22 14:54 VBG HCO3 6.4 mmol/L (23-28) L 05/15/22 14:54 VBG Total CO2 7.1 mmol/L (24-29) L 05/15/22 14:54 VBG O2 Saturation 98.2 % (60-80) H 05/15/22 14:54 VBG Base Excess -21.1 mmol/L (-2 - +2) L 05/15/22 14:54 Ionized Calcium 1.18 mmol/L (1.15-1.33) 05/18/22 04:48 Sodium 141 mmol/L (135-145) 05/18/22 04:48 Potassium 3.2 mmol/L (3.5-5.0) L 05/18/22 04:48 Chloride 102 mmol/L (101-111) 05/18/22 04:48 Carbon Dioxide 29 mmol/L (21-32) 05/18/22 04:48 Anion Gap 10.0 (6-13) 05/18/22 04:48 BUN 7 mg/dL (6-20) 05/18/22 04:48 Creatinine 0.4 mg/dL (0.4-1.0) 05/18/22 04:48 Estimated GFR (MDRD) 167 (>89) 05/18/22 04:48 Glucose 66 mg/dL (70-100) L 05/18/22 04:48 Estimat Average Glucose 298 mg/dL (70-100) H 05/16/22 05:27 Hemoglobin A1c % 12.0 % (4.27-6.07) H 05/16/22 05:27 Lactic Acid 1.8 mmol/L (0.5-2.2) 05/15/22 12:00 Calcium 9.4 mg/dL (8.5-10.3) 05/18/22 04:48 Phosphorus 2.6 mg/dL (2.5-4.6) 05/18/22 04:48 Magnesium 2.0 mg/dL (1.7-2.8) 05/18/22 04:48 Total Bilirubin 1.2 mg/dL (0.2-1.0) H 05/15/22 12:00 AST 28 IU/L (10-42) 05/15/22 12:00 ALT 19 IU/L (10-60) 05/15/22 12:00 Alkaline Phosphatase 117 IU/L (42-121) 05/15/22 12:00 Troponin I High Sens 52.3 ng/L (2.3-14.8) H* 05/16/22 05:27 Total Protein 8.0 g/dL (6.7-8.2) 05/15/22 12:00 Albumin 3.8 g/dL (3.2-5.5) 05/15/22 12:00 Globulin 4.2 g/dL (2.1-4.2) 05/15/22 12:00 Albumin/Globulin Ratio 0.9 (1.0-2.2) L 05/15/22 12:00 Lipase 22 U/L (22-51) 05/15/22 12:00 Urine Color LT RED 05/15/22 11:42 Urine Clarity CLEAR (CLEAR) 05/15/22 11:42 Urine pH 6.0 PH (5.0-7.5) 05/15/22 11:42 Ur Specific [place] >=1.030 (1.002-1.030) H 05/15/22 11:42 Urine Protein 100 mg/dL (NEGATIVE) H 05/15/22 11:42 Urine Glucose (UA) 500 mg/dL (NEGATIVE) H 05/15/22 11:42 Urine Ketones >=80 mg/dL (NEGATIVE) H 05/15/22 11:42 Urine Occult Blood LARGE (NEGATIVE) H 05/15/22 11:42 Urine Nitrite NEGATIVE (NEGATIVE) 05/15/22 11:42 Urine Bilirubin NEGATIVE (NEGATIVE) 05/15/22 11:42 Urine Urobilinogen 0.2 (NORMAL) E.U./dL (NORMAL) 05/15/22 11:42 Ur Leukocyte Esterase NEGATIVE (NEGATIVE) 05/15/22 11:42 Urine RBC TNTC /HPF (0-5) H 05/15/22 11:42 Urine WBC 11-25 /HPF (0-5) H 05/15/22 11:42 Ur Squamous Epith Cells NONE SEEN (<= Few) 05/15/22 11:42 Urine Bacteria Few /HPF (None Seen) 05/15/22 11:42 Urine Casts 0-2 Hyaline Casts /LPF 05/15/22 11:42 Ur Microscopic Review INDICATED 05/15/22 11:42 Urine Culture Comments INDICATED 05/15/22 11:42 Nasal Adenovirus (PCR) NOT DETECTED 05/15/22 12:54 Nasal B. parapertussis DNA (PCR) NOT DETECTED 05/15/22 12:54 Nasal Coronavir 229E PCR NOT DETECTED 05/15/22 12:54 Nasal Coronavir HKU1 PCR NOT DETECTED 05/15/22 12:54 Nasal Coronavir NL63 PCR NOT DETECTED 05/15/22 12:54 Nasal Coronavir OC43 PCR NOT DETECTED 05/15/22 12:54 Nasal Enterovir/Rhinovir PCR NOT DETECTED 05/15/22 12:54 Nasal Influenza B PCR NOT DETECTED 05/15/22 12:54 Nasal Influenza A PCR NOT DETECTED 05/15/22 12:54 Nasal Parainfluen 1 PCR NOT DETECTED 05/15/22 12:54 Nasal Parainfluen 2 PCR NOT DETECTED 05/15/22 12:54 Nasal Parainfluen 3 PCR NOT DETECTED 05/15/22 12:54 Nasal Parainfluen 4 PCR NOT DETECTED 05/15/22 12:54 Nasal RSV (PCR) NOT DETECTED 05/15/22 12:54 Nasal Screen MRSA (PCR) NEGATIVE (NEGATIVE) 05/15/22 15:30 Nasal B.pertussis DNA PCR NOT DETECTED 05/15/22 12:54 Nasal C.pneumoniae (PCR) NOT DETECTED 05/15/22 12:54 [place] Human Metapneumo PCR NOT DETECTED 05/15/22 12:54 Nasal M.pneumoniae (PCR) NOT DETECTED 05/15/22 12:54 Nasal SARS-CoV-2 (PCR) NOT DETECTED 05/15/22 12:54 Urine Opiates Screen NEGATIVE (NEGATIVE) 05/15/22 11:42 Ur Oxycodone Screen NEGATIVE (NEGATIVE) 05/15/22 11:42 Urine Methadone Screen NEGATIVE (NEGATIVE) 05/15/22 11:42 Ur Propoxyphene Screen NEGATIVE (NEGATIVE) 05/15/22 11:42 Ur Barbiturates Screen NEGATIVE (NEGATIVE) 05/15/22 11:42 Ur Tricyclics Screen NEGATIVE (NEGATIVE) 05/15/22 11:42 Ur Phencyclidine Scrn NEGATIVE (NEGATIVE) 05/15/22 11:42 Ur Amphetamine Screen NEGATIVE (NEGATIVE) 05/15/22 11:42 U Methamphetamines Scrn NEGATIVE (NEGATIVE) 05/15/22 11:42 U Benzodiazepines Scrn NEGATIVE (NEGATIVE) 05/15/22 11:42 Urine Cocaine Screen NEGATIVE (NEGATIVE) 05/15/22 11:42 U Cannabinoids Screen NEGATIVE (NEGATIVE) 05/15/22 11:42 Ethyl Alcohol < 5.0 mg/dL 05/15/22 14:54 Serum Ketones SMALL (NEGATIVE) H 05/16/22 05:27
[2022-05-19] MEDS: GI COCKTAIL 120 ML BOTTLE PO PRN ×4 (03:25→21:17)
[2022-05-19] MEDS: oxyCODONE 5 MG TABLET PO PRN ×2 (05:24→21:17)
[2022-05-19] MEDS: ACETAMINOPHEN 325 MG TABLET PO PRN ×2 (05:24→21:17)
[2022-05-19 05:33] LABS: BASOPHILS % (AUTO) 0.5 %; EOSINOPHILS # (AUTO) 0.1 10^3/uL (0.0-0.7); EOSINOPHILS % (AUTO) 1.9 %; HCT - HEMATOCRIT 34.4 % (37.0-47.0); HGB - HEMOGLOBIN 11.2 g/dL (12.0-16.0); LYMPHOCYTES # (AUTO) 1.7 10^3/uL (1.5-3.5); LYMPHOCYTES % (AUTO) 44.3 %; MEAN CORPUSCULAR HEMOGLOBIN 31.7 pg (27.0-31.0); MEAN CORPUSCULAR HGB CONC 32.6 g/dL (32.0-36.0); MEAN CORPUSCULAR VOLUME 97.5 fL (81.0-99.0); MEAN PLATELET VOLUME 9.5 fL (7.9-10.8); MONOCYTES # (AUTO) 0.5 10^3/uL (0.0-1.0); MONOCYTES % (AUTO) 13.8 %; NEUTROPHILS # (AUTO) 1.5 10^3/uL (1.5-6.6); NEUTROPHILS % (AUTO) 39.2 %; PLT - PLATELET COUNT 140 10^3/uL (130-450); RED BLOOD COUNT 3.53 10^6/uL (4.20-5.40); RED CELL DISTRIBUTION WIDTH 12.8 % (12.0-15.0); WHITE BLOOD COUNT 3.8 x10^3/uL (4.8-10.8)
[2022-05-19 05:46] LABS: CALCIUM 9.7 mg/dL (8.5-10.3); CREATININE 0.5 mg/dL (0.4-1.0); POTASSIUM 4.1 mmol/L (3.5-5.0)
[2022-05-19] MEDS: INSULIN GLARGINE-YFGN 300 UNIT/3 ML PEN SUBQ SCH (06:30)
[2022-05-19] MEDS: SODIUM CHLORIDE FLUSH 0.9% 10 ML SYRINGE IVP SCH ×3 (06:30→17:11)
[2022-05-19] MEDS: PANTOPRAZOLE 40 MG TABLET PO SCH (06:30)
--- NOTE | 2022-05-19 07:56 | PROVIDER PROGRESS NOTE ---
Assessment/Plan - Problem List (1) Diabetes mellitus with hyperglycemia Assessment/Plan: Med list that was reconciled, shows no insulin whatsoever. However yesterday 05/18 she reported to me and to Alana Torres, [employer] Furn[employer], that she has been taking long-acting insulin which she has "stored up" at home, but she had no short acting insulin at home. And she has not seen a provider in 1 year. After the insulin drip was stopped, we have transitioned her to long acting and sliding scale short acting Insulin. Since she had 2 episodes yesterday of glu 60 and 62, we stopped the nighttime long acting Insulin. This morning, she has a glu of 300 but in afternoon glu was 58. Plan: She is not yet ready for discharge until we can avoid hypoglycemia and better control her hyperglycemia with her diabetic meds and management Change am Lantus from 20U to 10U, due to afternoon hypoglycemia. Give no evening long acting Insulin, because of repeated a.m. hypoglycemia here several days ago and because she may not be reliable to give twice a day Lantus, as per Alana Torres. Give 4U short-acting Insulin with each meal, as recommended to Alana by Natalie Pressley RN DM Educator in [facility] [place]. Discussed with Alana today. Rx after DCh will be for Lantus and Humalog. We also ordered lancets and with strips. Her appt w Dr Vang, new PCP office is now 05/25/22 and the new Insulin order should last her Qualifiers: Diabetes mellitus type: type 2 Diabetes mellitus intermediate project manager insulin use: with long-term use Diabetes mellitus complication detail: without coma Qualified Code(s): E11.10 - Type 2 diabetes mellitus with ketoacidosis without coma; Z79.4 - manager long term care (current) use of insulin (2) E. coli UTI (urinary tract infection) Conclusion/Plan: UA was positive on admission. White cell count was elevated on admission. Urine cultures have grown out E. coli again as they did last admission. Blood cultures are negative. Patient received Rocephin 1 g in the emergency room. Plan: s/p 2 days of rocephin, then was switched over to oral antibiotics with Macrobid 100 mg po bid on 05/16. Today is Day #7 of 7 of abx course. With her last visit, her urine and blood cultures were positive, and her E. coli was pansensitive. Since no bacteremia, plan is for total of 7 days of antibx Qualifiers: Urinary tract infection type: acute cystitis Hematuria presence: without hematuria Qualified Code(s): N30.00 - Acute cystitis without hematuria (3) Macrocytosis Without anemia, now anemic today Conclusion/Plan: She has completed 2 banana bags of thiamine, folic acid, and minerals. Alcohol level was less than 5. Tox screen negative for recreational substances. At this time she says that she is not abusing alcohol but there was a past Hx Plan: Daily vitamin and thiamine planned (4) Alcohol abuse Conclusion/Plan: We have monitored for signs and symptoms of alcohol withdrawal. We monitored for tachycardia, hypotension, hypertension, delirium, tremors, diaphoresis. She did not require the CIWA protocol (5) Burning chest discomfort. Resolved w GI cocktail Probable reflux, or esophagitis after having nausea and vomiting. Troponins have been trended and are stable. Plan: Cont Protonix p.o., add GI cocktail to see if needed (6) DM with ketoacidosis Resolved - Current Meds Current Meds: Current Medications Generic Name Dose Route Start Last Admin Trade Name Freq PRN Reason Stop Dose Admin Acetaminophen 650 mg 05/15/22 13:59 05/19/22 05:24 Acetaminophen 325 Mg Tablet PO 650 mg Q4HR PRN Administration Pain 1 to 4, or Fever Enoxaparin Sodium 40 mg 05/17/22 09:00 05/18/22 08:45 Enoxaparin 40 Mg/0.4 Ml Syringe SUBQ 40 mg DAILY MAURICIO Administration Insulin Human Lispro 1 - 5 unit 05/17/22 21:00 05/18/22 20:43 Insulin Lispro 300 Unit/3 Ml Pen SUBQ 5 unit 0800,1200,1700,2100 MAURICIO Administration Protocol Metoclopramide HCl 10 mg 05/16/22 00:10 05/17/22 04:46 Metoclopramide 10 Mg/2 Ml Vial IVP 10 mg Q6HR PRN Administration Nausea / Vomiting Multi-Ingredient Mouthwash/Gargle 30 ml 05/16/22 11:19 05/19/22 03:25 Gi Cocktail 120 Ml Bottle PO 30 ml Q4H PRN Administration Abdominal Pain Nitrofurantoin 100 mg 05/16/22 21:00 05/18/22 20:43 Nitrofurantoin Macro 100 Mg Capsule PO 100 mg BID MAURICIO Administration Ondansetron HCl 4 mg 05/15/22 13:59 05/15/22 21:15 Ondansetron Odt 4 Mg Tablet TL 4 mg Q6HR PRN Administration Nausea / Vomiting Ondansetron HCl 4 mg 05/15/22 13:59 05/18/22 04:26 Ondansetron 4 Mg/2 Ml Vial IVP 4 mg Q6HR PRN Administration Nausea / Vomiting Oxycodone HCl 5 mg 05/15/22 13:59 05/19/22 05:24 Oxycodone 5 Mg Tablet PO 5 mg Q4HR PRN Administration Pain 5 to 7 Pantoprazole Sodium 40 mg 05/15/22 17:00 05/19/22 06:30 Pantoprazole 40 Mg Tablet PO 40 mg QDAC MAURICIO Administration Multivit/Folic Acid/Iron 1 tab 05/16/22 12:00 05/18/22 08:45 Vitamin Tablet PO 1 tab DAILYWM MAURICIO Administration Sodium Chloride 10 ml 05/15/22 17:00 05/19/22 06:30 Sodium Chloride Flush 0.9% 10 Ml Syringe IVP 10 ml 0100,0900,1700 MAURICIO Administration Sodium Chloride 10 ml 05/15/22 13:59 05/17/22 04:46 Sodium Chloride Flush 0.9% 10 Ml Syringe IVP 10 ml PRN PRN Administration NEEDED PER PROVIDER ORDERS Thiamine HCl 100 mg 05/16/22 12:00 05/18/22 08:45 Thiamine 100 Mg Tablet PO 100 mg DAILY MAURICIO Administration - Lab Result Fish Bone Diagrams: 05/19/22 05:11 05/19/22 05:11 - Additional Planning My Orders: My Active Orders 05/18/22 08:59 Diabetic Education [RC] ONCE 05/19/22 07:41 Blood Glucose Checks - Eating [RC] 0800,1200,1700,2100 Initiate Hypoglycemia Protocol [RC] .protocol 05/19/22 08:00 Insulin Lispro [Humalog Kwikpen U-100] 4 unit SUBQ TIDWM 05/20/22 07:00 Insulin Glargine-Yfgn [Semglee] 10 unit SUBQ QDAC Subjective - Subjective Patient Reports: Feeling Better, Resting Comfortably, No Complaints (except she felt shaky when glu was 58 again today) Objective Vital Signs: Vital Signs - 24 hr 05/18/22 05/18/22 05/18/22 11:20 16:03 21:00 Temperature 36.4 C L 36.4 C L 36.5 C Heart Rate [ 83 95 Brachial] Heart Rate [ 95 Monitoring electrodes] Respiratory 16 16 18 Rate Blood Pressure 144/88 H 143/77 H 155/90 H [Right Brachial artery] O2 Saturation 100 100 99 05/19/22 05/19/22 05:05 07:36 Temperature 36.5 C 36.5 C Heart Rate [ 79 69 Brachial] Heart Rate [ Monitoring electrodes] Respiratory 16 15 Rate Blood Pressure 132/74 H 120/78 [Right Brachial artery] O2 Saturation 99 99 Oxygen O2 Source Room air I&O (Last 24 Hrs): Intake and Output Totals x24h 05/17/22 05/18/22 05/19/22 23:59 23:59 23:59 Intake Total 2435 1260 Output Total 50 Balance 2385 1260 General: Alert, Oriented x3 HEENT: Mucous membr. moist/pink Neck: Supple Neuro: Alert, Non Focal Cardiovascular: Regular rate Respiratory: No respiratory distress Abdomen: Soft, No tenderness Extremities: No clubbing, No edema - Results Results: Laboratory Results WBC 3.8 x10^3/uL (4.8-10.8) L 05/19/22 05:11 RBC 3.53 10^6/uL (4.20-5.40) L 05/19/22 05:11 Hgb 11.2 g/dL (12.0-16.0) L 05/19/22 05:11 Hct 34.4 % (37.0-47.0) L 05/19/22 05:11 MCV 97.5 fL (81.0-99.0) 05/19/22 05:11 MCH 31.7 pg (27.0-31.0) H 05/19/22 05:11 MCHC 32.6 g/dL (32.0-36.0) 05/19/22 05:11 RDW 12.8 % (12.0-15.0) 05/19/22 05:11 Plt Count 140 10^3/uL (130-450) 05/19/22 05:11 MPV 9.5 fL (7.9-10.8) 05/19/22 05:11 Neut # (Auto) 1.5 10^3/uL (1.5-6.6) 05/19/22 05:11 Lymph # (Auto) 1.7 10^3/uL (1.5-3.5) 05/19/22 05:11 [place] # (Auto) 0.5 10^3/uL (0.0-1.0) 05/19/22 05:11 Eos # (Auto) 0.1 10^3/uL (0.0-0.7) 05/19/22 05:11 Baso # (Auto) 0.0 10^3/uL (0.0-0.1) 05/19/22 05:11 Absolute Nucleated RBC 0.00 x10^3/uL 05/19/22 05:11 Nucleated RBC % 0.0 /100WBC 05/19/22 05:11 VBG pH 7.452 (7.31-7.41) H 05/18/22 04:48 VBG pCO2 20.2 mmHg (41-51) L 05/15/22 14:54 VBG pO2 122.3 mmHg (25-47) H 05/15/22 14:54 VBG HCO3 6.4 mmol/L (23-28) L 05/15/22 14:54 VBG Total CO2 7.1 mmol/L (24-29) L 05/15/22 14:54 VBG O2 Saturation 98.2 % (60-80) H 05/15/22 14:54 VBG Base Excess -21.1 mmol/L (-2 - +2) L 05/15/22 14:54 Ionized Calcium 1.18 mmol/L (1.15-1.33) 05/18/22 04:48 Sodium 140 mmol/L (135-145) 05/19/22 05:11 Potassium 4.1 mmol/L (3.5-5.0) 05/19/22 05:11 Chloride 101 mmol/L (101-111) 05/19/22 05:11 Carbon Dioxide 29 mmol/L (21-32) 05/19/22 05:11 Anion Gap 10.0 (6-13) 05/19/22 05:11 BUN 11 mg/dL (6-20) 05/19/22 05:11 Creatinine 0.5 mg/dL (0.4-1.0) 05/19/22 05:11 Estimated GFR (MDRD) 129 (>89) 05/19/22 05:11 Glucose 237 mg/dL (70-100) H 05/19/22 05:11 Estimat Average Glucose 298 mg/dL (70-100) H 05/16/22 05:27 Hemoglobin A1c % 12.0 % (4.27-6.07) H 05/16/22 05:27 Lactic Acid 1.8 mmol/L (0.5-2.2) 05/15/22 12:00 Calcium 9.7 mg/dL (8.5-10.3) 05/19/22 05:11 Phosphorus 2.6 mg/dL (2.5-4.6) 05/18/22 04:48 Magnesium 2.0 mg/dL (1.7-2.8) 05/18/22 04:48 Total Bilirubin 1.2 mg/dL (0.2-1.0) H 05/15/22 12:00 AST 28 IU/L (10-42) 05/15/22 12:00 ALT 19 IU/L (10-60) 05/15/22 12:00 Alkaline Phosphatase 117 IU/L (42-121) 05/15/22 12:00 Troponin I High Sens 52.3 ng/L (2.3-14.8) H* 05/16/22 05:27 Total Protein 8.0 g/dL (6.7-8.2) 05/15/22 12:00 Albumin 3.8 g/dL (3.2-5.5) 05/15/22 12:00 Globulin 4.2 g/dL (2.1-4.2) 05/15/22 12:00 Albumin/Globulin Ratio 0.9 (1.0-2.2) L 05/15/22 12:00 Lipase 22 U/L (22-51) 05/15/22 12:00 Urine Color LT RED 05/15/22 11:42 Urine Clarity CLEAR (CLEAR) 05/15/22 11:42 Urine pH 6.0 PH (5.0-7.5) 05/15/22 11:42 Ur Specific Alex >=1.030 (1.002-1.030) H 05/15/22 11:42 Urine Protein 100 mg/dL (NEGATIVE) H 05/15/22 11:42 Urine Glucose (UA) 500 mg/dL (NEGATIVE) H 05/15/22 11:42 Urine Ketones >=80 mg/dL (NEGATIVE) H 05/15/22 11:42 Urine Occult Blood LARGE (NEGATIVE) H 05/15/22 11:42 Urine Nitrite NEGATIVE (NEGATIVE) 05/15/22 11:42 Urine Bilirubin NEGATIVE (NEGATIVE) 05/15/22 11:42 Urine Urobilinogen 0.2 (NORMAL) E.U./dL (NORMAL) 05/15/22 11:42 Ur Leukocyte Esterase NEGATIVE (NEGATIVE) 05/15/22 11:42 Urine RBC TNTC /HPF (0-5) H 05/15/22 11:42 Urine WBC 11-25 /HPF (0-5) H 05/15/22 11:42 Ur Squamous Epith Cells NONE SEEN (<= Few) 05/15/22 11:42 Urine Bacteria Few /HPF (None Seen) 05/15/22 11:42 Urine Casts 0-2 Hyaline Casts /LPF 05/15/22 11:42 Ur Microscopic Review INDICATED 05/15/22 11:42 Urine Culture Comments INDICATED 05/15/22 11:42 Nasal Adenovirus (PCR) NOT DETECTED 05/15/22 12:54 Nasal B. parapertussis DNA (PCR) NOT DETECTED 05/15/22 12:54 Nasal Coronavir 229E PCR NOT DETECTED 05/15/22 12:54 Nasal Coronavir HKU1 PCR NOT DETECTED 05/15/22 12:54 Nasal Coronavir NL63 PCR NOT DETECTED 05/15/22 12:54 Nasal Coronavir OC43 PCR NOT DETECTED 05/15/22 12:54 Nasal Enterovir/Rhinovir PCR NOT DETECTED 05/15/22 12:54 Nasal Influenza B PCR NOT DETECTED 05/15/22 12:54 Nasal Influenza A PCR NOT DETECTED 05/15/22 12:54 Nasal Parainfluen 1 PCR NOT DETECTED 05/15/22 12:54 Nasal Parainfluen 2 PCR NOT DETECTED 05/15/22 12:54 Nasal Parainfluen 3 PCR NOT DETECTED 05/15/22 12:54 Nasal Parainfluen 4 PCR NOT DETECTED 05/15/22 12:54 Nasal RSV (PCR) NOT DETECTED 05/15/22 12:54 Nasal Screen MRSA (PCR) NEGATIVE (NEGATIVE) 05/15/22 15:30 Nasal B.pertussis DNA PCR NOT DETECTED 05/15/22 12:54 Nasal C.pneumoniae (PCR) NOT DETECTED 05/15/22 12:54 Gadiel Human Metapneumo PCR NOT DETECTED 05/15/22 12:54 Nasal M.pneumoniae (PCR) NOT DETECTED 05/15/22 12:54 Nasal SARS-CoV-2 (PCR) NOT DETECTED 05/15/22 12:54 Urine Opiates Screen NEGATIVE (NEGATIVE) 05/15/22 11:42 Ur Oxycodone Screen NEGATIVE (NEGATIVE) 05/15/22 11:42 Urine Methadone Screen NEGATIVE (NEGATIVE) 05/15/22 11:42 Ur Propoxyphene Screen NEGATIVE (NEGATIVE) 05/15/22 11:42 Ur Barbiturates Screen NEGATIVE (NEGATIVE) 05/15/22 11:42 Ur Tricyclics Screen NEGATIVE (NEGATIVE) 05/15/22 11:42 Ur Phencyclidine Scrn NEGATIVE (NEGATIVE) 05/15/22 11:42 Ur Amphetamine Screen NEGATIVE (NEGATIVE) 05/15/22 11:42 U Methamphetamines Scrn NEGATIVE (NEGATIVE) 05/15/22 11:42 U Benzodiazepines Scrn NEGATIVE (NEGATIVE) 05/15/22 11:42 Urine Cocaine Screen NEGATIVE (NEGATIVE) 05/15/22 11:42 U Cannabinoids Screen NEGATIVE (NEGATIVE) 05/15/22 11:42 Ethyl Alcohol < 5.0 mg/dL 05/15/22 14:54 Serum Ketones SMALL (NEGATIVE) H 05/16/22 05:27
[2022-05-19] MEDS ORDERED: INSULIN LISPRO 300 UNIT/3 ML PEN SUBQ SCH (08:00)
[2022-05-19] MEDS: INSULIN LISPRO 300 UNIT/3 ML PEN SUBQ SCH ×3 (09:27→17:11)
[2022-05-19] MEDS: PRENATAL VITAMIN TABLET PO SCH (09:28)
[2022-05-19] MEDS: NITROFURANTOIN MACRO 100 MG CAPSULE PO SCH ×2 (09:28→21:15)
[2022-05-19] MEDS: ENOXAPARIN 40 MG/0.4 ML SYRINGE SUBQ SCH (09:28)
[2022-05-19] MEDS: THIAMINE 100 MG TABLET PO SCH (09:28)
[2022-05-20] MEDS: SODIUM CHLORIDE FLUSH 0.9% 10 ML SYRINGE IVP SCH ×3 (00:40→16:50)
[2022-05-20] MEDS: GI COCKTAIL 120 ML BOTTLE PO PRN ×3 (02:35→16:34)
[2022-05-20 06:23] LABS: BASOPHILS % (AUTO) 0.6 %; EOSINOPHILS # (AUTO) 0.1 10^3/uL (0.0-0.7); EOSINOPHILS % (AUTO) 1.9 %; HCT - HEMATOCRIT 32.5 % (37.0-47.0); HGB - HEMOGLOBIN 10.4 g/dL (12.0-16.0); LYMPHOCYTES # (AUTO) 1.4 10^3/uL (1.5-3.5); LYMPHOCYTES % (AUTO) 44.6 %; MEAN CORPUSCULAR HEMOGLOBIN 31.6 pg (27.0-31.0); MEAN CORPUSCULAR VOLUME 98.8 fL (81.0-99.0); MEAN PLATELET VOLUME 9.4 fL (7.9-10.8); MONOCYTES # (AUTO) 0.6 10^3/uL (0.0-1.0); MONOCYTES % (AUTO) 19.6 %; PLT - PLATELET COUNT 151 10^3/uL (130-450); RED BLOOD COUNT 3.29 10^6/uL (4.20-5.40); RED CELL DISTRIBUTION WIDTH 13.2 % (12.0-15.0); WHITE BLOOD COUNT 3.1 x10^3/uL (4.8-10.8)
[2022-05-20 06:37] LABS: CALCIUM 9.2 mg/dL (8.5-10.3); CREATININE 0.6 mg/dL (0.4-1.0)
[2022-05-20] MEDS: PANTOPRAZOLE 40 MG TABLET PO SCH (06:37)
[2022-05-20] MEDS ORDERED: INSULIN GLARGINE-YFGN 300 UNIT/3 ML PEN SUBQ SCH ×2 (07:00)
[2022-05-20] MEDS: INSULIN LISPRO 300 UNIT/3 ML PEN SUBQ SCH ×3 (08:02→16:50)
[2022-05-20] MEDS: THIAMINE 100 MG TABLET PO SCH (08:02)
[2022-05-20] MEDS: NITROFURANTOIN MACRO 100 MG CAPSULE PO SCH (08:02)
[2022-05-20] MEDS: ENOXAPARIN 40 MG/0.4 ML SYRINGE SUBQ SCH (08:02)
[2022-05-20] MEDS: PRENATAL VITAMIN TABLET PO SCH (08:02)
--- NOTE | 2022-05-20 08:17 | Discharge Plan ---
Discharge Plan Problem Reviewed?: Yes Disposition: Home, Self Care Condition: Stable Prescriptions: Insulin Lispro [Humalog Kwikpen U-100] 3 unit SUBQ TIDWM #1 ea Pen Needle, Diabetic [Insulin Pen Needle] 1 each MC QID #120 ea Lancets 1 each MC QID #120 each Insulin Glargine [Lantus Solostar] 10 unit SQ DAILY #1 ea Pantoprazole [Protonix] 40 mg PO QDAC #30 tab Thiamine [Vitamin B-1] 100 mg PO DAILY #30 tab Diet: Diabetic Activity Restrictions: Activity as Tolerated Shower Restrictions: No Driving Restrictions: No Health Concerns: You are hospitalized in severe condition, in the ICU, to treat diabetic ketoacidosis. Following that we needed to adjust various insulin doses to prevent very low glucose levels and treat very high glucose levels. You are being sent home with new prescription for long-acting insulin (OK to take 11 U every morning) and mealtime short acting insulin (OK to take 4 U with meals). Also prescribed are new lancets, and glucometer strips. Keep the appointment to see your new primary care provider in the next several days. He will further adjust your insulin doses if needed, and he needs to be the one to prescribe the continuous glucose monitor. You may also again attend the [facility] diabetic education clinic. We found the cause for the DKA was a urinary tract infection. You have completed a course of antibiotics, first IV then orally, while you were here to treat that urinary tract infection. For your stomach and the acid pain and indigestion, there is no pharmacy that carries the "GI cocktail" which we mix in the hospital. We have prescribed for you Protonix, and also you may try taking oral Mylanta to treat those symptoms. Plan of Treatment: As above. Care Goals: Improvement in symptoms and stabilization are the goals. Assessment: The patient understands and is agreeable with the plan. Additional Instructions or Follow Up instructions: If you develop any new or worrisome symptoms, call your PCP for advice, or come to the ER. Follow-Up Care: [facility] - Diabetes Ed No Smoking: If you smoke, Please STOP! Call for help. Follow-up with: Zac Vang MD [Provider Admit Priv/Credential] -
[2022-05-20] MEDS: ACETAMINOPHEN 325 MG TABLET PO PRN (12:04)
[2022-05-20] MEDS: oxyCODONE 5 MG TABLET PO PRN (12:04)
--- NOTE | 2022-05-20 16:32 | DISCHARGE SUMMARY ---
Discharge Summary Admit Date: 05/15/22 Discharge Date: 05/20/22 Discharging Provider: Dr Jelena Gamez Primary Care Provider: Dr Zac Vang Condition at Discharge: Stable Discharge Disposition: 01 Home, Self Care - HPI History of Present Illness: This is a 51-year-old female who has type 2 diabetes mellitus requiring insulin that we just admitted March 20 through March 22 for DKA. She presented with a panting respiration that made her feel short of breath. She is bloated and constipated. It was the panting that was involuntarily that made her come to the emergency room where we found her to be in DKA. She does have a history of alcohol abuse with pancreatitis resulting in hospitalization in 2009, and was in shock with this in April 2017 requiring another admission. She denies any alcohol use at this time. The patient herself states that she just does know what happened. She was doing "okay" and down to 20 units of Lantus a day. She did not think she needed it anymore. She does not give a story of checking her sugar very often. And then a couple of days ago had an abrupt onset of nausea, then the vomiting. She could not keep anything down, not even water. She denied any antecedent history of fever, chills. She does not have a sore throat, eustachian tube dysfunction, runny nose. She said the chest pain that started this morning after vomiting really bothered her and scared her and this is one of the reasons she came in. Pain is substernal, it feels like a constant burning. There is no squeezing, no pressure, no radiation. Again it started after vomiting. She has no urgency, frequency, or dysuria. No flank pain. No new skin lesions. No headache. Since this is another hospitalization, she is really worried about getting her sugar under control and getting into contact with a primary care provider. She says that was able to get an appointment but not till August 01. With her last admission she had a UTI and currently denies urgency, frequency, dysuria. Ambulance was called and she came with the symptoms and her glucose was 459. She had already taken 20 units of Lantus today. Temp was 35.1, heart rate 130, blood pressure 112/77, 100% on room air with a respiratory rate of 24. She weighs 50 kg, and exam findings were unremarkable other than frailty, and dehydration. Her carbon dioxide level is 6, anion gap is 32, BUN 12, creatinine 1.6. Glucose 467. Lactic acid 1.8. White cell count is 12.9, hemoglobin is 12.3. MCV is 106. Urinalysis had proteinuria, glucosuria, ketones, blood, too numerous to count red cells, 11-25 white cells, no squamous epithelial cells, few bacteria. The ER provider interpreted this is a UTI and she has received Rocephin. In addition to the Rocephin she has received fentanyl, started on an insulin drip, 2 L of normal saline. Repeat labs have not been done yet. After d iscussed testing with the ER provider, I will be bringing the patient into the ICU. I am requesting a central line. With electrolyte replacements, IV antibiotics, and an insulin drip, this patient will need multiple IV access. The ER provider has not been successful in getting a central line and is calling anesthesia. I was able to make contact with her DPOA/daughter at [phone]. Ms. Beatrice Daigle is currently in [facility] so there will be a time difference when we call. As far she knows, mom is the same as always. Mom will deny alcohol abuse but as far as the family is concerned, this patient continues to drink on a daily basis. They do feel that the root of many of her medical issues at this time is ongoing alcohol abuse. She does not remember if mom has gone through withdrawal recently. Mom is currently living with her father. She does state that she is the "caregiver" of her father. But the patient's father is alert, oriented, self-sufficient and really does not need help. It is just a way for her to get state aide and have a place to live. I did asked the patient when her last drink was. She said her last drink was a month ago. - HOSPITAL COURSE Hospital Course: (1) DM with ketoacidosis She was admitted to the ICU, started on DKA protocol with IV saline, insulin drip. Her underlying UTI was treated. Eventually her insulin drip was transitioned over to Lantus and short acting insulin and she was transferred out of the ICU (2) E. coli UTI (urinary tract infection) UA was positive on admission. White cell count was elevated on admission. Urine cultures grew out E. coli, as they did last admission. Blood cultures were negative. Patient received iv Rocephin 2 days, then was switched over to oral antibiotics using Macrobid 100 mg po bid. She completed a 7 day course of antibiotics while here. (3) Diabetes mellitus with hyperglycemia Med list that was reconciled, showed no insulin whatsoever. However she said she was taking long-acting insulin which she has "stored up" at home, but she had no short acting insulin at home, and had not seen a provider in 1 year. After the insulin drip, we transitioned her to long acting and sliding scale short acting Insulin. However, she had 2 days of glu 60 and 62 and was symptomatic, and we stopped her nighttime long acting Insulin dose. Then she had 2 afternoons with a glu of 58 and we needed to decrease her morning Lantus. Her discharge was delayed by about 2 days because we had to continue to adjust Lantus and also her short acting insulin doses, and finally she was discharged to take morning Lantus 11 U and mealtime short-acting Insulin 4U with each meal, as recommended to Alana by Natalie Pressley, RN DM Educator in [facility] We prescribed new Lantus and Humalog Insulin pens and also ordered lancets and strips. Her appt w Dr Vang, new PCP, is now 05/25/22. It is recommended that Dr Vang order a continuous glucose monitor (CGM) for her. She would also qualify to again come to [facility] [place] education classes. (4) Alcohol abuse A CIWA protocol and prn Ativan was ordered, but she had no signs of withdrawal. (5) Macrocytosis Without anemia, She received 2 banana bags with thiamine, folic acid, and minerals. At this time she stated that she is not abusing alcohol but there was a past Hx. He was discharged on daily thiamine orally (6) Burning chest discomfort Probably reflux or esophagitis, after having nausea and vomiting. Troponins were checks and were stable. Sx resolved w GI cocktail and Protonix p.o. - ALLERGIES Allergies/Adverse Reactions: Allergies Allergy/AdvReac Type Severity Reaction Status Date / Time No Known Drug Allergies Allergy Verified 04/26/17 02:10 - MEDICATIONS Home Medications: Ambulatory Orders Medication Instructions Recorded Confirmed Aspirin Chewable [[place] 81 mg PO DAILY 03/20/22 05/16/22 Aspirin] Biotin 800 mcg PO DAILY 03/20/22 05/16/22 Ferrous Gluconate 324 mg PO DAILY #30 tablet 03/22/22 05/16/22 Lancets 1 each MC QID #120 each 05/17/22 Pen Needle, Diabetic [Insulin Pen 1 each MC QID #120 ea 05/17/22 Needle] Insulin Glargine [Lantus Solostar] 10 unit SQ DAILY #1 ea 05/20/22 Insulin Lispro [Humalog Kwikpen 3 unit SUBQ TIDWM #1 ea 05/20/22 U-100] Pantoprazole [Protonix] 40 mg PO QDAC #30 tab 05/20/22 Thiamine [Vitamin B-1] 100 mg PO DAILY #30 tab 05/20/22 - PHYSICAL EXAM AT DISCHARGE General Appearance: positive: No acute distress, Alert Eyes Bilateral: positive: Normal inspection, EOMI ENT: positive: ENT inspection nml, No signs of dehydration Neck: positive: Nml inspection, No JVD Respiratory: positive: No respiratory distress, Breath sounds nml Cardiovascular: positive: Regular rate & rhythm, No murmur Abdomen: positive: Non-tender, No distention Skin: positive: Warm, Dry, Pallor Extremities: positive: Non-tender, No pedal edema Neurologic/Psychiatric: positive: Oriented x3, Motor nml - LABS Result Diagrams: 05/20/22 06:08 05/20/22 06:08 - DIAGNOSTIC IMAGING Diagnostic Imaging Results: Final report reviewed - FOLLOW UP Follow Up: See new PCP, Dr Vang next week. A CGM order by her PCP is recommended for the pt to use. - TIME SPENT Time Spent in Discharge (Minutes): 45
[2022-05-20 16:46] VITALS: BP 133/75
== END 2022-05-20 18:00 | disposition home or self-care (01) | DRG 638 ==
LOC: EDUNIT# → ED 10:48 → ICU 13:59 → MS2 05-16 13:15
PROVIDERS: ADMIT Specialist; ATTEND Internal Medicine
DX: E11.10 Type 2 diabetes mellitus with ketoacidosis without coma (principal); N30.00 Acute cystitis without hematuria; B96.20 Unspecified Escherichia coli [E. coli] as the cause of diseases classified elsewhere; F10.10 Alcohol abuse, uncomplicated; D75.89 Other specified diseases of blood and blood-forming organs; K21.9 Gastro-esophageal reflux disease without esophagitis; K20.90 Esophagitis, unspecified without bleeding; K59.00 Constipation, unspecified; E86.0 Dehydration; R77.8 Other specified abnormalities of plasma proteins; D64.9 Anemia, unspecified; Z20.822 Contact with and (suspected) exposure to COVID-19; Z87.891 Personal history of nicotine dependence; Z79.4 Long term (current) use of insulin
CPT/HCPCS: 36415; 36556; 71045; 80048; 80053; 80306; 80320; 81001; 82009; 82330; 82803; 83036; 83605; 83690; 83735; 84100; 84132; 84484; 85025; 87040; 87086; 87150; 87181; 87633; 93005; 96361; 96374; 96375; 99285; 99291; A9270; J1650; J1815; J2765; 81003

== ENCOUNTER 2022-07-05 07:22 | Outpatient (CLI) | payer MEDICAID ==
[2022-07-05 12:14] LABS: BASOPHILS # (AUTO) 0.1 10^3/uL (0.0-0.1); BASOPHILS % (AUTO) 0.9 %; EOSINOPHILS # (AUTO) 0.1 10^3/uL (0.0-0.7); EOSINOPHILS % (AUTO) 0.9 %; HCT - HEMATOCRIT 42.2 % (37.0-47.0); HGB - HEMOGLOBIN 12.9 g/dL (12.0-16.0); LYMPHOCYTES # (AUTO) 2.8 10^3/uL (1.5-3.5); LYMPHOCYTES % (AUTO) 43.1 %; MEAN CORPUSCULAR HEMOGLOBIN 31.9 pg (27.0-31.0); MEAN CORPUSCULAR HGB CONC 30.6 g/dL (32.0-36.0); MEAN CORPUSCULAR VOLUME 104.2 fL (81.0-99.0); MEAN PLATELET VOLUME 9.6 fL (7.9-10.8); MONOCYTES # (AUTO) 0.5 10^3/uL (0.0-1.0); MONOCYTES % (AUTO) 7.2 %; NEUTROPHILS # (AUTO) 3.1 10^3/uL (1.5-6.6); NEUTROPHILS % (AUTO) 47.7 %; PLT - PLATELET COUNT 221 10^3/uL (130-450); RED BLOOD COUNT 4.05 10^6/uL (4.20-5.40); RED CELL DISTRIBUTION WIDTH 14.8 % (12.0-15.0); WHITE BLOOD COUNT 6.5 x10^3/uL (4.8-10.8)
[2022-07-05 12:43] LABS: ALBUMIN 4.2 g/dL (3.2-5.5); ALBUMIN/GLOBULIN RATIO 1.1 (1.0-2.2); ALKALINE PHOSPHATASE 97 IU/L (42-121); ALT ALANINE AMINOTRANSFERASE 27 IU/L (10-60); AST ASPARTATE AMINOTRANSFERASE 38 IU/L (10-42); BILIRUBIN,TOTAL 0.8 mg/dL (0.2-1.0); BUN - BLOOD UREA NITROGEN 12 mg/dL (6-20); CALCIUM 9.5 mg/dL (8.5-10.3); CARBON DIOXIDE - CO2 23 mmol/L (21-32); CHLORIDE 105 mmol/L (101-111); CHOL/HDL RATIO 1.7 (<4.4); CHOLESTEROL 197 mg/dL; CREATININE 0.6 mg/dL (0.4-1.0); GFR - MDRD 104 (>89); GLUCOSE 130 mg/dL (70-100); HDL CHOLESTEROL 119 mg/dL; LDL CHOLESTEROL,CALCULATED 59 mg/dL; LDL/HDL RATIO 0.5 (<4.4); POTASSIUM 3.4 mmol/L (3.5-5.0); SODIUM 141 mmol/L (135-145); TRIGLYCERIDES 95 mg/dL; VLDL CHOLESTEROL 19 mg/dL
[2022-07-05 12:45] LABS: ESTIMATED AVERAGE GLUCOSE 235 mg/dL (70-100); HEMOGLOBIN A1c% 9.8 % (4.27-6.07)
[2022-07-05 12:47] LABS: THYROID STIMULATING HORMONE 1.4 uIU/mL (0.34-5.60)
== END 2022-07-05 07:23 | disposition home or self-care (01) ==
LOC: LAB.N 07:22
PROVIDERS: ATTEND Nurse Practitioner
DX: E11.9 Type 2 diabetes mellitus without complications (principal); Z13.220 Encounter for screening for lipoid disorders; R53.83 Other fatigue
CPT/HCPCS: 36415; 80053; 80061; 82043; 82570; 83036; 83721; 84443; 85025

== ENCOUNTER 2022-07-06 08:00 | Outpatient (CLI) | payer MEDICAID ==
[2022-07-06 18:18] LABS: CREATININE,URINE 79.3 mg/dL; MICROALBUMIN,URINE 20.3 mg/dL (0-300.0)
== END 2022-07-06 23:59 | disposition home or self-care (01) ==
LOC: LAB.N 08:00
PROVIDERS: ATTEND Nurse Practitioner
DX: E11.9 Type 2 diabetes mellitus without complications (principal)
CPT/HCPCS: 82043; 82570

== ENCOUNTER 2022-10-07 08:46 | Outpatient (CLI) | payer MEDICAID ==
[2022-10-07 12:24] LABS: BASOPHILS % (AUTO) 0.7 %; EOSINOPHILS % (AUTO) 0.7 %; HCT - HEMATOCRIT 37.8 % (37.0-47.0); HGB - HEMOGLOBIN 12.2 g/dL (12.0-16.0); LYMPHOCYTES # (AUTO) 2.6 10^3/uL (1.5-3.5); LYMPHOCYTES % (AUTO) 61.4 %; MEAN CORPUSCULAR HEMOGLOBIN 33.2 pg (27.0-31.0); MEAN CORPUSCULAR HGB CONC 32.3 g/dL (32.0-36.0); MEAN PLATELET VOLUME 9.5 fL (7.9-10.8); MONOCYTES # (AUTO) 0.4 10^3/uL (0.0-1.0); MONOCYTES % (AUTO) 10.1 %; NEUTROPHILS # (AUTO) 1.1 10^3/uL (1.5-6.6); NEUTROPHILS % (AUTO) 26.9 %; PLT - PLATELET COUNT 292 10^3/uL (130-450); RED BLOOD COUNT 3.67 10^6/uL (4.20-5.40); RED CELL DISTRIBUTION WIDTH 14.2 % (12.0-15.0); WHITE BLOOD COUNT 4.2 x10^3/uL (4.8-10.8)
[2022-10-07 12:40] LABS: ESTIMATED AVERAGE GLUCOSE 192 mg/dL (70-100); HEMOGLOBIN A1c% 8.3 % (4.27-6.07)
[2022-10-07 12:49] LABS: CRP - C-REACTIVE PROTEIN 0.5 mg/dL (<0.5)
[2022-10-07 13:00] LABS: ALBUMIN/GLOBULIN RATIO 1.2 (1.0-2.2); BILIRUBIN,TOTAL 0.6 mg/dL (0.2-1.0); CALCIUM 9.2 mg/dL (8.5-10.3); CREATININE 0.7 mg/dL (0.6-1.3); POTASSIUM 4.4 mmol/L (3.5-4.5); TOTAL PROTEIN 7.4 g/dL (6.4-8.9)
== END 2022-10-07 08:47 | disposition home or self-care (01) ==
LOC: LAB.N 08:46
PROVIDERS: ATTEND Nurse Practitioner
DX: E11.9 Type 2 diabetes mellitus without complications (principal); H57.11 Ocular pain, right eye
CPT/HCPCS: 36415; 80053; 82043; 82570; 83036; 85025; 85651; 86140

== ENCOUNTER 2023-08-11 07:35 | Outpatient (CLI) | payer MEDICAID ==
[2023-08-11 12:07] LABS: BASOPHILS % (AUTO) 0.6 %; EOSINOPHILS # (AUTO) 0.2 10^3/uL (0.0-0.7); HCT - HEMATOCRIT 36.7 % (37.0-47.0); HGB - HEMOGLOBIN 11.6 g/dL (12.0-16.0); LYMPHOCYTES % (AUTO) 40.3 %; MEAN CORPUSCULAR HEMOGLOBIN 31.5 pg (27.0-31.0); MEAN CORPUSCULAR HGB CONC 31.6 g/dL (32.0-36.0); MEAN CORPUSCULAR VOLUME 99.7 fL (81.0-99.0); MONOCYTES # (AUTO) 0.6 10^3/uL (0.0-1.0); MONOCYTES % (AUTO) 11.6 %; NEUTROPHILS # (AUTO) 2.2 10^3/uL (1.5-6.6); NEUTROPHILS % (AUTO) 44.1 %; PLT - PLATELET COUNT 196 10^3/uL (130-450); RED BLOOD COUNT 3.68 10^6/uL (4.20-5.40); RED CELL DISTRIBUTION WIDTH 13.7 % (12.0-15.0)
[2023-08-11 12:43] LABS: ESTIMATED AVERAGE GLUCOSE 194 mg/dL (70-100); HEMOGLOBIN A1c% 8.4 % (4.27-6.07)
[2023-08-11 13:14] LABS: ALBUMIN 4.6 g/dL (3.2-5.5); ALBUMIN/GLOBULIN RATIO 1.5 (1.0-2.2); BILIRUBIN,TOTAL 0.3 mg/dL (0.2-1.0); CALCIUM 10.2 mg/dL (8.5-10.3); CREATININE 0.9 mg/dL (0.6-1.3); POTASSIUM 3.8 mmol/L (3.5-4.5); TOTAL PROTEIN 7.7 g/dL (6.4-8.9)
[2023-08-11 13:23] LABS: THYROID STIMULATING HORMONE 5.15 uIU/mL (0.34-5.60)
== END 2023-08-11 07:36 | disposition home or self-care (01) ==
LOC: LAB.N 07:35
PROVIDERS: ATTEND Nurse Practitioner
DX: I10 Essential (primary) hypertension (principal); E11.9 Type 2 diabetes mellitus without complications; R00.0 Tachycardia, unspecified; F41.9 Anxiety disorder, unspecified; F32.A Depression, unspecified
CPT/HCPCS: 36415; 80053; 83036; 84439; 84443; 85025